=== PATIENT | male | born 1935 | race Caucasian/White ===

== ENCOUNTER 2016-07-15 13:29 | Emergency (ER) | payer MEDICARE ==
[~2016-07-15] VITALS: Ht 172.7 cm; Wt 81.8 kg
[~2016-07-15 13:29] MED LIST: CIPR500T4 PO; DILTCD120 PO; ECOT81TA2 PO; METO25 PO; NORC10TA2 PO
[2016-07-15 13:34] VITALS: BP 132/73; PULSE 88; RESP 16; TEMP 97.8; O2SAT 96
[2016-07-15] MEDS ORDERED: DILT120T PO (13:50)
[2016-07-15] MEDS ORDERED: METO25TA3 PO (13:50)
--- NOTE | 2016-07-15 14:05 | PD ---
HPI Chief Complaint: Complaint Time Seen by Provider: 13:58 Travel History International Travel<30 days: No Contact w/Intl Traveler<30days: No Traveled to known affect area: No History of Present Illness HPI This patient feels well. He has a chronic Root catheter that he is supposed to change every 3 months. He came here to get a Root catheter change. No fever or flank pain. Symptoms severity is mild PFSH Past Medical History Alzheimer's Disease: Yes ("beginning stages" ) Arthritis: Yes (right knee- limps) Autoimmune Disease: No Heart Rhythm Problems: No Cancer: No Cardiovascular Problems: Yes High Cholesterol: No Chest Pain: No Congestive Heart Failure: No Diminished Hearing: Yes (right side hearing aids) Endocrine: No Gastrointestinal Disorders: No Genitourinary: No Hypertension: Yes Immune Disorder: No Inguinal Hernia: Yes Implanted Vascular Access Dvce: No Musculoskeletal: Yes Neurologic: No Psychiatric: No Reproductive: No Respiratory: No PNEUMOCCOCAL Vaccine (Year): 1 Past Surgical History Abdominal Surgery: Yes (gall bladder, appendectomy) Appendectomy: Yes Cardiac Surgery: No Ear Surgery: No Endocrine Surgery: No Eye Surgery: Yes (cataract removal) Genitourinary Surgery: No Gynecologic Surgery: No Joint Replacement: Yes (L shoulder and R knee) Neurologic Surgery: Yes Oral Surgery: No Thoracic Surgery: No Other Surgery: Yes Social History Alcohol Use: Yes (Occassional) Tobacco Use: No Substance Use: No Allergies-Medications (Allergen,Severity, Reaction): Coded Allergies: Sulfa (Verified Allergy, Severe, Hives, 07/15/16) Reported Meds & Prescriptions Reported Meds & Active Scripts Active Reported Metoprolol Tartrate 25 Mg Tab 12.5 Mg PO BID Diltiazem (Diltiazem HCl) 120 Mg Tab 120 Mg PO DAILY Review of Systems General / Constitutional: No: Fever HENT: No: Headaches Cardiovascular: No: Chest Pain or Discomfort Physical Exam Narrative GASTROINTESTINAL: Abdomen soft, non-tender, nondistended. Positive bowel sounds. No hepato-splenomegaly, or palpable masses. No guarding. SKIN: Inspection shows no rash or ulcers. Palpation shows no induration or nodules. Data Data Last Documented VS Vital Signs Date Time Temp Pulse Resp B/P Pulse Ox O2 Delivery O2 Flow Rate FiO2 07/15/16 13:34 97.8 88 16 132/73 96 Orders Urinary Catheter - Remove (07/15/16 13:58) Urinary Catheter Insert/Apply (07/15/16 13:58) MDM Medical Decision Making Medical Screen Exam Complete: Yes Emergency Medical Condition: Yes Medical Record Reviewed: Yes Differential Diagnosis Root catheter change, catheter malfunction, UTI Narrative Course I have reviewed the patient's electronic medical record. We are going to change up Root catheter manager mental health has spoken with the patient about follow-up and better ways to get the catheter change than emergency room visit Diagnosis Primary Impression: Urinary catheter (Root) change required Additional Instructions: The patient was advised to follow up with their physician and return if they worsen. Arrange outpatient Root catheter change for next time Med/Other Pt SpecificInfo: Other Disposition: 01 DISCHARGE HOME Condition: Stable Anshu Bradshaw MD Jul 15, 2016 14:05
== END 2016-07-15 14:29 | disposition home or self-care (01) ==
LOC: PHED 13:29
DX: Z46.6 Encounter for fitting and adjustment of urinary device (principal); F02.80 Dementia in other diseases classified elsewhere, unspecified severity, without behavioral disturbance, psychotic disturbance, mood disturbance, and anxiety; G30.9 Alzheimer's disease, unspecified; I10 Essential (primary) hypertension
CPT/HCPCS: 51702

== ENCOUNTER 2016-08-11 11:56 | Inpatient (IN) | payer MEDICARE ==
[2016-08-11] VITALS (13 sets, daily range): BP systolic 93–152; BP diastolic 52–85; PULSE 73–165; RESP 16–32; TEMP 98.3–100.2; O2SAT 96–100
[~2016-08-11] VITALS: Ht 152.4 cm; Wt 88.2 kg
[~2016-08-11 11:56] MED LIST changes: -CIPR500T4 PO; +DILT120T PO; -DILTCD120 PO; -ECOT81TA2 PO; -METO25 PO; +METO25TA3 PO; -NORC10TA2 PO
--- NOTE | 2016-08-11 12:37 | PD ---
HPI Chief Complaint: Altered Mental Status Time Seen by Provider: 12:35 Travel History International Travel<30 days: No Contact w/Intl Traveler<30days: No Traveled to known affect area: No History of Present Illness HPI 80-year-old male with a history of hypertension, dementia and indwelling Root catheter is brought to the emergency department from home by EMS for evaluation of altered mental status. Per EMS report the patient's called because he has been more confused than his baseline over the past few days and she thinks he has a urinary tract infection. Per EMS patient gets recurrent urinary tract infections which does cause him more confusion. The patient is noted to have audible wheezing but denies shortness of breath, per EMS his initial oxygen saturation was 89-90% on room air and he was placed on 2 L nasal cannula which brought his saturations to 98%. The patient denies any complaints. He denies any chest pain, shortness of breath, difficulty breathing, abdominal pain, nausea, vomiting, diarrhea, headache, dizziness. The patient is awake, alert and oriented to person, place but not time. When asked why he is in the hospital he states "because my is a pain." He denies smoking cigarettes but states he did used to smoke for many years. No other complaints. PFSH Past Medical History Alzheimer's Disease: Yes ("beginning stages" ) Arthritis: Yes (right knee- limps) Autoimmune Disease: No Heart Rhythm Problems: No Cancer: No Cardiovascular Problems: Yes High Cholesterol: No Chest Pain: No Congestive Heart Failure: No Diminished Hearing: Yes (right side hearing aids) Endocrine: No Gastrointestinal Disorders: No Genitourinary: No Hypertension: Yes Immune Disorder: No Inguinal Hernia: Yes Implanted Vascular Access Dvce: No Musculoskeletal: Yes Neurologic: No Psychiatric: No Reproductive: No Respiratory: No Tetanus Vaccination: Unknown PNEUMOCCOCAL Vaccine (Year): 1 Past Surgical History Abdominal Surgery: Yes (gall bladder, appendectomy) Appendectomy: Yes Cardiac Surgery: No Ear Surgery: No Endocrine Surgery: No Eye Surgery: Yes (cataract removal) Genitourinary Surgery: No Gynecologic Surgery: No Joint Replacement: Yes (L shoulder and R knee) Neurologic Surgery: Yes Oral Surgery: No Thoracic Surgery: No Other Surgery: Yes Social History Alcohol Use: Yes (Occassional) Tobacco Use: No Substance Use: No Allergies-Medications (Allergen,Severity, Reaction): Coded Allergies: Sulfa (Verified Allergy, Severe, Hives, 08/11/16) Reported Meds & Prescriptions Reported Meds & Active Scripts Active Reported Metoprolol Tartrate 25 Mg Tab 12.5 Mg PO BID Diltiazem (Diltiazem HCl) 120 Mg Tab 120 Mg PO DAILY Review of Systems ROS Limitations: Poor Historian (dementia) Except as stated in HPI: all other systems reviewed are Neg Physical Exam Exam Limitations: Poor Historian (dementia) Narrative GENERAL: Well-nourished and well-developed male patient in no acute distress with mild work of breathing. SKIN: Warm and dry. HEAD: Normocephalic and atraumatic. EYES: No injection, drainage, or hyphema noted. PERRLA. EOMI. ENT: No nasal drainage noted. Oropharynx is clear. NECK: Supple and the trachea is midline. CARDIOVASCULAR: Regular rate and rhythm. RESPIRATORY: Bilateral wheezing throughout with mild work of breathing. No accessory muscle use, rhonchi, or crackles. Patient able to speak in full sentences without difficulty. GASTROINTESTINAL: Abdomen is soft, non-tender, and nondistended. MUSCULOSKELETAL: No obvious deformities, swelling, cyanosis, or ecchymosis is present throughout the upper and lower extremities. Patient has full range of motion without any signs of neurovascular compromise. NEUROLOGICAL: Awake, alert, and oriented x 2. Normal speech and gait. Cranial nerves are grossly intact. Data Data Last Documented VS Vital Signs Date Time Temp Pulse Resp B/P Pulse Ox O2 Delivery O2 Flow Rate FiO2 08/11/16 13:00 99.0 96 18 127/68 99 Nasal Cannula 2 Orders Blood Glucose (08/11/16 12:09) Iv Access Insert/Monitor (08/11/16 12:09) Complete Blood Count With Diff (08/11/16 12:09) Ckmb (Isoenzyme) Profile (08/11/16 12:09) Troponin I (08/11/16 12:09) Urinalysis - C+S If Indicated (08/11/16 12:09) Influenzae A/B Antigen (08/11/16 12:32) Chest, Single Ap (08/11/16 12:32) Albuterol-Ipratropium Neb (Duoneb Neb) (08/11/16 12:45) Comprehensive Metabolic Panel (08/11/16 12:32) Lactic Acid Sepsis Protocol (08/11/16 12:59) Blood Culture (08/11/16 12:59) Methylprednisolone So Succ Inj (Solumedr (08/11/16 13:15) Labs Laboratory Tests Test 08/11/16 12:10 White Blood Count 14.4 TH/MM3 Red Blood Count 4.35 MIL/MM3 Hemoglobin 13.0 GM/DL Hematocrit 39.0 % Mean Corpuscular Volume 89.7 FL Mean Corpuscular Hemoglobin 29.9 PG Mean Corpuscular Hemoglobin 33.3 % Concent Red Cell Distribution Width 14.4 % Platelet Count 144 TH/MM3 Mean Platelet Volume 9.3 FL Neutrophils (%) (Auto) 90.0 % Lymphocytes (%) (Auto) 3.2 % Monocytes (%) (Auto) 6.7 % Eosinophils (%) (Auto) 0.0 % Basophils (%) (Auto) 0.1 % Neutrophils # (Auto) 12.9 TH/MM3 Lymphocytes # (Auto) 0.5 TH/MM3 Monocytes # (Auto) 1.0 TH/MM3 Eosinophils # (Auto) 0.0 TH/MM3 Basophils # (Auto) 0.0 TH/MM3 CBC Comment DIFF FINAL Differential Comment Sodium Level 132 MEQ/L Potassium Level 4.8 MEQ/L Chloride Level 99 MEQ/L Carbon Dioxide Level 22.0 MEQ/L Anion Gap 11 MEQ/L Blood Urea Nitrogen 57 MG/DL Creatinine 4.72 MG/DL Estimat Glomerular Filtration 12 ML/MIN Rate Random Glucose 102 MG/DL Calcium Level 8.6 MG/DL Aspartate Amino Transf 22 U/L (AST/SGOT) Alanine Aminotransferase 16 U/L (ALT/SGPT) Albumin 3.1 GM/DL MDM Medical Decision Making Medical Screen Exam Complete: Yes Emergency Medical Condition: Yes Differential Diagnosis Pneumonia versus bronchitis versus COPD exacerbation versus influenza versus UTI versus electrolyte abnormality Narrative Course 80-year-old male was brought to the emergency department by EMS for evaluation of altered mental status. Patient is afebrile, vital signs are stable. A little tachycardic with a heart rate of 99 bpm. Per EMS he was initially 89-90 % saturating on room air, he is currently 98% on 2 L nasal cannula. He does have wheezing and mild work of breathing. 3 duo nebs have been ordered. IV access is obtained, labs have been drawn and sent. The urine in his leg bag does appear to be cloudy, he likely has a urinary tract infection. CBC shows an elevated white blood cell count of 14.4. Blood cultures and lactic acid have been noted. Initial laboratory and imaging studies have been ordered and the patient will be evaluated by another provider when a medical bed becomes available. The triage nurse is aware of the plan. The proposed plan of evaluation and treatment was discussed with the patient who verbalizes an understanding and agrees to proceed. Trisha Sanchez Aug 11, 2016 12:37
[2016-08-11 12:48] LABS: AUTOMATED NEUTROPHIL # 12.9 TH/MM3 (1.8-7.7); BASOPHIL % 0.1 % (0.0-2.0); HEMO FLAGS DIFF FINAL; LYMPH % 3.2 % (9.0-44.0); LYMPHOCYTE # 0.5 TH/MM3 (1.0-4.8); MEAN CELL VOLUME 89.7 FL (80.0-100.0); MEAN CORPUSCULAR HEMOGLOBIN 29.9 PG (27.0-34.0); MEAN CORPUSCULAR HGB CONC 33.3 % (32.0-36.0); MONO % 6.7 % (0.0-8.0); PLATELET COUNT 144 TH/MM3 (150-450); RED BLOOD COUNT 4.35 MIL/MM3 (4.50-5.90); RED CELL DISTRIBUTION WIDTH 14.4 % (11.6-17.2); WHITE BLOOD COUNT 14.4 TH/MM3 (4.0-11.0)
[2016-08-11 12:59] LABS: BLOOD, URINE SMALL (NEG); GLUCOSE,URINE NEG (NEG); KETONE, URINE NEG (NEG); NITRITE,URINE NEG (NEG); PH, URINE 7.5 (5.0-8.5); URINE COLOR YELLOW (YELLW/STRAW)
[2016-08-11 13:03] LABS: BACTERIA, URINE MANY /hpf
[2016-08-11 13:04] LABS: COMMENT (UR) CATH-CULTURE IND; CULTURE IF INDICATED CATH CULTURE IND
[2016-08-11 13:06] LABS: ALT (GPT) 16 U/L (12-78); ANION GAP 11 MEQ/L (5-15); AST (GOT) 22 U/L (15-37); BLOOD UREA NITROGEN 57 MG/DL (7-18); CHLORIDE 99 MEQ/L (98-107); GLOMERULAR FILTRATION RATE 12 ML/MIN (>89); POTASSIUM 4.8 MEQ/L (3.5-5.1); SODIUM (NA) 132 MEQ/L (136-145)
[2016-08-11 13:08] LABS: TRIPLE PHOSPHATE CRYSTAL,URINE RARE /hpf
[2016-08-11 13:08] LABS: ALKALINE PHOSPHATASE 48 U/L (45-117); TOTAL BILIRUBIN ADULT 1.4 MG/DL (0.2-1.0)
[2016-08-11] MEDS ORDERED: SODIUM CHLOR 0.9% 1000 ML INJ 1,000 ML IV ONE ×3 (13:15→15:15)
[2016-08-11] MEDS ORDERED: methylPREDNISolone SOD SUCC 125 MG/2 ML VIAL IV PUSH ONE (13:15)
[2016-08-11] MEDS ORDERED: cefTRIAXone INJ 1,000 MG in SODIUM CHLORIDE 0.9% INJ 100 ML IV ONE (13:15)
--- NOTE | 2016-08-11 13:16 | PD ---
Physical Exam Date Seen by Provider: Aug 11, 2016 Time Seen by Provider: 13:13 Narrative The patient is a 80-year-old male who is initially evaluate by the mid -level provider. Please refer to initial history, physical, diagnostic evaluation, and treatment modality plan. Data Data Last Documented VS Vital Signs Date Time Temp Pulse Resp B/P Pulse Ox O2 Delivery O2 Flow Rate FiO2 08/11/16 15:12 139 32 97/55 98 Nasal Cannula 2 08/11/16 13:00 99.0 Orders Blood Glucose (08/11/16 12:09) Iv Access Insert/Monitor (08/11/16 12:09) Complete Blood Count With Diff (08/11/16 12:09) Ckmb (Isoenzyme) Profile (08/11/16 12:09) Troponin I (08/11/16 12:09) Urinalysis - C+S If Indicated (08/11/16 12:09) Influenzae A/B Antigen (08/11/16 12:32) Chest, Single Ap (08/11/16 12:32) Albuterol-Ipratropium Neb (Duoneb Neb) (08/11/16 12:45) Comprehensive Metabolic Panel (08/11/16 12:32) Lactic Acid Sepsis Protocol (08/11/16 12:59) Blood Culture (08/11/16 12:59) Methylprednisolone So Succ Inj (Solumedr (08/11/16 13:15) Urine Culture (08/11/16 12:30) CKMB (08/11/16 12:10) CKMB% (08/11/16 12:10) Ceftriaxone Inj (Rocephin Inj) (08/11/16 13:15) Sodium Chlor 0.9% 1000 Ml Inj (Ns 1000 M (08/11/16 13:15) Urinary Catheter Insert/Apply (08/11/16 13:12) Urinary Catheter - Remove (08/11/16 13:12) Sodium Chlor 0.9% 1000 Ml Inj (Ns 1000 M (08/11/16 13:30) Resp Blood Gas Venous (08/11/16 ) Electrocardiogram (08/11/16 ) Blood Gas Venous (Vbg) (08/11/16 14:48) Diltiazem Inj (Cardizem Inj) (08/11/16 15:00) Etomidate Inj (Amidate Inj) (08/11/16 15:15) Rocuronium Inj (Zemuron Inj) (08/11/16 15:15) Rocuronium Inj (Zemuron Inj) (08/11/16 15:02) Piperacil-Tazo 4.5 Gm Premix (Zosyn 4.5 (08/11/16 15:03) Etomidate Inj (Amidate Inj) (08/11/16 15:04) Rocuronium Inj (Zemuron Inj) (08/11/16 15:05) Sodium Chlor 0.9% 1000 Ml Inj (Ns 1000 M (08/11/16 15:15) Chest, Single Ap (08/11/16 ) Admit Order (Ed Use Only) (08/11/16 15:19) Labs Laboratory Tests Test 08/11/16 08/11/16 08/11/16 08/11/16 12:10 12:30 14:08 14:48 White Blood Count 14.4 TH/MM3 Red Blood Count 4.35 MIL/MM3 Hemoglobin 13.0 GM/DL Hematocrit 39.0 % Mean Corpuscular Volume 89.7 FL Mean Corpuscular Hemoglobin 29.9 PG Mean Corpuscular Hemoglobin 33.3 % Concent Red Cell Distribution Width 14.4 % Platelet Count 144 TH/MM3 Mean Platelet Volume 9.3 FL Neutrophils (%) (Auto) 90.0 % Lymphocytes (%) (Auto) 3.2 % Monocytes (%) (Auto) 6.7 % Eosinophils (%) (Auto) 0.0 % Basophils (%) (Auto) 0.1 % Neutrophils # (Auto) 12.9 TH/MM3 Lymphocytes # (Auto) 0.5 TH/MM3 Monocytes # (Auto) 1.0 TH/MM3 Eosinophils # (Auto) 0.0 TH/MM3 Basophils # (Auto) 0.0 TH/MM3 CBC Comment DIFF FINAL Differential Comment Sodium Level 132 MEQ/L Potassium Level 4.8 MEQ/L Chloride Level 99 MEQ/L Carbon Dioxide Level 22.0 MEQ/L Anion Gap 11 MEQ/L Blood Urea Nitrogen 57 MG/DL Creatinine 4.72 MG/DL Estimat Glomerular Filtration 12 ML/MIN Rate Random Glucose 102 MG/DL Calcium Level 8.6 MG/DL Total Bilirubin 1.4 MG/DL Aspartate Amino Transf 22 U/L (AST/SGOT) Alanine Aminotransferase 16 U/L (ALT/SGPT) Alkaline Phosphatase 48 U/L Total Creatine Kinase 346 U/L Creatine Kinase MB 6.0 NG/ML Creatine Kinase MB % 1.7 % Troponin I 0.03 NG/ML Total Protein 6.7 GM/DL Albumin 3.1 GM/DL Urine Color YELLOW Urine Turbidity CLOUDY Urine pH 7.5 Urine Specific Artemas 1.015 Urine Protein GREATER THAN 600 mg/dL Urine Glucose (UA) NEG mg/dL Urine Ketones NEG mg/dL Urine Occult Blood SMALL Urine Nitrite NEG Urine Bilirubin NEG Urine Urobilinogen LESS THAN 2.0 MG/DL Urine Leukocyte Esterase LARGE Urine RBC 376 /hpf Urine WBC /hpf Urine WBC Clumps MANY Urine Squamous Epithelial /hpf Cells Urine Triple Phosphate RARE /hpf Crystals Urine Bacteria MANY /hpf Urine Yeast (Budding) Microscopic Urinalysis Comment CATH-CULTURE IND Lactic Acid Level 2.2 mmol/L Blood Gas Puncture Site I.V. Blood Gas Patient Temperature 98.6 Venous Blood pH 7.31 Venous Blood Partial Pressure 42 mmHg CO2 Venous Blood Partial Pressure 29 mmHg O2 Venous Blood HCO3 20 mmol/L Venous Blood Oxygen Saturation 47 % Venous Blood Oxygen Content 8.4 Vol % Venous Blood Base Excess -5.2 mmol/L Oxygen Delivery Device NASAL CANNULA Blood Gas Liter Flow 2 L/M [facility] Medical Record Reviewed: Yes Supervised Visit with RHEA: Yes Interpretation(s) EKG reveals atrial fibrillation with RVR. RSR prime V1 with QRS 120 ms, incomplete right bundle branch block. Nonspecific ST changes. Last Impressions Chest X-Ray 08/11/16 1232 Signed Impressions: Service Date/Time: Thursday, August 11, 2016 12:33 - CONCLUSION: Compensated cardiomegaly otherwise negative. Tony Poe MD FACR Laboratory Tests Test 08/11/16 08/11/16 12:10 12:30 White Blood Count 14.4 TH/MM3 Red Blood Count 4.35 MIL/MM3 Hemoglobin 13.0 GM/DL Hematocrit 39.0 % Mean Corpuscular Volume 89.7 FL Mean Corpuscular Hemoglobin 29.9 PG Mean Corpuscular Hemoglobin 33.3 % Concent Red Cell Distribution Width 14.4 % Platelet Count 144 TH/MM3 Mean Platelet Volume 9.3 FL Neutrophils (%) (Auto) 90.0 % Lymphocytes (%) (Auto) 3.2 % Monocytes (%) (Auto) 6.7 % Eosinophils (%) (Auto) 0.0 % Basophils (%) (Auto) 0.1 % Neutrophils # (Auto) 12.9 TH/MM3 Lymphocytes # (Auto) 0.5 TH/MM3 Monocytes # (Auto) 1.0 TH/MM3 Eosinophils # (Auto) 0.0 TH/MM3 Basophils # (Auto) 0.0 TH/MM3 CBC Comment DIFF FINAL Differential Comment Sodium Level 132 MEQ/L Potassium Level 4.8 MEQ/L Chloride Level 99 MEQ/L Carbon Dioxide Level 22.0 MEQ/L Anion Gap 11 MEQ/L Blood Urea Nitrogen 57 MG/DL Creatinine 4.72 MG/DL Estimat Glomerular Filtration 12 ML/MIN Rate Random Glucose 102 MG/DL Calcium Level 8.6 MG/DL Total Bilirubin 1.4 MG/DL Aspartate Amino Transf 22 U/L (AST/SGOT) Alanine Aminotransferase 16 U/L (ALT/SGPT) Alkaline Phosphatase 48 U/L Total Creatine Kinase 346 U/L Creatine Kinase MB 6.0 NG/ML Creatine Kinase MB % 1.7 % Troponin I 0.03 NG/ML Total Protein 6.7 GM/DL Albumin 3.1 GM/DL Urine Color YELLOW Urine Turbidity CLOUDY Urine pH 7.5 Urine Specific Artemas 1.015 Urine Protein GREATER THAN 600 mg/dL Urine Glucose (UA) NEG mg/dL Urine Ketones NEG mg/dL Urine Occult Blood SMALL Urine Nitrite NEG Urine Bilirubin NEG Urine Urobilinogen LESS THAN 2.0 MG/DL Urine Leukocyte Esterase LARGE Urine RBC 376 /hpf Urine WBC /hpf Urine WBC Clumps MANY Urine Squamous Epithelial /hpf Cells Urine Triple Phosphate RARE /hpf Crystals Urine Bacteria MANY /hpf Urine Yeast (Budding) Microscopic Urinalysis Comment CATH-CULTURE IND Differential Diagnosis Differential diagnosis includes sepsis, pneumonia, acute renal failure, pyelonephritis, dehydration, COPD exacerbation, bronchitis, acute coronary syndrome. Narrative Course I, Dr. Villafana, have reviewed the advance practice practitioner's documentation and am in agreement, met with the patient face to face, made the diagnosis, and the medical decision making was done by me. *My assessment and Findings: 80-year-old male who is initially evaluated by the mid-level provider. Please refer to the initial history, physical, diagnostic evaluation, treatment modality plan. The patient was noted to have mild increased work of breathing, audible wheezing, and cloudy urine. The patient is afebrile, however, had an elevated white count of 14.4. The patient's creatinine was noted be elevated at 4.72, EMR reveals previous creatinines have been less than 2. The patient appears to have acute renal failure with significantly dirty urine. Therefore, Root catheter was removed and a new Root catheter was inserted. The patient was administer Rocephin 1 g intravenously after lactic acid and blood cultures were sent to lab. The patient was administered 1 L of IV fluids. The patient will be admitted. The patient went into atrial fibrillation with RVR with a rate between 130 and 150. The patient's respiratory rate increased to 30, therefore, VBG was obtained. VBG reveals pH is 7.3, no significant acidosis. However, patient's mental status appears to be declining and respiratory rate is increasing. I had a discussion with the and family murmurs at bedside, they state the patient is a full code and requested everything be done. As the patient's respiratory was increasing and he would need IV fluids for his sepsis and acute renal failure, the decision to intubate the patient was made. The patient is not a great candidate for BiPAP with his declining mental status and history of dementia. I had a discussion with the patient's regarding his decreasing mental status with increasing respiratory rate, she would like the patient intubated if indicated. Therefore, the patient was intubated. The patient was administered Cardizem 15 mg intravenously for atrial fibrillation, heart rate came down to 99, systolic blood pressure came down to 90s, then a heart rate increased back to the 150s and blood pressure went back to the systolic of 150s. Another dose of Cardizem will be administered. The patient will be placed on propofol. The patient will be admitted to the intensive care unit. Zosyn was added as [place] [facility] [place] is [place]. Critical Care Narrative Aggregate critical care time was 45 minutes. Time to perform other separately billable procedures was not included in the critical care time. My time did not include minutes spent treating any other patients simultaneously or on activities that did not directly contribute to the patient's treatment. The services I provided to this patient were to treat and/or prevent clinically significant deterioration that could result in: Aspiration, anoxia, hypoxia, respiratory distress, respiratory arrest, severe sepsis, acute renal failure, . I provided critical care services requiring my management, as noted below: Chart data review, documentation time, medication orders and management, vital sign assessments/reviewing monitor data, ordering and reviewing lab tests, ordering and interpreting/reviewing x-rays and diagnostic studies, care of the patient and discussion of the patient with the admitting physicians. Procedures Procedure Narrative After the risks and benefits were discussed the following procedure was performed: INTUBATION: The patient was put in optimal position for the procedure. Rapid sequence intubation was initiated by me using 20 milligrams of etomidate IV and 75 milligrams of rocuronium IV. The patient was intubated with a 8-0 cuffed endotracheal tube. Tube placement was confirmed by visualization of the tube and balloon passing through the cords, capnometry and subsequent chest x-ray. Breath sounds were equal and well aerated bilaterally postintubation. No breath sounds over stomach. Patient tolerated procedure well. After the risks and benefits were discussed the following procedure was performed: CENTRAL VENOUS LINE: The site was prepped with Betadine and sterilely draped. It was infiltrated with 1% lidocaine plain. The deep vein was cannulated using normal Seldinger technique. A central line was placed in the right internal jugular site and secured with simple interrupted suture. The site was sterilely dressed. The patient tolerated the procedure well. Sepsis Criteria SIRS Criteria (2 or more): Heart rate over 90, WBC > 13208, < 4000 or > 10% bands Severe Sepsis (+one): Organ Dysfunction, Acute Oliguria/Renal Failure Criteria Outcome: Meets severe sepsis criteria Physician Communication Physician Communication I discussed the patient with Dr. Lagunas who agrees with admission. Diagnosis Primary Impression: Septic shock due to urinary tract infection Additional Impressions: UTI (urinary tract infection) Qualified Code: T83.511A - Urinary tract infection associated with indwelling urethral catheter, initial encounter Acute kidney injury Admitting Information Admitting Physician Requests: Admit Condition: Critical Carlos Villafana MD Aug 11, 2016 13:16
[2016-08-11] MEDS ORDERED: DONE5TAB7 PO (13:37)
[2016-08-11] MEDS ORDERED: METO25TA3 PO (13:37)
[2016-08-11] MEDS ORDERED: LISI2.5T3 PO (13:37)
[2016-08-11] MEDS: RESP: ALBUTEROL 2.5 MG/IPRATROPIUM 0.5 MG NEB (SCH) INH ×3 (13:39→19:47)
--- NOTE | 2016-08-11 14:03 | RADRPT ---
EXAM DATE/TIME: 08/11/2016 12:33 [facility] COMPARISON: CHEST SINGLE AP, October 25, 2015, 19:36. INDICATIONS: Shortness of breath. MEDICAL HISTORY: Hypertension. Arthritis. SURGICAL HISTORY: None. ENCOUNTER: Initial ACUITY: 1 day PAIN SCORE: 0/10 LOCATION: Bilateral chest FINDINGS: Shunt tube sis seen coursing down the right chest. The lungs are clear. The heart is minimally enlarg ed. The pulmonary vascularity is normal. There is no evidence for infiltrate or failure. The portion of the bony skeleton visualized is unremarkable. CONCLUSION: Compensated cardiomegaly otherwise negative. Tony Poe MD FACR on August 11, 2016 at 13:04 Board Certified Radiologist. This report was verified electronically.
[2016-08-11 14:54] LABS: BLOOD GAS VENOUS BASE EXCESS -5.2 mmol/L (-2-2); BLOOD GAS VENOUS HCO3 20 mmol/L (22-26); BLOOD GAS VENOUS O2 CONTENT 8.4 Vol % (9.0-17.0); BLOOD GAS VENOUS O2 HGB SAT 47 % (70-76); BLOOD GAS VENOUS PCO2 42 mmHg (44-48); BLOOD GAS VENOUS PO2 29 mmHg (35-40); BLOOD GAS VENOUS pH 7.31 (7.360-7.400); CRITICAL VALUE YES; DRAW SITE I.V.; LITER FLOW 2 L/M; OXYGEN DEVICE NASAL CANNULA; STAT YES; TEMP CORR TO 98.6
[2016-08-11] MEDS ORDERED: DILTIAZEM HCL 25 MG/5 ML VIAL IV ONE ×2 (15:00→16:00)
[2016-08-11] MEDS ORDERED: ROCURONIUM INJ 50 MG/5 ML VIAL ONE ×2 (15:02→15:05)
[2016-08-11] MEDS ORDERED: PIPERACIL-TAZO 4.5 GM PREMIX 100 ML IV STA (15:03)
[2016-08-11] MEDS ORDERED: ETOMIDATE 40 MG/20 ML VIAL ONE (15:04)
[2016-08-11] MEDS ORDERED: ETOMIDATE 20 MG/10 ML VIAL IV PUSH ONE (15:15)
[2016-08-11] MEDS ORDERED: ROCURONIUM INJ 50 MG/5 ML VIAL IV ONE (15:15)
[2016-08-11] MEDS ORDERED: PROPOFOL 500 MG/50 ML INJ 50 ML ONE (15:22)
[2016-08-11] MEDS: PROPOFOL 1000 MG/100 ML INJ 100 ML IV SCH ×2 (16:01→21:13)
[2016-08-11 16:16] LABS: LACTIC ACID GHOST NOT REPORTABLE
--- NOTE | 2016-08-11 16:20 | HHI.HP ---
[facility] Service Critical Care Medicine Primary Care Physician Non-Staff Admission Diagnosis severe sepsis secondary to UTI, acute renal failure, respiratory dis Diagnosis: Travel History International Travel<30 Days: No Contact w/Intl Traveler <30 Da: No Traveled to Known Affected Are: No Sepsis Criteria SIRS Criteria (2 or more): Heart rate over 90, RR > 20 or PaCO2 < 32 Severe Sepsis (+one): Hypotension, Lactate >2, Acute Oliguria/Renal Failure Criteria Outcome: Meets severe sepsis criteria History of Present Illness This gentleman presented to the ED for evaluation of altered mental status . The patient is a 80-year-old male with a PMH of hypertension, dementia and indwelling Root. Patient reported that the patient had progressive altered mental status for several days and she feels is secondary to urinary tract infection, as he has had a previous symptomatology. The patient is noted to have audible wheezing but denies shortness of breath, per EMS his initial oxygen saturation was 89-90% on room air and he was placed on 2 L nasal cannula which brought his saturations to 98%. In the ED the patient was noted to become hypotensive, and had rhythms A. fib with RVR. The patient was intubated , right IJ central line was placed and the patient received IV Cardizem, 15mg and 20 mg. Critical care medicine is consulted for treatment and management. PFSH Past Medical History Alzheimer's Disease: Yes ("beginning stages" ) Arthritis: Yes (right knee- limps) Autoimmune Disease: No Heart Rhythm Problems: No Cancer: No Cardiovascular Problems: Yes High Cholesterol: No Chest Pain: No Congestive Heart Failure: No Diminished Hearing: Yes (right side hearing aids) Endocrine: No Gastrointestinal Disorders: No Genitourinary: No Hypertension: Yes Immune Disorder: No Inguinal Hernia: Yes Implanted Vascular Access Dvce: No Musculoskeletal: Yes Neurologic: No Psychiatric: No Reproductive: No Respiratory: No Tetanus Vaccination: Unknown PNEUMOCCOCAL Vaccine (Year): 1 Past Surgical History Abdominal Surgery: Yes (gall bladder, appendectomy) Appendectomy: Yes Cardiac Surgery: No Ear Surgery: No Endocrine Surgery: No Eye Surgery: Yes (cataract removal) Genitourinary Surgery: No Gynecologic Surgery: No Joint Replacement: Yes (L shoulder and R knee) Neurologic Surgery: Yes Oral Surgery: No Thoracic Surgery: No Other Surgery: Yes Social History Alcohol Use: Yes (Occassional) Tobacco Use: No Substance Use: No Allergies-Medications (Allergen,Severity, Reaction): Coded Allergies: Sulfa (Verified Allergy, Severe, Hives, 08/11/16) Reported Meds & Prescriptions Reported Meds & Active Scripts Active Reported Metoprolol Tartrate 25 Mg Tab 12.5 Mg PO BID Diltiazem (Diltiazem HCl) 120 Mg Tab 120 Mg PO DAILY Review of Systems ROS Limitations: Poor Historian (dementia) Except as stated in HPI: all other systems reviewed are Neg Past Family Social History Allergies: Coded Allergies: Sulfa (Verified Allergy, Severe, Hives, 08/11/16) Physical Exam Vital Signs Vital Signs Date Time Temp Pulse Resp B/P Pulse Ox O2 Delivery O2 Flow Rate FiO2 08/11/16 16:15 105 16 114/58 96 Ventilator 60 08/11/16 16:02 96 18 98/52 96 Ventilator 60 08/11/16 15:12 139 32 97/55 98 Nasal Cannula 2 08/11/16 15:12 165 16 152/85 99 Ventilator 08/11/16 15:10 60 08/11/16 13:00 99.0 96 18 127/68 99 Nasal Cannula 2 08/11/16 12:01 98.3 96 22 110/65 98 Physical Exam GENERAL: Critically ill-appearing male intubated on propofol infusion currently at 40 mcgs, diaphoretic, BP 171/89, heart rate 140's SKIN: Diaphoretic HEAD: Atraumatic. Normocephalic. EYES: Pupils equal and round. No scleral icterus. No injection or drainage. ENT: No nasal bleeding or discharge. Mucous membranes pink and moist. NECK: Trachea midline. No JVD. Oral endotracheally intubated CARDIOVASCULAR: Irregularly irregular rate and rhythm. RESPIRATORY: Mechanical ventilation. Clear to auscultation. Breath sounds equal bilaterally. GASTROINTESTINAL: Abdomen soft, non-tender, nondistended. No guarding. MUSCULOSKELETAL: Extremities without clubbing, cyanosis, or edema. No obvious deformities. NEUROLOGICAL: RASS -3. Intubated and sedated unable to assess motor function. Laboratory Laboratory Tests Test 08/11/16 08/11/16 08/11/16 08/11/16 12:10 12:30 14:08 14:48 White Blood Count 14.4 Red Blood Count 4.35 Hemoglobin 13.0 Hematocrit 39.0 Mean Corpuscular Volume 89.7 Mean Corpuscular Hemoglobin 29.9 Mean Corpuscular Hemoglobin 33.3 Concent Red Cell Distribution Width 14.4 Platelet Count 144 Mean Platelet Volume 9.3 Neutrophils (%) (Auto) 90.0 Lymphocytes (%) (Auto) 3.2 Monocytes (%) (Auto) 6.7 Eosinophils (%) (Auto) 0.0 Basophils (%) (Auto) 0.1 Neutrophils # (Auto) 12.9 Lymphocytes # (Auto) 0.5 Monocytes # (Auto) 1.0 Eosinophils # (Auto) 0.0 Basophils # (Auto) 0.0 CBC Comment DIFF FINAL Differential Comment Sodium Level 132 Potassium Level 4.8 Chloride Level 99 Carbon Dioxide Level 22.0 Anion Gap 11 Blood Urea Nitrogen 57 Creatinine 4.72 Estimat Glomerular Filtration 12 Rate Random Glucose 102 Calcium Level 8.6 Total Bilirubin 1.4 Aspartate Amino Transf 22 (AST/SGOT) Alanine Aminotransferase 16 (ALT/SGPT) Alkaline Phosphatase 48 Total Creatine Kinase 346 Creatine Kinase MB 6.0 Creatine Kinase MB % 1.7 Troponin I 0.03 Total Protein 6.7 Albumin 3.1 Urine Color YELLOW Urine Turbidity CLOUDY Urine pH 7.5 Urine Specific [place] 1.015 Urine Protein GREATER THAN 600 Urine Glucose (UA) NEG Urine Ketones NEG Urine Occult Blood SMALL Urine Nitrite NEG Urine Bilirubin NEG Urine Urobilinogen LESS THAN 2.0 Urine Leukocyte Esterase LARGE Urine RBC 376 Urine WBC Urine WBC Clumps MANY Urine Squamous Epithelial Cells Urine Triple Phosphate RARE Crystals Urine Bacteria MANY Urine Yeast (Budding) Microscopic Urinalysis Comment CATH-CULTURE IND Lactic Acid Level 2.2 Blood Gas Puncture Site I.V. Blood Gas Patient Temperature 98.6 Venous Blood pH 7.31 Venous Blood Partial Pressure 42 CO2 Venous Blood Partial Pressure 29 O2 Venous Blood HCO3 20 Venous Blood Oxygen Saturation 47 Venous Blood Oxygen Content 8.4 Venous Blood Base Excess -5.2 Oxygen Delivery Device NASAL CANNULA Blood Gas Liter Flow 2 Date/Time Procedure Status Source Growth 08/11/16 14:05 Aerobic Blood Culture Received Blood Peripheral Pending 08/11/16 14:05 Anaerobic Blood Culture Received Blood Peripheral Pending 08/11/16 12:30 Urine Culture Received Urine Catheterized Urine Pending Result Diagram: 08/11/16 1210 08/11/16 1210 Imaging Last Impressions Chest X-Ray 08/11/16 1232 Signed Impressions: Service Date/Time: Thursday, August 11, 2016 12:33 - CONCLUSION: Compensated cardiomegaly otherwise negative. Tony Poe MD FACR Septic Shock Reassessment Heart: Irregular Lungs: Clear Skin: Warm, Moist Peripheral Pulses: Bounding Right Radial Bounding Left Radial Bounding Right Dorsalis Pedis Bounding Left Dorsalis Pedis Capillary Refill: Brisk, <2 seconds Assessment and Plan Assessment and Plan This is a critically ill elderly gentleman in septic shock secondary most likely due to recurrent UTI/urosepsis. Discussion with regarding guarded prognosis. Family requests aggressive measures be provided. Neurologic: Encephalopathy most likely secondary to sepsis History of Hydrocephalus WATER SYSTEM OPERATOR shunt in situ / Ventriculomegaly Alzheimer's Dementia Neurochecks per ICU protocol Currently propofol infusion for sedation Obtain CT brain Will resume donepezil Respiratory: Acute Hypoxic Respiratory Failure Maintain O2 sat greater than 92% Obtain ABGs Mechanical ventilator setting 500/14/0.50/5 Ventilator bundle Maintain head of bed 30 Duo nebs every 6 hours scheduled, every 2 hours when necessary SBT trials daily Cardiovascular: Atrial fibrillation with RVR H/O NSTEMI (06/2015) Will continue home medications- metoprolol-resume when clinically indicated, patient is also on lisinopril will hold secondary to JOSE M Obtain EKG Heart rate 140's-will begin Cardizem infusion, the heart rate does not improve with adequate hydration and previous dosing in ED of Cardizem Maintain MAP greater than 65mmHg Renal: JOSE M CKD stage III Urosepsis Dehydration Recurrent UTI Nephrology consult-recommendations appreciated BUN 57, creatinine 4.72, patient bolused with 3 L 0.9 NaCl, and continuous IV fluids normal saline 100 cc/hour Follow-up BMP - Strict I/Os FEN/GI: Chronic hyponatremia Review of previous 3 admissions 2016 sodium [id number], will continue to monitor Maintain nothing by mouth status Dietary consult Insert orogastric tube Heme/ID: Septic shock most likely secondary to urosepsis Obtain blood urine and sputum cultures Obtain serial lactate level In the ED-Zosyn, Rocephin x 1 dose Begin Zosyn every 6 hours, and Zyvox secondary to indwelling WATER SYSTEM OPERATOR shunt catheter Endocrine: Glucose monitoring per ICU protocol -- SSI Prophylaxis: GI Prophylaxis Pepcid DVT Prophylaxis -- SCDs Heparin 5000 BID Lines: Right IJ central line Dr. Villafana (08/11), peripheral IVs 2 Dispo: This patient remains critically ill with one or more organ systems which are or may become a threat to life. I have spent in excess of 57 minutes discontinuously in the care and management of this patient. This time is exclusive of procedures, and includes, but is not limited to, evaluation of the patient, review of the medical record, discussions with family, consultants, nursing staff, or respiratory therapy, and documentation in the medical record. Code Status Full Discussed Condition With ED RN at bedside, Bonnie Layne MD Aug 11, 2016 16:20
[2016-08-11] MEDS: SODIUM CHLOR 0.9% 1000 ML INJ 1,000 ML IV SCH (16:22)
[2016-08-11] MEDS ORDERED: DEXTROSE 50% IN WATER 50 ML VIAL(D50) IV PUSH PRN (16:30)
[2016-08-11] MEDS ORDERED: ACETAMINOPHEN 325 MG TAB PO PRN (16:30)
[2016-08-11] MEDS ORDERED: MISCELLANEOUS NURSING INFORMATION XX SCH (16:30)
[2016-08-11] MEDS ORDERED: CHLORHEXIDINE GLUCONATE 2 % 1 PACK (2 CLOTHS) TOP PRN (16:30)
[2016-08-11] MEDS ORDERED: SODIUM CHLORIDE 0.9% FLUSH 5 ML FLUSH IV FLUSH PRN (16:30)
[2016-08-11] MEDS ORDERED: ONDANSETRON HCL 4 MG/2 ML VIAL IV PRN (16:30)
[2016-08-11] MEDS ORDERED: SENNOSIDES SYRUP 8.8 MG/5 ML CUP G-TUBE PRN (16:30)
[2016-08-11] MEDS ORDERED: GLUCAGON 1 MG/ML VIAL OTHER PRN (16:30)
[2016-08-11] MEDS ORDERED: RESP: ALBUTEROL 2.5 MG/IPRATROPIUM 0.5 MG NEB (PRN) INH (16:30)
--- NOTE | 2016-08-11 16:36 | RADRPT ---
EXAM DATE/TIME: 08/11/2016 15:58 [facility] COMPARISON: CHEST SINGLE AP, August 11, 2016, 12:33. INDICATIONS : Post intubation and central line placement MEDICAL HISTORY : Alzheimer's SURGICAL HISTORY : None. ENCOUNTER: Initial ACUITY: 1 day PAIN SCORE: Non-responsive. LOCATION: Bilateral chest FINDINGS: ET tube, central venous catheter and nasogastric tube are in good position. CONCLUSION: 1. Support apparatus in good position. 2. Increasing consolidative changes left base. Tony Poe MD FACR on August 11, 2016 at 16:15 Board Certified Radiologist. This report was verified electronically.
[2016-08-11] MEDS ORDERED: fentaNYL DRIP 250 ML IV SCH (16:45)
[2016-08-11] MEDS: HEPARIN SODIUM - SQ 10,000 UNITS/ML VIAL SQ SCH (19:18)
[2016-08-11] MEDS: HYDROCORTISONE SOD SUCCINATE 100 MG VIAL IV SCH (19:18)
[2016-08-11] MEDS: LINEZOLID 600 MG PREMIX 300 ML IV SCH (19:18)
[2016-08-11 20:05] LABS: BICARBONATE 20.1 MEQ/L (21.0-32.0); POTASSIUM 4.3 MEQ/L (3.5-5.1)
[2016-08-11 20:23] LABS: CALCIUM-PROTEIN CORRECTED 8.1 MG/DL (8.5-10.1)
[2016-08-11] MEDS: PIPERACIL-TAZO 2.25 GM PREMIX 50 ML IV SCH (20:48)
[2016-08-11] MEDS: CHLORHEXIDINE 0.12% (ORAL KIT) 15 ML CUP MT SCH (20:48)
[2016-08-11] MEDS: DOCUSATE SODIUM 100 MG/10 ML UDC G-TUBE SCH (20:48)
[2016-08-11] MEDS: FAMOTIDINE 20 MG/2 ML VIAL IV PUSH SCH (20:48)
[2016-08-11] MEDS: INSULIN NovoLIN REGULAR SUPPLEMENTAL SCALE SQ SCH (20:49)
[2016-08-11] MEDS: SODIUM CHLORIDE 0.9% FLUSH 5 ML FLUSH IV FLUSH SCH (20:49)
[2016-08-11] MEDS ORDERED: TERBUTALINE INJ 1 MG/ML AMP SQ PRN (22:15)
[2016-08-11] MEDS: NOREPINEPHRINE-DEXTROSE DRIP 250 ML IV SCH (22:29)
--- NOTE | 2016-08-11 22:49 | RADRPT ---
EXAM DATE/TIME: 08/11/2016 21:42 [facility] COMPARISON: CT BRAIN W/O CONTRAST, September 20, 2015, 19:50. INDICATIONS : Altered mental status, severe sepsis. RADIATION DOSE: 69.17 CTDIvol (mGy) MEDICAL HISTORY : Alzheimer's Cardiovascular disease Hypertension. SURGICAL HISTORY : Shunt placement. ENCOUNTER: Subsequent ACUITY: 2 days PAIN SCALE: Non-responsive LOCATION: cranial TECHNIQUE: Multiple contiguous axial images were obtained of the head. Using automated exposure control and adj ustment of the mA and/or kV according to patient size, radiation dose was kept as low as reasonably a chievable to obtain optimal diagnostic quality images. FINDINGS: The appearance of the brain is unchanged compared to the prior study. Generalized atrophy with chronic white matter changes are again noted. There is no evidence of acute infarct, hemorrhage or mass. Right sided ventriculostomy tube is in stable position. Intravenous size appears stable. CONCLUSION: Stable appearance of the brain demonstrating generalized atrophy and chronic white matter changes. No evidence of acute infarct, hemorrhage, mass or enlarging ventricles. Buddy Lafleur MD on August 11, 2016 at 22:46 Board Certified Radiologist. This report was verified electronically.
[2016-08-12] VITALS (18 sets, daily range): BP systolic 82–122; BP diastolic 50–63; PULSE 63–109; RESP 16–22; TEMP 97.5–98.5; O2SAT 94–99
[2016-08-12] MEDS: HYDROCORTISONE SOD SUCCINATE 100 MG VIAL IV SCH ×5 (00:22→23:57)
[2016-08-12] MEDS: SODIUM CHLOR 0.9% 1000 ML INJ 1,000 ML IV SCH ×2 (00:24→05:18)
[2016-08-12] MEDS: CHLORHEXIDINE GLUCONATE 2 % 1 PACK (2 CLOTHS) TOP SCH (02:30)
[2016-08-12 02:41] LABS: BICARBONATE 20.3 MEQ/L (21.0-32.0); POTASSIUM 3.9 MEQ/L (3.5-5.1)
[2016-08-12] MEDS: PIPERACIL-TAZO 2.25 GM PREMIX 50 ML IV SCH ×4 (03:12→20:37)
[2016-08-12] MEDS: INSULIN NovoLIN REGULAR SUPPLEMENTAL SCALE SQ SCH ×5 (03:12→20:37)
[2016-08-12] MEDS: RESP: ALBUTEROL 2.5 MG/IPRATROPIUM 0.5 MG NEB (SCH) INH ×4 (04:01→19:33)
[2016-08-12 04:52] LABS: HEMATOCRIT 37.8 % (39.0-51.0); MEAN CELL VOLUME 90.2 FL (80.0-100.0); MEAN CORPUSCULAR HEMOGLOBIN 30.4 PG (27.0-34.0); MEAN CORPUSCULAR HGB CONC 33.7 % (32.0-36.0); PLATELET COUNT 168 TH/MM3 (150-450); RED BLOOD COUNT 4.19 MIL/MM3 (4.50-5.90); RED CELL DISTRIBUTION WIDTH 14.6 % (11.6-17.2); REVIEW FLAG FINAL; WHITE BLOOD COUNT 16.1 TH/MM3 (4.0-11.0)
[2016-08-12] MEDS: PROPOFOL 1000 MG/100 ML INJ 100 ML IV SCH (05:16)
[2016-08-12] MEDS: HEPARIN SODIUM - SQ 10,000 UNITS/ML VIAL SQ SCH ×2 (05:17→17:37)
[2016-08-12] MEDS: LINEZOLID 600 MG PREMIX 300 ML IV SCH ×2 (05:17→17:37)
--- NOTE | 2016-08-12 06:42 | RADRPT ---
EXAM DATE/TIME: 08/12/2016 04:53 [facility] COMPARISON: CHEST SINGLE AP, August 11, 2016, 15:58. INDICATIONS : Respiratory distress. MEDICAL HISTORY : Alzheimer's. SURGICAL HISTORY : None. ENCOUNTER: Subsequent ACUITY: 2 days PAIN SCORE: Non-responsive. LOCATION: Bilateral chest FINDINGS: Right central line tip is in superior vena cava. Endotracheal tube tip is just above the enio. NG i s seen entering the stomach. There is mild bilateral mostly basilar airspace disease, left greater th an right. CONCLUSION: 1. Support apparatus as above. Endotracheal tube tip just above enio. Mild basilar airspace disease stable to slightly increased from August 11. Efren Gaines MD on August 12, 2016 at 6:39 Board Certified Radiologist. This report was verified electronically.
[2016-08-12] MEDS: CHLORHEXIDINE 0.12% (ORAL KIT) 15 ML CUP MT SCH ×2 (07:31→20:00)
--- NOTE | 2016-08-12 07:50 | HHI.CCPN ---
Subjective Remarks/Hospital Course This gentleman presented to the ED for evaluation of altered mental status . The patient is a 80-year-old male with a PMH of hypertension, dementia and indwelling Root. Patient reported that the patient had progressive altered mental status for several days and she feels is secondary to urinary tract infection, as he has had a previous symptomatology. The patient is noted to have audible wheezing but denies shortness of breath, per EMS his initial oxygen saturation was 89-90% on room air and he was placed on 2 L nasal cannula which brought his saturations to 98%. In the ED the patient was noted to become hypotensive, and had rhythms A. fib with RVR. The patient was intubated , right IJ central line was placed and the patient received IV Cardizem, 15mg and 20 mg. Critical care medicine is consulted for treatment and management. Subjective 08/12: Tmax 100.2. Overnight the patient's became hypotensive systolic blood pressure in the 80s, IV fluids increased patient was placed on Levophed infusion. CT scan was performed for evaluation of ventriculostomy, unremarkable. Urine culture eliminate early resulted Proteus. Objective Vital Signs Date Time Temp Pulse Resp B/P Pulse Ox O2 Delivery O2 Flow Rate FiO2 08/12/16 07:15 97 40 08/12/16 06:00 63 08/12/16 04:00 98.3 16 122/58 08/11/16 17:21 Ventilator 08/11/16 15:12 2 Intake and Output 08/11/16 08/11/16 08/12/16 08:00 16:00 00:00 Intake Total 1001 ml Output Total 1050 ml Balance -49 ml Result Diagram: 08/12/16 0350 08/12/16 0200 Other Results Laboratory Tests Test 08/11/16 14:48 Blood Gas Puncture Site I.V. Blood Gas Patient Temperature 98.6 Venous Blood pH 7.31 (7.360-7.400) Venous Blood Partial Pressure 42 mmHg (44-48) CO2 Venous Blood Partial Pressure 29 mmHg (35-40) O2 Venous Blood HCO3 20 mmol/L (22-26) Venous Blood Oxygen Saturation 47 % (70-76) Venous Blood Oxygen Content 8.4 Vol % (9.0-17.0) Venous Blood Base Excess -5.2 mmol/L (-2-2) Oxygen Delivery Device NASAL CANNULA Blood Gas Liter Flow 2 L/M Imaging Last Impressions Chest X-Ray 08/11/16 1232 Signed Impressions: Service Date/Time: Thursday, August 11, 2016 12:33 - CONCLUSION: Compensated cardiomegaly otherwise negative. Tony Poe MD FACR Objective Remarks GENERAL: Critically ill-appearing male intubated on propofol infusion currently at 29 mcgs, levo fed at 6 mics SKIN: Warm and dry HEAD: Atraumatic. Normocephalic. EYES: Pupils equal and round. No scleral icterus. No injection or drainage. ENT: No nasal bleeding or discharge. Mucous membranes pink and moist. NECK: Trachea midline. No JVD. Orotracheally intubated CARDIOVASCULAR: Irregularly irregular rate and rhythm. RESPIRATORY: Mechanical ventilation. Clear to auscultation. Breath sounds equal bilaterally. GASTROINTESTINAL: Abdomen soft, non-tender, nondistended. No guarding. MUSCULOSKELETAL: Extremities without clubbing, cyanosis, or edema. No obvious deformities. NEUROLOGICAL: RASS -3. Intubated and sedated unable to assess motor function. Root insert reason: Measure Accurate Output Date of Insertion: Aug 11, 2016 Vascular Central Line Catheter: Yes Date of Insertion: Aug 11, 2016 Side: Right Location: Internal, Jugular Reason for Continuation Vasoactive medication administration, CVP monitoring A/P Assessment and Plan Neurologic: Encephalopathy most likely secondary to sepsis Possible metabolic encephalopathy secondary to hyponatremia History of Hydrocephalus FACILITY OPERATIONS MANAGER shunt in situ 07/17 Ventriculomegaly Alzheimer's Dementia Neurochecks per ICU protocol Discontinue propofol infusion for sedation and begin fentanyl infusion CT brain 08/11-right ventriculostomy tube in stable position. No infarct hemorrhage or mass or enlarging ventricles. Continue home medication Donepezil Respiratory: Acute Hypoxic Respiratory Failure Maintain O2 sat greater than 92% Mechanical ventilator setting 500/14/0.50/5 Withdrawal ET tube 1 cm Ventilator bundle Maintain head of bed 30 Duo nebs every 6 hours scheduled, every 2 hours when necessary SBT trials - RSBI 24, NIF -41, FVC 1 liter, TV 300, + cuff leak ABG-7.34/30/132/16/-8.5 Cardiovascular: Atrial fibrillation with RVR-resolved Chronic atrial fibrillation H/O NSTEMI (06/2015) EKG-atrial fib Continue home medications- metoprolol-will resume when clinically indicated, patient is also on lisinopril will hold secondary to JOSE M Heart rate 140's-will begin Cardizem infusion, the heart rate does not improve with adequate hydration and previous dosing in ED of Cardizem Maintain MAP greater than 65mmHg Monitor CVP Renal: JOSE M CKD stage III Urosepsis Dehydration Recurrent UTI Nephrology following BUN 56, creatinine 3.72 Normal saline 150 cc/hour, IVF to be changed to Na HCO3 formulation per Nephrology Follow-up BMP - Strict I/Os FEN/GI: H/O Chronic hyponatremia-resolved Dietary consulted Begin tube feeds today Monitor sodium levels. Na 142 Heme/ID: Septic shock most likely secondary to urosepsis Leukocytosis WBC 13->16.6 today Lactate level 1.4 08/11 ED-Zosyn, Rocephin x 1 dose Zosyn every 6 hours (day 2), and Zyvox(day 2)secondary to indwelling FACILITY OPERATIONS MANAGER shunt catheter 08/11 urine culture-Proteus 08/11 blood culture-pending 08/11 sputum culture-pending Endocrine: Glucose monitoring per ICU protocol Currently on low-dose regimen, will elevate to medium dose regimen Obtain hemoglobin A1c -- SSI Prophylaxis: GI Prophylaxis Pepcid DVT Prophylaxis -- SCDs Heparin 5000 BID Lines: Right IJ central line Dr. Villafana (08/11), peripheral IVs 2 Dispo: This patient remains critically ill with one or more organ systems which are or may become a threat to life. I have spent in excess of 49 minutes discontinuously in the care and management of this patient. This time is exclusive of procedures, and includes, but is not limited to, evaluation of the patient, review of the medical record, discussions with family, consultants, nursing staff, or respiratory therapy, and documentation in the medical record. Physician Bonnie Bautista MD Aug 12, 2016 07:50
[2016-08-12] MEDS ORDERED: fentaNYL DRIP 250 ML IV SCH (08:15)
[2016-08-12] MEDS ORDERED: GLUCAGON 1 MG/ML VIAL OTHER PRN (08:15)
[2016-08-12] MEDS ORDERED: DEXTROSE 50% IN WATER 50 ML VIAL(D50) IV PUSH PRN (08:15)
[2016-08-12] MEDS: DOCUSATE SODIUM 100 MG/10 ML UDC G-TUBE SCH ×2 (08:42→20:41)
[2016-08-12] MEDS: FAMOTIDINE 20 MG/2 ML VIAL IV PUSH SCH ×2 (08:42→20:38)
[2016-08-12] MEDS: SODIUM CHLORIDE 0.9% FLUSH 5 ML FLUSH IV FLUSH SCH ×2 (08:42→20:38)
[2016-08-12] MEDS: NOREPINEPHRINE-DEXTROSE DRIP 250 ML IV SCH (08:44)
[2016-08-12 09:12] LABS: BLOOD GAS BASE EXCESS -8.5 mmol/L (-2-2); BLOOD GAS CARBOXYHEMOGLOBIN 1.1 % (0-4); BLOOD GAS HCO3 16 mmol/L (22-26); BLOOD GAS METHEMOGLOBIN 1.2 % (0-2); BLOOD GAS O2 HGB SATURATION 97 % (90-100); BLOOD GAS OXYGEN CONTENT 18.9 Vol % (12.0-20.0); BLOOD GAS PCO2 30 mmHg (38-42); BLOOD GAS PO2 132 mmHg (61-120); BLOOD GAS TOTAL HGB 13.8 G/DL (12.0-16.0); TEMP CORR TO 98.6
[2016-08-12 09:13] LABS: CRITICAL VALUE YES; OXYGEN DEVICE VENTILATOR; VENT SETTINGS 18/40%/10/5Bipap
[2016-08-12 09:14] LABS: DRAW SITE LT RADIAL; FIO2 40 %; NUMBER OF ARTERIAL PUNCTURES 1; STAT NO; ULNAR PULSE PRESENT
--- NOTE | 2016-08-12 10:16 | PD.CONS ---
HPI Service Nephrology Consult Requested By Reason for Consult Acute Renal Failure Primary Care Physician Non-Staff History of Present Illness This is an 80 y/o male with PMH listed below. He came in for AMS, brought in by family, he has had multiple admissions for the same. Urinalysis on arrival consisted with UTI. He was intubated for airway protection, placed on IVF and antibiotics. He was also hypotensive and placed on Levophed, with lowest documented pressure 97/53. We were consulted for renal management as his Creatinine measured 4.7 on arrival, which has improved to 3.72 with treatment outlined above. 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 He has hx of obstructive uropathy with chronic hydronephrosis, has chronic merrill. He reportedly follows with urology. He was also hyponatremic on arrival that has corrected with fluids. Today he is on CPAP trial on the vent, sedation is on hold and he is awake. He is not demonstrating fluid overload. He is a full code. 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 A fib Past Surgical History GB Appy Left Shoulder R TKR cataract EX[employer] TENDER shunt Reported Medications Per ER documentation Metoprolol Tartrate 25 Mg Tab 12.5 Mg PO BID Diltiazem (Diltiazem HCl) 120 Mg Tab 120 Mg PO DAILY Active Ordered Medications Current Medications Medications (Trade) Dose Ordered Sig/Natalya Route Start Time Stop Time Status Last Admin (NS 1000 ml Inj) 1,000 ml @ 200 mls/hr Q5H IV 08/11/16 16:22 08/12/16 05:18 (NS Flush) 2 ml UNSCH PRN IV FLUSH 08/11/16 16:30 (NS Flush) 2 ml BID IV FLUSH 08/11/16 21:00 08/12/16 08:42 (Tylenol) 650 mg Q6H PRN PO 08/11/16 16:30 08/11/16 20:49 (Pepcid Inj) 10 mg Q12HR IV PUSH 08/11/16 21:00 08/12/16 08:42 (Zofran Inj) 4 mg Q6H PRN IV 08/11/16 16:30 (Colace Liq) 100 mg Q12H G-TUBE 08/11/16 21:00 08/12/16 08:42 (Senna Liq) 17.6 mg Q12H PRN G-TUBE 08/11/16 16:30 (Heparin Inj) 5,000 units Q12H SQ 08/11/16 18:00 08/12/16 05:17 Miscellaneous Information 1 Q361D XX 08/11/16 16:30 08/12/16 02:30 (Chlorhexidine 2% Cloth) 3 pack Taper DAILY@04 TOP 08/12/16 04:00 08/08/17 03:59 08/12/16 02:30 (Chlorhexidine 2% Cloth) 3 pack UNSCH PRN TOP 08/11/16 16:30 Hydrocortisone Sodium Succinate 50 mg 50 mg Q6H IV 08/11/16 18:00 08/12/16 05:17 (Zosyn 2.25 Gm Premix) 50 ml @ 200 mls/hr Q6H IV 08/11/16 21:00 08/12/16 08:42 Chlorhexidine Gluconate 15 ml 15 ml BID@08,20 MT 08/11/16 20:00 08/12/16 07:31 Linezolid 300 ml @ 300 mls/hr Q12H IV 08/11/16 18:00 08/12/16 05:17 Fentanyl Citrate 250 ml @ 0 mls/hr TITRATE IV 08/11/16 16:45 08/12/16 08:43 (Levophed-Dextrose Drip) 250 ml @ 0 mls/hr TITRATE IV 08/11/16 22:15 08/12/16 08:44 (Brethine Inj) 1 mg UNSCH PRN SQ 08/11/16 22:15 Donepezil HCl 5 mg 5 mg HS PO 08/12/16 21:00 (fentaNYL DRIP) 250 ml @ 0 mls/hr TITRATE IV 08/12/16 08:15 (D50w (Vial) Inj) 25 ml UNSCH PRN IV PUSH 08/12/16 08:15 (Glucagon Inj) 1 mg UNSCH PRN OTHER 08/12/16 08:15 Family History Unable to obtain Social History , lives with other information unobtainable he is full code status (Maisha Dwyer) Physical Exam Vital Signs Vital Signs Date Time Temp Pulse Resp B/P Pulse Ox O2 Delivery O2 Flow Rate FiO2 08/12/16 08:30 40 08/12/16 08:12 40 08/12/16 08:00 97.5 71 21 109/53 96 08/12/16 08:00 40 08/12/16 08:00 65 08/12/16 07:15 97 40 08/12/16 06:00 63 08/12/16 04:01 99 40 08/12/16 04:00 40 08/12/16 04:00 72 08/12/16 04:00 98.3 72 16 122/58 99 08/12/16 02:00 69 08/12/16 00:37 98 40 08/12/16 00:00 72 08/12/16 00:00 97.7 72 21 82/50 98 08/12/16 00:00 40 08/11/16 22:00 73 08/11/16 21:33 100 08/11/16 20:00 40 08/11/16 20:00 100.2 93 26 93/52 99 08/11/16 20:00 93 08/11/16 19:47 99 40 08/11/16 18:00 100 100 08/11/16 18:00 100 60 08/11/16 17:51 99 40 08/11/16 17:21 91 16 104/52 99 Ventilator 60 08/11/16 16:15 105 16 114/58 96 Ventilator 60 08/11/16 16:02 96 18 98/52 96 Ventilator 60 08/11/16 15:12 139 32 97/55 98 Nasal Cannula 2 08/11/16 15:12 165 16 152/85 99 Ventilator 08/11/16 15:10 60 08/11/16 13:00 99.0 96 18 127/68 99 Nasal Cannula 2 08/11/16 13:00 99 Nasal Cannula 2.00 08/11/16 12:01 98.3 96 22 110/65 98 Physical Exam Elderly male, on vent, awake and moving all extremities CV: S1/S2, regular rate, no murmurs Lungs; clear in upper barbosa, on CPAP trial Abd: round, soft merrill draining clear urine Ext: no edema, pedal pulses strong Laboratory Laboratory Tests Test 08/11/16 08/11/16 08/11/16 08/11/16 12:10 12:30 14:08 14:48 White Blood Count 14.4 Red Blood Count 4.35 Hemoglobin 13.0 Hematocrit 39.0 Mean Corpuscular Volume 89.7 Mean Corpuscular Hemoglobin 29.9 Mean Corpuscular Hemoglobin 33.3 Concent Red Cell Distribution Width 14.4 Platelet Count 144 Mean Platelet Volume 9.3 Neutrophils (%) (Auto) 90.0 Lymphocytes (%) (Auto) 3.2 Monocytes (%) (Auto) 6.7 Eosinophils (%) (Auto) 0.0 Basophils (%) (Auto) 0.1 Neutrophils # (Auto) 12.9 Lymphocytes # (Auto) 0.5 Monocytes # (Auto) 1.0 Eosinophils # (Auto) 0.0 Basophils # (Auto) 0.0 CBC Comment DIFF FINAL Differential Comment Sodium Level 132 Potassium Level 4.8 Chloride Level 99 Carbon Dioxide Level 22.0 Anion Gap 11 Blood Urea Nitrogen 57 Creatinine 4.72 Estimat Glomerular Filtration 12 Rate Random Glucose 102 Calcium Level 8.6 Total Bilirubin 1.4 Aspartate Amino Transf 22 (AST/SGOT) Alanine Aminotransferase 16 (ALT/SGPT) Alkaline Phosphatase 48 Total Creatine Kinase 346 Creatine Kinase MB 6.0 Creatine Kinase MB % 1.7 Troponin I 0.03 Total Protein 6.7 Albumin 3.1 Urine Color YELLOW Urine Turbidity CLOUDY Urine pH 7.5 Urine Specific [place] 1.015 Urine Protein GREATER THAN 600 Urine Glucose (UA) NEG Urine Ketones NEG Urine Occult Blood SMALL Urine Nitrite NEG Urine Bilirubin NEG Urine Urobilinogen LESS THAN 2.0 Urine Leukocyte Esterase LARGE Urine RBC 376 Urine WBC Urine WBC Clumps MANY Urine Squamous Epithelial Cells Urine Triple Phosphate RARE Crystals Urine Bacteria MANY Urine Yeast (Budding) Microscopic Urinalysis Comment CATH-CULTURE IND Lactic Acid Level 2.2 Blood Gas Puncture Site I.V. Blood Gas Patient Temperature 98.6 Venous Blood pH 7.31 Venous Blood Partial Pressure 42 CO2 Venous Blood Partial Pressure 29 O2 Venous Blood HCO3 20 Venous Blood Oxygen Saturation 47 Venous Blood Oxygen Content 8.4 Venous Blood Base Excess -5.2 Oxygen Delivery Device NASAL CANNULA Blood Gas Liter Flow 2 Test 08/11/16 08/11/16 08/12/16 08/12/16 18:00 18:49 02:00 03:50 Nasal Screen MRSA (PCR) NEGATIVE Sodium Level 135 142 Potassium Level 4.3 3.9 Chloride Level 105 108 Carbon Dioxide Level 20.1 20.3 Anion Gap 10 14 Blood Urea Nitrogen 53 56 Creatinine 4.39 3.72 Estimat Glomerular Filtration 13 16 Rate Random Glucose 175 205 Lactic Acid Level 1.9 1.4 Calcium Level 7.3 8.0 Protein Corrected Calcium 8.1 Ammonia 32 Total Protein 5.6 White Blood Count 16.1 Red Blood Count 4.19 Hemoglobin 12.7 Hematocrit 37.8 Mean Corpuscular Volume 90.2 Mean Corpuscular Hemoglobin 30.4 Mean Corpuscular Hemoglobin 33.7 Concent Red Cell Distribution Width 14.6 Platelet Count 168 Mean Platelet Volume 9.5 Test 08/12/16 09:04 Blood Gas Puncture Site LT RADIAL Blood Gas Patient Temperature 98.6 Blood Gas HCO3 16 Blood Gas Base Excess -8.5 Blood Gas Oxygen Saturation 97 Arterial Blood pH 7.35 Arterial Blood Partial 30 Pressure CO2 Arterial Blood Partial 132 Pressure O2 Arterial Blood Oxygen Content 18.9 Arterial Blood 1.1 Carboxyhemoglobin Arterial Blood Methemoglobin 1.2 Blood Gas Hemoglobin 13.8 Oxygen Delivery Device VENTILATOR Blood Gas Ventilator Setting 18/40%/10/5Bipap Blood Gas Inspired Oxygen 40 Date/Time Procedure Status Source Growth 08/12/16 07:45 Gram Stain Received Sputum Endotracheal Pending 08/12/16 07:45 Sputum Culture Received Sputum Endotracheal Pending 08/11/16 14:05 Aerobic Blood Culture Received Blood Peripheral Pending 08/11/16 14:05 Anaerobic Blood Culture Received Blood Peripheral Pending 08/11/16 12:30 Urine Culture Received Urine Catheterized Urine Pending (Maisha Dwyer) Result Diagram: 08/12/16 0350 08/12/16 0200 Imaging Last 72 hours Impressions Chest X-Ray 08/12/16 0600 Signed Impressions: Service Date/Time: Friday, August 12, 2016 04:53 - CONCLUSION: 1. Support apparatus as above. Endotracheal tube tip just above enio. Mild basilar airspace disease stable to slightly increased from August 11. Efren Gaines MD Chest X-Ray 08/11/16 1232 Signed Impressions: Service Date/Time: Thursday, August 11, 2016 12:33 - CONCLUSION: Compensated cardiomegaly otherwise negative. Tony Poe MD FACR Head CT 08/11/16 0000 Signed Impressions: Service Date/Time: Thursday, August 11, 2016 21:42 - CONCLUSION: Stable appearance of the brain demonstrating generalized atrophy and chronic white matter changes. No evidence of acute infarct, hemorrhage, mass or enlarging ventricles. Buddy Lafleur MD Chest X-Ray 08/11/16 0000 Signed Impressions: Service Date/Time: Thursday, August 11, 2016 15:58 - CONCLUSION: 1. Support apparatus in good position. 2. Increasing consolidative changes left base. Tony Poe MD FACR (Maisha Dwyer) Assessment and Plan Problem List: (1) Acute renal failure Plan: In a pt with Hx CKD 2-3, also obstructive uropathy with chronic merrill non oliguric renal failure JOSE M likely prerenal from decreased renal perfusion due to sepsis, hypotension; also may have been dehydrated his renal function has improved since admission potassium is acceptable he does have non anion gap acidosis he is on 0.9% NS @ 200 cc/hr, change IVF to 1/4NS with 2 amps bicarb and decrease rate to 75 cc/hr pressors to maintain MAP >65 mmHg, currently being titrated off quantify proteinuria avoid nephrotoxins renal panel in am (2) Hyponatremia Plan: hypovolemic correcting with 0.9% NS, change to 1/4 NS with bicarb (3) Septic shock due to urinary tract infection Plan: Lactic acid trended down he is on Zosyn and Zyvoxx, the catheter was changed since admission urine and blood cultures in process continue pressor support, vent support (4) Encephalopathy Plan: due to sepsis, continue supportive care (Maisha Dwyer) Assessment and Plan patient was seen and examined. JOSE M likely due to pre-renal azotemia, but may have progressed to ATN. Also, change of Merrill resulted in 1600 ml of urine. Therefore urinary retention was playing a role as well. Continue supportive care. No need for dialysis. Avoid nephrotoxic agents. (Ez Bolivar MD) Maisha Dwyer Aug 12, 2016 10:16 Ez Bolivar MD Aug 12, 2016 16:24
[2016-08-12 11:01] LABS: BICARBONATE 20.1 MEQ/L (21.0-32.0); POTASSIUM 3.2 MEQ/L (3.5-5.1)
[2016-08-12] MEDS: SODIUM CHLORIDE 23.4% INJ 38.5 MEQ, SODIUM BICARBONATE 8.4% INJ 100 MEQ in WATER STERIL... IV SCH (13:11)
[2016-08-12 14:58] LABS: BICARBONATE 24.1 MEQ/L (21.0-32.0); MAGNESIUM 2.3 MG/DL (1.5-2.5); POTASSIUM 3.3 MEQ/L (3.5-5.1)
--- NOTE | 2016-08-12 16:25 | EKG ---
Date Performed: 08/11/2016 Time Performed: 14:53:32 PTAGE: 80 years EKG: ATRIAL FIBRILLATION WITH RAPID VENTRICULAR RESPONSE MARKED LEFT AXIS DEVIATION RIGHT BUNDLE BRANCH BLOCK Atrial fibrillation is new since prior tracing. Clinical correlation is recommended ABN ORMAL ECG PREVIOUS TRACING : 10/25/2015 19.48 DOCTOR: Chet Ray Interpretating Date/Time 08/12/2016 16:24:39
[2016-08-12 17:53] LABS: HEMOGLOBIN A1a 0.8 %; HEMOGLOBIN A1b 1.9 %; HEMOGLOBIN Ao 84.9 %; HEMOGLOBIN LA1C 2.7 %; HEMOGLOBIN P3 4.1 %
[2016-08-12] MEDS: DONEPEZIL HCL 5 MG TAB PO SCH (20:36)
[2016-08-13] VITALS (14 sets, daily range): BP systolic 109–128; BP diastolic 55–70; PULSE 79–125; RESP 16–24; TEMP 97.7–98.8; O2SAT 95–98
[2016-08-13] MEDS: CHLORHEXIDINE GLUCONATE 2 % 1 PACK (2 CLOTHS) TOP SCH (02:00)
[2016-08-13] MEDS: PIPERACIL-TAZO 2.25 GM PREMIX 50 ML IV SCH ×2 (03:33→08:23)
[2016-08-13] MEDS: RESP: ALBUTEROL 2.5 MG/IPRATROPIUM 0.5 MG NEB (SCH) INH ×4 (03:44→20:05)
[2016-08-13] MEDS: HEPARIN SODIUM - SQ 10,000 UNITS/ML VIAL SQ SCH ×2 (05:19→17:49)
[2016-08-13] MEDS: HYDROCORTISONE SOD SUCCINATE 100 MG VIAL IV SCH ×4 (05:19→23:15)
[2016-08-13] MEDS: LINEZOLID 600 MG PREMIX 300 ML IV SCH (05:19)
[2016-08-13 05:34] LABS: BICARBONATE 24.6 MEQ/L (21.0-32.0); MAGNESIUM 2.4 MG/DL (1.5-2.5); POTASSIUM 3.2 MEQ/L (3.5-5.1)
[2016-08-13] MEDS: INSULIN NovoLIN REGULAR SUPPLEMENTAL SCALE SQ SCH ×4 (05:53→21:00)
--- NOTE | 2016-08-13 06:38 | RADRPT ---
EXAM DATE/TIME: 08/13/2016 04:49 [facility] COMPARISON: CHEST SINGLE AP, August 12, 2016, 4:53. INDICATIONS : Respiratory failure. MEDICAL HISTORY : None. SURGICAL HISTORY : None. ENCOUNTER: Subsequent ACUITY: 3 days PAIN SCORE: Non-responsive. LOCATION: Bilateral chest FINDINGS: Shunt tubing projects over the right chest. There is mild basilar airspace disease and small left ple ural effusion. No pneumothorax. Heart size enlarged. Patient has been extubated. CONCLUSION: 1. Mild basilar airspace disease slightly improved from August 12. Small left effusion. Efren Gaines MD on August 13, 2016 at 6:35 Board Certified Radiologist. This report was verified electronically.
[2016-08-13] MEDS: SODIUM CHLORIDE 23.4% INJ 38.5 MEQ, SODIUM BICARBONATE 8.4% INJ 100 MEQ in WATER STERIL... IV SCH (07:00)
[2016-08-13] MEDS: CHLORHEXIDINE 0.12% (ORAL KIT) 15 ML CUP MT SCH ×2 (08:00→20:00)
[2016-08-13] MEDS: DOCUSATE SODIUM 100 MG/10 ML UDC G-TUBE SCH ×2 (08:22→20:35)
[2016-08-13] MEDS: SODIUM CHLORIDE 0.9% FLUSH 5 ML FLUSH IV FLUSH SCH ×2 (08:23→20:35)
[2016-08-13] MEDS: FAMOTIDINE 20 MG/2 ML VIAL IV PUSH SCH ×2 (08:23→20:34)
[2016-08-13] MEDS ORDERED: SODIUM CHLOR 0.45% 1000 ML INJ 1,000 ML IV SCH (09:15)
[2016-08-13] MEDS ORDERED: POTASSIUM CL 40 MEQ/30 ML LIQ UDC PO ONE (09:15)
--- NOTE | 2016-08-13 10:13 | EKG ---
Date Performed: 08/12/2016 Time Performed: 22:48:56 PTAGE: 80 years EKG: Sinus tachycardia with sinus arrhythmia with aberrantly conducted supraventricular complexe s with PVC(s). Leftward axis Right bundle branch block Lateral ST-T changes suggest myocardial injury /ischemia Abnormal ECG NO PREVIOUS TRACING DOCTOR: Isaac Gilliam Interpretating Date/Time 08/13/2016 10:11:08
--- NOTE | 2016-08-13 12:58 | HHI.NPPN ---
Subjective Renal Failure: Chronic, Acute Interval History He was extubated, now awake and in no distress. Renal function is better. ( Maisha Dwyer) Review of Systems General Constitutional: Fatigue (Maisha Dwyer) Objective Data Data 08/12/16 08/13/16 19:00 07:00 Intake Total 1748 ml 1770 ml Output Total 1350 ml 1175 ml Balance 398 ml 595 ml Intake Oral 480 ml 360 ml IV Total 1268 ml 1410 ml Output Urine Total 1350 ml 1175 ml # Bowel Movements 0 Vital Signs Date Time Temp Pulse Resp B/P Pulse Ox O2 Delivery O2 Flow Rate FiO2 08/13/16 10:00 79 08/13/16 09:40 98 Nasal Cannula 1.00 08/13/16 08:00 97.7 80 23 113/65 98 08/13/16 08:00 80 08/13/16 07:00 98 Nasal Cannula 2.00 08/13/16 06:00 84 08/13/16 04:00 97.8 89 16 110/55 96 08/13/16 04:00 89 08/13/16 02:00 101 08/13/16 02:00 Nasal Cannula 2.00 08/13/16 00:00 98.8 98 22 119/56 97 08/13/16 00:00 98 08/12/16 22:00 107 08/12/16 20:00 99 Room Air 08/12/16 20:00 107 08/12/16 20:00 98.5 107 22 117/63 94 08/12/16 19:33 95 21 08/12/16 18:00 107 08/12/16 16:00 109 08/12/16 16:00 97.9 103 22 107/60 97 08/12/16 14:00 89 (Maisha Dwyer) -: 08/12/16 0350 08/13/16 0407 Imaging Last 72 hours Impressions Chest X-Ray 08/13/16 06 Signed Impressions: Service Date/Time: Saturday, August 13, 2016 04:49 - CONCLUSION: 1. Mild basilar airspace disease slightly improved from August 12. Small left effusion. Efren Gaines MD Chest X-Ray 08/12/16 0600 Signed Impressions: Service Date/Time: Friday, August 12, 2016 04:53 - CONCLUSION: 1. Support apparatus as above. Endotracheal tube tip just above enio. Mild basilar airspace disease stable to slightly increased from August 11. Efren Gaines MD Chest X-Ray 08/11/16 1232 Signed Impressions: Service Date/Time: Thursday, August 11, 2016 12:33 - CONCLUSION: Compensated cardiomegaly otherwise negative. Tony Poe MD FACR Head CT 08/11/16 0000 Signed Impressions: Service Date/Time: Thursday, August 11, 2016 21:42 - CONCLUSION: Stable appearance of the brain demonstrating generalized atrophy and chronic white matter changes. No evidence of acute infarct, hemorrhage, mass or enlarging ventricles. Buddy Lafleur MD Chest X-Ray 08/11/16 0000 Signed Impressions: Service Date/Time: Thursday, August 11, 2016 15:58 - CONCLUSION: 1. Support apparatus in good position. 2. Increasing consolidative changes left base. Tony Poe MD FACR Tubes & Lines: Merrill (Maisha Dwyer B. BLIND EYELETTER) Physical Exam General Appearance: Well Developed, Well Nourished, No Acute Distress (ReymundoMaisha B. BLIND EYELETTER) Throat Throat Exam: Oral Mucosa [place] & Moist (ReymundoMaisha B. BLIND EYELETTER) Pulmonary Resp Exam: Clear Bilaterally, Breath Sounds Equal, No Distress (Reymundo Maisha B. BLIND EYELETTER) Cardiology CV Exam: Regular, Normal Sinus Rhythm (ReymundoMaisha B. BLIND EYELETTER) Gastrointestinal/Abdomen GI Exam: Soft, Non-Tender (ReymundoMaisha B. BLIND EYELETTER) Genitourinary Exam: Clear Urine (ReymundoMaisha B. BLIND EYELETTER) Musculoskeletal MS Exam: Joints Intact, Normal Tone (ReymundoMaisha B. BLIND EYELETTER) Integumentary Skin Exam: Warm, Dry (ReymundoMaisha B. BLIND EYELETTER) Extremeties Extremities Exam: Pedal Pulses Palpable, Trace Edema (ReymundoMaisha B. BLIND EYELETTER) Neurologic Neuro Exam: Awake, Oriented, Speech Clear, Moving All Extremities (Reymundo Maisha B. BLIND EYELETTER) Psychiatric Psych Exam: Appropriate Responses (Maisha Dwyer B. BLIND EYELETTER) Assessment/Plan Discussed Condition With: Patient Assessment Summary: JOSE M/Acute Renal Failure, Proteinuria Problem List: (1) Acute renal failure Plan: In a pt with Hx CKD 2-3, who has a 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 non oliguric renal failure JOSE M multifactorial: prerenal (due to sepsis, hypotension), also had obstructive uropathy this admission merrill was changed his renal function has improved , good urine output potassium was replaced acidosis corrected edema forming, tolerating PO, stop IVF protein quantification ordered avoid nephrotoxins renal panel in am (2) Hyponatremia Plan: hypovolemic corrected with IVF, monitor (3) Septic shock due to urinary tract infection Plan: resolving, due to GNR in urine he is on Zosyn and Zyvoxx, blood cultures negative to date merrill was changed (4) Encephalopathy Plan: due to sepsis, continue supportive care (Maisha Dwyer) Plan patient was seen and examined. Agree with above assessment and plan. (Ez Bolivar MD) Maisha Dwyer Aug 13, 2016 12:58 Ez Bolivar MD Aug 14, 2016 10:48
--- NOTE | 2016-08-13 15:20 | HHI.PR ---
Subjective Remarks Follow up for UTI, sepsis, Afib. Mr. Mathew is doing well. Currently on room air. No acute concerns. Denies any fever, chills. and sister at bedside. Objective Vitals Vital Signs Date Time Temp Pulse Resp B/P Pulse Ox O2 Delivery O2 Flow Rate FiO2 08/13/16 12:00 98.4 81 21 115/56 95 08/13/16 12:00 81 08/13/16 10:00 79 08/13/16 09:40 98 Nasal Cannula 1.00 08/13/16 08:00 97.7 80 23 113/65 98 08/13/16 08:00 80 08/13/16 07:00 98 Nasal Cannula 2.00 08/13/16 06:00 84 08/13/16 04:00 97.8 89 16 110/55 96 08/13/16 04:00 89 08/13/16 02:00 101 08/13/16 02:00 Nasal Cannula 2.00 08/13/16 00:00 98.8 98 22 119/56 97 08/13/16 00:00 98 08/12/16 22:00 107 08/12/16 20:00 99 Room Air 08/12/16 20:00 107 08/12/16 20:00 98.5 107 22 117/63 94 08/12/16 19:33 95 21 08/12/16 18:00 107 08/12/16 16:00 109 08/12/16 16:00 97.9 103 22 107/60 97 I/O 08/12/16 08/12/16 08/12/16 08/13/16 08/13/16 08/13/16 07:00 15:00 23:00 07:00 15:00 23:00 Intake Total 1614 ml 1508 ml 1185 ml 825 ml Output Total 1925 ml 1350 ml 550 ml 625 ml Balance -311 ml 158 ml 635 ml 200 ml Intake Oral 240 ml 360 ml 240 ml IV Total 1554 ml 1268 ml 825 ml 585 ml Tube Feeding 0 ml Other 60 ml Output Urine Total 1925 ml 1350 ml 550 ml 625 ml # Bowel Movements 0 0 0 Result Diagram: 08/12/16 0350 08/13/16 0407 Imaging Last Impressions Chest X-Ray 08/13/16 0600 Signed Impressions: Service Date/Time: Saturday, August 13, 2016 04:49 - CONCLUSION: 1. Mild basilar airspace disease slightly improved from August 12. Small left effusion. Efren Gaines MD Head CT 08/11/16 0000 Signed Impressions: Service Date/Time: Thursday, August 11, 2016 21:42 - CONCLUSION: Stable appearance of the brain demonstrating generalized atrophy and chronic white matter changes. No evidence of acute infarct, hemorrhage, mass or enlarging ventricles. Buddy Lafleur MD Objective Remarks GENERAL: Alert, oriented x 3, NAD. SKIN: Warm and dry. HEAD: Normocephalic. EYES: No scleral icterus. No injection or drainage. NECK: Supple, trachea midline. No JVD or lymphadenopathy. CARDIOVASCULAR: Regular rate and rhythm without murmurs, gallops, or rubs. RESPIRATORY: Breath sounds equal bilaterally. No accessory muscle use. GASTROINTESTINAL: Abdomen soft, non-tender, nondistended. MUSCULOSKELETAL: No cyanosis, or edema. BACK: Nontender without obvious deformity. No CVA tenderness. Procedures None. Date of Insertion: Aug 11, 2016 Date of Insertion: Aug 11, 2016 Side: Right Location: Internal, Jugular A/P Problem List: (1) Septic shock due to urinary tract infection ICD Code: N39.0 Status: Acute (2) UTI (urinary tract infection) ICD Code: N39.0 Status: Acute (3) Afib ICD Code: I48.91 Status: Acute (4) Acute kidney injury ICD Code: N17.9 Status: Acute (5) CKD (chronic kidney disease) stage 3, GFR 30-59 ml/min ICD Code: N18.3 Status: Acute Assessment and Plan Mr. Mathew is a pleasant 80 year old male with a history of HTN, dementia, indwelling catheter who was admitted to the ICU on 08/11/2016 due to altered mental status, hypotension, Afib with RVR. Patient was intubated on the day of admission and extubated on 08/12/2016. He received broad spectrum abx. He required Levophed for hypotension. Urine cx is positive for proteus mirabilis, pansensitive. - Septic shock due to UTI - Urinary tract infection due to Proteus Mirabilis. - Switch Zosyn to Ceftriaxone 1g Qday. D/C Linezolid. - Acute hypoxic respiratory failure - s/p extubation. Currently not requiring any supplemental O2. - Supp O2 to keep sat > 90%. - May need 1-2 L for now. Continue DuoNeb. Incentive spirometry. - Atrial fibrillation - Currently rate controlled. If necessary, we will consider BB or CCB. - Acute kidney injury - Creatinine 4.72 ---> 2.71. - Probable CKD stage III - Nephrology following. - Generalized deconditioning - Continue PT. We will consider discharge to SNF in 1-2 days. Full code. Heparin SQ. Problem Qualifiers (1) UTI (urinary tract infection): Qualified Code: T83.511A - Urinary tract infection associated with indwelling urethral catheter, initial encounter Eliseo Guevara DO Aug 13, 2016 3:20 pm
[2016-08-13] MEDS: cefTRIAXone INJ 1,000 MG in SODIUM CHLORIDE 0.9% INJ 100 ML IV SCH (15:43)
[2016-08-13] MEDS: DONEPEZIL HCL 5 MG TAB PO SCH (20:35)
[2016-08-14] VITALS (9 sets, daily range): BP systolic 117–159; BP diastolic 68–88; PULSE 81–109; RESP 17–23; TEMP 98.1–98.8; O2SAT 94–98
[2016-08-14] MEDS: CHLORHEXIDINE GLUCONATE 2 % 1 PACK (2 CLOTHS) TOP SCH (04:00)
[2016-08-14] MEDS: RESP: ALBUTEROL 2.5 MG/IPRATROPIUM 0.5 MG NEB (SCH) INH ×4 (04:00→20:41)
[2016-08-14] MEDS: HEPARIN SODIUM - SQ 10,000 UNITS/ML VIAL SQ SCH ×2 (06:04→17:19)
[2016-08-14] MEDS: INSULIN NovoLIN REGULAR SUPPLEMENTAL SCALE SQ SCH ×4 (06:04→20:36)
[2016-08-14] MEDS: HYDROCORTISONE SOD SUCCINATE 100 MG VIAL IV SCH ×4 (06:04→23:36)
[2016-08-14] MEDS: CHLORHEXIDINE 0.12% (ORAL KIT) 15 ML CUP MT SCH ×2 (08:00→20:00)
[2016-08-14] MEDS: FAMOTIDINE 20 MG/2 ML VIAL IV PUSH SCH ×2 (08:53→20:34)
[2016-08-14] MEDS: DOCUSATE SODIUM 100 MG/10 ML UDC G-TUBE SCH ×2 (08:53→20:36)
[2016-08-14] MEDS: SODIUM CHLORIDE 0.9% FLUSH 5 ML FLUSH IV FLUSH SCH ×2 (08:54→20:34)
--- NOTE | 2016-08-14 09:25 | HHI.NPPN ---
Subjective Renal Failure: Chronic, Acute Interval History Sitting up in bed, awake/alert. He did have some vomiting yesterday evening that has subsided. Renal panel in process. (Maisha Dwyer) Review of Systems General Constitutional: Fatigue (Maisha Dwyer) Objective Data Data 08/13/16 08/14/16 19:00 07:00 Intake Total 1033 ml 490 ml Output Total 850 ml 1050 ml Balance 183 ml -560 ml Intake Oral 150 ml 290 ml IV Total 883 ml 200 ml Output Urine Total 850 ml 1050 ml # Bowel Movements 0 Vital Signs Date Time Temp Pulse Resp B/P Pulse Ox O2 Delivery O2 Flow Rate FiO2 08/14/16 04:00 98.3 100 19 123/75 96 08/14/16 04:00 100 08/14/16 00:00 100 08/14/16 00:00 98.1 100 23 126/82 98 08/13/16 22:00 103 08/13/16 20:05 97 Nasal Cannula 1.00 08/13/16 20:00 98.2 114 22 128/70 95 08/13/16 20:00 114 08/13/16 19:00 94 Room Air 08/13/16 18:00 125 08/13/16 16:00 98.6 81 24 109/56 96 08/13/16 16:00 103 08/13/16 14:00 106 08/13/16 12:00 98.4 81 21 115/56 95 08/13/16 12:00 81 08/13/16 10:00 79 08/13/16 09:40 98 Nasal Cannula 1.00 (Maisha Dwyer) -: 08/12/16 0350 08/13/16 0407 Tubes & Lines: Merrill (Maisha Dwyer) Physical Exam General Appearance: Well Developed, Well Nourished, No Acute Distress (Maisha Dwyer) Throat Throat Exam: Oral Mucosa [place] & Moist (Maisha Dwyer) Pulmonary Resp Exam: Clear Bilaterally, Breath Sounds Equal, No Distress (Maisha Dwyer) Cardiology CV Exam: Regular, Normal Sinus Rhythm (Maisha Dwyer) Gastrointestinal/Abdomen GI Exam: Soft, Non-Tender, Bowel Sounds Present (Maisha Dwyer) Genitourinary Exam: Clear Urine (Maisha Dwyer) Musculoskeletal MS Exam: Joints Intact, Normal Tone (Maisha Dwyer) Integumentary Skin Exam: Warm, Dry (Maisha Dwyer) Extremeties Extremities Exam: Pedal Pulses Palpable, Trace Edema (Maisha Dwyer) Neurologic Neuro Exam: Alert, Awake, Oriented, Speech Clear, Moving All Extremities ( Maisha Dwyer) Psychiatric Psych Exam: Appropriate Responses (Maisha Dwyer) Assessment/Plan Discussed Condition With: Patient Assessment Summary: JOSE M/Acute Renal Failure, Proteinuria Problem List: (1) Acute renal failure Plan: In a pt with Hx CKD 2-3, who has a 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 non oliguric renal failure JOSE M multifactorial: prerenal (due to sepsis, hypotension), also had obstructive uropathy this admission merrill was changed his renal function has improved since admission with good urine output, today's labs in process recheck potassium, it was replaced tolerating oral fluids, off IVF avoid nephrotoxins daily renal panel (2) Hyponatremia Plan: hypovolemic corrected with IVF, monitor (3) Septic shock due to urinary tract infection Plan: resolving, due to GNR (proteus) in urine Abx changed to Rocephin blood cultures negative to date merrill was changed (4) Encephalopathy Plan: due to sepsis, continue supportive care (Maisha Dwyer) Plan patient was seen and examined. His renal function has improved. Has developed mild hypernatremia. He was advised to drink water. (Ez Bolivar MD) Maisha Dwyer Aug 14, 2016 09:25 Ez Bolivar MD Aug 14, 2016 12:25
[2016-08-14 10:56] LABS: BICARBONATE 26.6 MEQ/L (21.0-32.0); POTASSIUM 3.7 MEQ/L (3.5-5.1)
[2016-08-14] MEDS ORDERED: POTASSIUM CHLORIDE 10 MEQ CAP PO SCH (11:00)
[2016-08-14] MEDS ORDERED: CIPR250T2 PO (13:21)
--- NOTE | 2016-08-14 13:29 | HHI.DS ---
Discharge Summary Admission Date Aug 11, 2016 at 3:21 pm Discharge Date: Aug 15, 2016 Admitting Diagnosis severe sepsis secondary to UTI, acute renal failure, respiratory dis (1) Septic shock due to urinary tract infection ICD Code: N39.0 Diagnosis: Principal (2) UTI (urinary tract infection) ICD Code: N39.0 Diagnosis: Principal (3) Afib ICD Code: I48.91 (4) Acute kidney injury ICD Code: N17.9 Diagnosis: Principal (5) CKD (chronic kidney disease) stage 3, GFR 30-59 ml/min ICD Code: N18.3 Procedures None. Brief History - From Admission This gentleman presented to the ED for evaluation of altered mental status . The patient is a 80-year-old male with a PMH of hypertension, dementia and indwelling Root. Patient reported that the patient had progressive altered mental status for several days and she feels is secondary to urinary tract infection, as he has had a previous symptomatology. The patient is noted to have audible wheezing but denies shortness of breath, per EMS his initial oxygen saturation was 89-90% on room air and he was placed on 2 L nasal cannula which brought his saturations to 98%. In the ED the patient was noted to become hypotensive, and had rhythms A. fib with RVR. The patient was intubated , right IJ central line was placed and the patient received IV Cardizem, 15mg and 20 mg. Critical care medicine is consulted for treatment and management. PFSH Past Medical History Alzheimer's Disease: Yes ("beginning stages" ) Arthritis: Yes (right knee- limps) Autoimmune Disease: No Heart Rhythm Problems: No Cancer: No Cardiovascular Problems: Yes High Cholesterol: No Chest Pain: No Congestive Heart Failure: No Diminished Hearing: Yes (right side hearing aids) Endocrine: No Gastrointestinal Disorders: No Genitourinary: No Hypertension: Yes Immune Disorder: No Inguinal Hernia: Yes Implanted Vascular Access Dvce: No Musculoskeletal: Yes Neurologic: No Psychiatric: No Reproductive: No Respiratory: No Tetanus Vaccination: Unknown PNEUMOCCOCAL Vaccine (Year): 1 Past Surgical History Abdominal Surgery: Yes (gall bladder, appendectomy) Appendectomy: Yes Cardiac Surgery: No Ear Surgery: No Endocrine Surgery: No Eye Surgery: Yes (cataract removal) Genitourinary Surgery: No Gynecologic Surgery: No Joint Replacement: Yes (L shoulder and R knee) Neurologic Surgery: Yes Oral Surgery: No Thoracic Surgery: No Other Surgery: Yes Social History Alcohol Use: Yes (Occassional) Tobacco Use: No Substance Use: No Allergies-Medications (Allergen,Severity, Reaction): Coded Allergies: Sulfa (Verified Allergy, Severe, Hives, 08/11/16) Reported Meds & Prescriptions Reported Meds & Active Scripts Active Reported Metoprolol Tartrate 25 Mg Tab 12.5 Mg PO BID Diltiazem (Diltiazem HCl) 120 Mg Tab 120 Mg PO DAILY Review of Systems ROS Limitations: Poor Historian (dementia) Except as stated in HPI: all other systems reviewed are Neg CBC/BMP: 08/12/16 0350 08/14/16 0950 Significant Findings Laboratory Tests Test 08/11/16 08/11/16 08/11/16 08/12/16 14:08 14:48 18:49 02:00 Lactic Acid Level 2.2 mmol/L (0.4-2.0) Venous Blood pH 7.31 (7.360-7.400) Venous Blood Partial Pressure 42 mmHg (44-48) CO2 Venous Blood Partial Pressure 29 mmHg (35-40) O2 Venous Blood HCO3 20 mmol/L (22-26) Venous Blood Oxygen Saturation 47 % (70-76) Venous Blood Oxygen Content 8.4 Vol % (9.0-17.0) Venous Blood Base Excess -5.2 mmol/L (-2-2) Sodium Level 135 MEQ/L (136-145) Carbon Dioxide Level 20.1 MEQ/L 20.3 MEQ/L (21.0-32.0) (21.0-32.0) Blood Urea Nitrogen 53 MG/DL (7-18) 56 MG/DL (7-18) Creatinine 4.39 MG/DL 3.72 MG/DL (0.60-1.30) (0.60-1.30) Estimat Glomerular Filtration 13 ML/MIN (>89) 16 ML/MIN (>89) Rate Random Glucose 175 MG/DL 205 MG/DL (74-106) (74-106) Calcium Level 7.3 MG/DL 8.0 MG/DL (8.5-10.1) (8.5-10.1) Protein Corrected Calcium 8.1 MG/DL (8.5-10.1) Total Protein 5.6 GM/DL (6.4-8.2) Chloride Level 108 MEQ/L (98-107) Test 08/12/16 08/12/16 08/12/16 08/12/16 03:50 09:00 09:04 13:20 White Blood Count 16.1 TH/MM3 (4.0-11.0) Red Blood Count 4.19 MIL/MM3 (4.50-5.90) Hemoglobin 12.7 GM/DL (13.0-17.0) Hematocrit 37.8 % (39.0-51.0) Potassium Level 3.2 MEQ/L 3.3 MEQ/L (3.5-5.1) (3.5-5.1) Chloride Level 110 MEQ/L 113 MEQ/L (98-107) (98-107) Carbon Dioxide Level 20.1 MEQ/L (21.0-32.0) Blood Urea Nitrogen 48 MG/DL (7-18) 45 MG/DL (7-18) Creatinine 3.44 MG/DL 3.20 MG/DL (0.60-1.30) (0.60-1.30) Estimat Glomerular Filtration 17 ML/MIN (>89) 19 ML/MIN (>89) Rate Random Glucose 218 MG/DL 111 MG/DL (74-106) (74-106) Calcium Level 8.4 MG/DL 8.0 MG/DL (8.5-10.1) (8.5-10.1) Blood Gas HCO3 16 mmol/L (22-26) Blood Gas Base Excess -8.5 mmol/L (-2-2) Arterial Blood pH 7.35 (7.380-7.420) Arterial Blood Partial 30 mmHg (38-42) Pressure CO2 Arterial Blood Partial 132 mmHg Pressure O2 (61-120) Phosphorus Level 2.1 MG/DL (2.5-4.9) Test 08/13/16 08/14/16 04:07 09:50 Potassium Level 3.2 MEQ/L (3.5-5.1) Chloride Level 109 MEQ/L 110 MEQ/L (98-107) (98-107) Blood Urea Nitrogen 43 MG/DL (7-18) 35 MG/DL (7-18) Creatinine 2.71 MG/DL 2.17 MG/DL (0.60-1.30) (0.60-1.30) Estimat Glomerular Filtration 23 ML/MIN (>89) 29 ML/MIN (>89) Rate Random Glucose 159 MG/DL 109 MG/DL (74-106) (74-106) Calcium Level 8.0 MG/DL 8.3 MG/DL (8.5-10.1) (8.5-10.1) Albumin 2.6 GM/DL (3.4-5.0) Imaging Last Impressions Chest X-Ray 08/13/16 0600 Signed Impressions: Service Date/Time: Saturday, August 13, 2016 04:49 - CONCLUSION: 1. Mild basilar airspace disease slightly improved from August 12. Small left effusion. Efren Gaines MD Head CT 08/11/16 0000 Signed Impressions: Service Date/Time: Thursday, August 11, 2016 21:42 - CONCLUSION: Stable appearance of the brain demonstrating generalized atrophy and chronic white matter changes. No evidence of acute infarct, hemorrhage, mass or enlarging ventricles. Buddy Lafelur MD PE at Discharge GENERAL: Alert, oriented x 3, NAD. SKIN: Warm and dry. HEAD: Normocephalic. EYES: No scleral icterus. No injection or drainage. NECK: Supple, trachea midline. No JVD or lymphadenopathy. CARDIOVASCULAR: Regular rate and rhythm without murmurs, gallops, or rubs. RESPIRATORY: Breath sounds equal bilaterally. No accessory muscle use. GASTROINTESTINAL: Abdomen soft, non-tender, nondistended. MUSCULOSKELETAL: No cyanosis, or edema. BACK: Nontender without obvious deformity. No CVA tenderness. Pt update on day of discharge Mr. Mathew is doing well. No acute concerns. Denies any fever, chills. Had a BM today. Stool is not dark or loose. Hospital Course Mr. Mathew is a pleasant 80 year old male with a history of HTN, dementia, indwelling catheter who was admitted to the ICU on 08/11/2016 due to altered mental status, hypotension, Afib with RVR. Patient was intubated on the day of admission and extubated on 08/12/2016. He received broad spectrum abx. He required Levophed for hypotension. Urine cx is positive for proteus mirabilis, pansensitive. - Septic shock due to UTI - Urinary tract infection due to Proteus Mirabilis. - Switched Zosyn to Ceftriaxone 1g Qday. Cipro on discharge. - Acute hypoxic respiratory failure - s/p extubation. Currently not requiring any supplemental O2. - Supplemental O2 to keep sat > 90%. - Continue DuoNeb. Incentive spirometry. - Atrial fibrillation - Currently rate controlled. If necessary, we will consider BB or CCB. - Hypertension - Hydrocortisone discontinued. Will start patient on Amlodipine 2.5mg Qday for BP. - Acute kidney injury - Creatinine 4.72 ---> 2.71 --> 1.99. - Hypokalemia - corrected. - Probable CKD stage III - Nephrology followed this patient. Discharge to SNF today. Pt Condition on Discharge: Good Discharge Disposition: Disch w/ Home Health Serv Discharge Time: > 30 minutes Discharge Instructions DIET: Follow Instructions for: Heart Healthy Diet Activities you can perform: Regular-No Restrictions Follow up Referrals: PCP Follow-up - 1 Week New Medications: Ciprofloxacin (Ciprofloxacin) 250 Mg Tab 250 MG PO Q18H Infection #4 Ref 0 TAB Amlodipine (Norvasc) 5 Mg Tab 2.5 MG PO DAILY Blood Pressure Management #30 TAB Continued Medications: Donepezil (Donepezil) 5 Mg Tab 5 MG PO HS Dementia #30 Ref 0 TAB Discontinued Medications: Lisinopril (Lisinopril) 2.5 Mg Tab 2.5 MG PO DAILY #30 Ref 0 TAB Metoprolol Tartrate (Metoprolol Tartrate) 25 Mg Tab 25 MG PO BID #60 Ref 0 TAB Eliseo Guevara DO Aug 14, 2016 1:29 pm
--- NOTE | 2016-08-14 13:35 | HHI.FF ---
Face to Face Verification Diagnosis: (1) Sepsis (2) Acute renal failure (3) Septic shock due to urinary tract infection Physical Therapy Order: Evaluate and Treat, Improve ambulation, Strength and gait training Home Health Nursing Order: Signs/symptoms of disease process Nursing assessment with vital signs Root catheter maintenance I have seen patient Mikal Mathew on 08/14/16. My clinical findings support the need for the requested home health care services because: Patient has SOB Need for psychosocial assistance Impaired cognition/judgement Infection w/ risk of complications I certify that my clinical findings support that this patient is homebound because: Unsafe to leave home unassisted Need for psychosocial assistance Unable to use public transportation Eliseo Guevara DO Aug 14, 2016 1:35 pm
[2016-08-14] MEDS: cefTRIAXone INJ 1,000 MG in SODIUM CHLORIDE 0.9% INJ 100 ML IV SCH (14:38)
--- NOTE | 2016-08-14 16:52 | HHI.PR ---
Subjective Remarks Follow up for UTI, sepsis, Afib. Mr. Ceron is doing well. Currently on room air. Denies any chest pain, SOB, fever, chills. Objective Vitals Vital Signs Date Time Temp Pulse Resp B/P Pulse Ox O2 Delivery O2 Flow Rate FiO2 08/14/16 12:00 96 08/14/16 12:00 93 08/14/16 09:42 94 Nasal Cannula 3.00 08/14/16 08:00 81 08/14/16 08:00 98.4 93 19 117/69 97 08/14/16 07:00 Room Air 08/14/16 07:00 98.1 96 20 132/68 98 08/14/16 07:00 96 08/14/16 04:00 98.3 100 19 123/75 96 08/14/16 04:00 100 08/14/16 00:00 100 08/14/16 00:00 98.1 100 23 126/82 98 08/13/16 22:00 103 08/13/16 20:05 97 Nasal Cannula 1.00 08/13/16 20:00 98.2 114 22 128/70 95 08/13/16 20:00 114 08/13/16 19:00 94 Room Air 08/13/16 18:00 125 I/O 08/13/16 08/13/16 08/13/16 08/14/16 08/14/16 08/14/16 07:00 15:00 23:00 07:00 15:00 23:00 Intake Total 825 ml 1033 ml 395 ml 95 ml 495 ml Output Total 625 ml 850 ml 500 ml 550 ml 950 ml Balance 200 ml 183 ml -105 ml -455 ml -455 ml Intake Oral 240 ml 150 ml 240 ml 50 ml 450 ml IV Total 585 ml 883 ml 155 ml 45 ml 45 ml Output Urine Total 625 ml 850 ml 500 ml 550 ml 950 ml # Bowel Movements 0 0 0 Result Diagram: 08/12/16 0350 08/14/16 0950 Imaging Last Impressions Chest X-Ray 08/13/16 0600 Signed Impressions: Service Date/Time: Saturday, August 13, 2016 04:49 - CONCLUSION: 1. Mild basilar airspace disease slightly improved from August 12. Small left effusion. Efren Gaines MD Head CT 08/11/16 0000 Signed Impressions: Service Date/Time: Thursday, August 11, 2016 21:42 - CONCLUSION: Stable appearance of the brain demonstrating generalized atrophy and chronic white matter changes. No evidence of acute infarct, hemorrhage, mass or enlarging ventricles. Buddy Lafleur MD Objective Remarks GENERAL: Alert, oriented x 3, NAD. SKIN: Warm and dry. HEAD: Normocephalic. EYES: No scleral icterus. No injection or drainage. NECK: Supple, trachea midline. No JVD or lymphadenopathy. CARDIOVASCULAR: Regular rate and rhythm without murmurs, gallops, or rubs. RESPIRATORY: Breath sounds equal bilaterally. No accessory muscle use. GASTROINTESTINAL: Abdomen soft, non-tender, nondistended. MUSCULOSKELETAL: No cyanosis, or edema. BACK: Nontender without obvious deformity. No CVA tenderness. Procedures None. Date of Insertion: Aug 11, 2016 Date of Insertion: Aug 11, 2016 Side: Right Location: Internal, Jugular A/P Problem List: (1) Septic shock due to urinary tract infection ICD Code: N39.0 Status: Acute (2) UTI (urinary tract infection) ICD Code: N39.0 Status: Acute (3) Afib ICD Code: I48.91 Status: Acute (4) Acute kidney injury ICD Code: N17.9 Status: Acute (5) CKD (chronic kidney disease) stage 3, GFR 30-59 ml/min ICD Code: N18.3 Status: Acute Assessment and Plan Mr. Mathew is a pleasant 80 year old male with a history of HTN, dementia, indwelling catheter who was admitted to the ICU on 08/11/2016 due to altered mental status, hypotension, Afib with RVR. Patient was intubated on the day of admission and extubated on 08/12/2016. He received broad spectrum abx. He required Levophed for hypotension. Urine cx is positive for proteus mirabilis, pansensitive. - Septic shock due to UTI - Urinary tract infection due to Proteus Mirabilis. - Switched Zosyn to Ceftriaxone 1g Qday. - Acute hypoxic respiratory failure - s/p extubation. Currently not requiring any supplemental O2. - Supplemental O2 to keep sat > 90%. - Continue DuoNeb. Incentive spirometry. - Atrial fibrillation - Currently rate controlled. If necessary, we will consider BB or CCB. - Acute kidney injury - Creatinine 4.72 ---> 2.71. - Hypokalemia - corrected. - Probable CKD stage III - Nephrology following. - Generalized deconditioning - Will refer patient to [facility] to see if he would qualify for [facility]. - Can be transferred to the floor. Full code. Heparin SQ. Problem Qualifiers (1) UTI (urinary tract infection): Qualified Code: T83.511A - Urinary tract infection associated with indwelling urethral catheter, initial encounter Eliseo Guevara DO Aug 14, 2016 4:52 pm
[2016-08-14] MEDS: DONEPEZIL HCL 5 MG TAB PO SCH (20:35)
[2016-08-15] VITALS (7 sets, daily range): BP systolic 131–179; BP diastolic 80–96; PULSE 81–99; RESP 16–20; TEMP 98.3–98.7; O2SAT 92–95
[2016-08-15] MEDS: RESP: ALBUTEROL 2.5 MG/IPRATROPIUM 0.5 MG NEB (SCH) INH ×3 (03:56→15:19)
[2016-08-15] MEDS: CHLORHEXIDINE GLUCONATE 2 % 1 PACK (2 CLOTHS) TOP SCH (04:00)
[2016-08-15] MEDS ORDERED: PANTOPRAZOLE SODIUM 40 MG VIAL IV PUSH SCH (05:00)
[2016-08-15] MEDS: HYDROCORTISONE SOD SUCCINATE 100 MG VIAL IV SCH (05:02)
[2016-08-15] MEDS: HEPARIN SODIUM - SQ 10,000 UNITS/ML VIAL SQ SCH (05:03)
[2016-08-15 06:32] LABS: HEMATOCRIT 37.7 % (39.0-51.0); REVIEW FLAG FINAL
[2016-08-15 06:33] LABS: BICARBONATE 25.6 MEQ/L (21.0-32.0); POTASSIUM 3.7 MEQ/L (3.5-5.1)
[2016-08-15] MEDS: INSULIN NovoLIN REGULAR SUPPLEMENTAL SCALE SQ SCH ×2 (06:34→11:00)
[2016-08-15] MEDS: CHLORHEXIDINE 0.12% (ORAL KIT) 15 ML CUP MT SCH (08:00)
[2016-08-15] MEDS ORDERED: PILL SPLITTER OTHER PRN (08:00)
[2016-08-15] MEDS: DOCUSATE SODIUM 100 MG/10 ML UDC G-TUBE SCH (08:26)
[2016-08-15] MEDS: FAMOTIDINE 20 MG/2 ML VIAL IV PUSH SCH (08:27)
[2016-08-15] MEDS: SODIUM CHLORIDE 0.9% FLUSH 5 ML FLUSH IV FLUSH SCH (08:27)
[2016-08-15] MEDS ORDERED: amLODIPine BESYLATE 5 MG TAB PO SCH (09:00)
--- NOTE | 2016-08-15 09:57 | HHI.NPPN ---
Subjective Renal Failure: Chronic, Acute Interval History Renal function is better. Sitting up eating/drinking. Slight hypernatremia. ( Maisha Dwyer) Review of Systems General Constitutional: Fatigue (Maisha Dwyer) Objective Data Data 08/14/16 08/15/16 19:00 07:00 Intake Total 495 ml 536 ml Output Total 950 ml 1160 ml Balance -455 ml -624 ml Intake Oral 450 ml 360 ml IV Total 45 ml 176 ml Output Urine Total 950 ml 1150 ml Emesis 10 ml # Bowel Movements 2 Vital Signs Date Time Temp Pulse Resp B/P Pulse Ox O2 Delivery O2 Flow Rate FiO2 08/15/16 08:00 98.7 95 16 179/84 95 08/15/16 07:00 Room Air 08/15/16 04:10 93 Nasal Cannula 2.00 08/15/16 04:00 98.7 99 18 160/80 93 08/15/16 04:00 99 08/15/16 00:00 98.3 98 20 163/96 93 08/15/16 00:00 98 08/14/16 20:41 95 21 08/14/16 20:00 109 08/14/16 20:00 98.8 109 20 159/88 95 08/14/16 19:00 95 Room Air 08/14/16 16:00 98.2 96 17 144/70 94 08/14/16 16:00 87 08/14/16 12:00 96 08/14/16 12:00 93 (Maisha Dwyer) -: 08/15/16 0603 08/15/16 0533 Tubes & Lines: Merrill (Maisha Dwyer) Physical Exam General Appearance: Well Developed, Well Nourished, No Acute Distress, Comfortable ( Maisha Dwyer) Throat Throat Exam: Oral Mucosa Olivia Lopez De Gutierrez & Moist (Maisha Dwyer) Pulmonary Resp Exam: Clear Bilaterally, Breath Sounds Equal, No Distress (Maisha Dwyer) Cardiology CV Exam: Regular, Normal Sinus Rhythm (Maisha Dwyer) Gastrointestinal/Abdomen GI Exam: Soft, Non-Tender, Bowel Sounds Present (Maisha Dwyer) Genitourinary Exam: Clear Urine (Maisha Dwyer) Musculoskeletal MS Exam: Joints Intact, Normal Tone (Maisha Dwyer) Integumentary Skin Exam: Warm, Dry (Maisha Dwyer) Extremeties Extremities Exam: Pedal Pulses Palpable, Trace Edema (Maisha Dwyer) Neurologic Neuro Exam: Alert, Awake, Oriented, Speech Clear, Moving All Extremities ( Maisha Dwyer) Psychiatric Psych Exam: Appropriate Responses (Maisha Dwyer) Assessment/Plan Discussed Condition With: Patient Assessment Summary: JOSE M/Acute Renal Failure, Proteinuria Problem List: (1) Acute renal failure Plan: In a pt with Hx CKD 2-3, who has a 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 non oliguric renal failure JOSE M resolving, renal function is better merrill was changed K was replaced tolerating oral fluids, now hypernatremic, encouraged more water intake; start 1/4 NS if it does not improve avoid nephrotoxins daily renal panel (2) Hyponatremia Plan: initially corrected with IVF now hypernatremic see above (3) Septic shock due to urinary tract infection Plan: resolving, due to GNR (proteus) in urine Abx: Rocephin blood cultures negative to date merrill was changed (4) Encephalopathy Plan: due to sepsis, continue supportive care (Maisha Dwyer) Problem List: (1) Acute renal failure Plan: In a pt with Hx CKD 2-3, who has a 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 Renal function has improved. Start D5W for management of hypernatremia. (Ez Bolivar MD) Maisha Dwyer Aug 15, 2016 09:57 Ez Bolivar MD Aug 15, 2016 15:21
[2016-08-15 10:36] LABS: HEMATOCRIT 37.8 % (39.0-51.0); REVIEW FLAG FINAL
[2016-08-15 12:41] LABS: HEMATOCRIT 38.4 % (39.0-51.0); REVIEW FLAG FINAL
--- NOTE | 2016-08-15 13:05 | PD.CONS ---
HPI History of Present Illness This is a 80 year old male with PMH of hypertension, A-fib, CKD, dementia and chronic indwelling Merrill who is here for evaluation of AMS, and was found to have urosepsis. Gi have been consulted for GI bleed. Patient is sitting up in chair, eating lunch, denies nausea, vomiting, abdomen pain, change in bowels, hematochezia or melena. He is suppose to go to rehab today. He has slight drop in hgb from 13---> 12.9. He never had EGD/colonoscopy, no family history of colon cancer. 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 A fib Past Surgical History GB Appy Left Shoulder R TKR cataract TELEGRAPH OPERATOR shunt (Tera Michel) Coded Allergies: Sulfa (Verified Allergy, Severe, Hives, 08/11/16) Medications Current Medications Medications (Trade) Dose Ordered Sig/Natalya Route Start Time Stop Time Status Last Admin (NS Flush) 2 ml UNSCH PRN IV FLUSH 08/11/16 16:30 (NS Flush) 2 ml BID IV FLUSH 08/11/16 21:00 08/15/16 08:27 (Tylenol) 650 mg Q6H PRN PO 08/11/16 16:30 08/11/16 20:49 (Pepcid Inj) 10 mg Q12HR IV PUSH 08/11/16 21:00 08/15/16 08:27 (Zofran Inj) 4 mg Q6H PRN IV 08/11/16 16:30 08/13/16 23:15 (Colace Liq) 100 mg Q12H G-TUBE 08/11/16 21:00 08/15/16 08:26 (Senna Liq) 17.6 mg Q12H PRN G-TUBE 08/11/16 16:30 (Heparin Inj) 5,000 units Q12H SQ 08/11/16 18:00 08/14/16 17:19 Miscellaneous Information 1 Q361D XX 08/11/16 16:30 08/12/16 02:30 (Chlorhexidine 2% Cloth) 3 pack Taper DAILY@04 TOP 08/12/16 04:00 08/08/17 03:59 08/15/16 04:00 (Chlorhexidine 2% Cloth) 3 pack UNSCH PRN TOP 08/11/16 16:30 Chlorhexidine Gluconate 15 ml 15 ml BID@08,20 MT 08/11/16 20:00 08/14/16 20:00 (Levophed-Dextrose Drip) 250 ml @ 0 mls/hr TITRATE IV 08/11/16 22:15 08/12/16 08:44 (Brethine Inj) 1 mg UNSCH PRN SQ 08/11/16 22:15 Donepezil HCl 5 mg 5 mg HS PO 08/12/16 21:00 08/14/16 20:35 (fentaNYL DRIP) 250 ml @ 0 mls/hr TITRATE IV 08/12/16 08:15 (D50w (Vial) Inj) 25 ml UNSCH PRN IV PUSH 08/12/16 08:15 Glucagon 1 mg 1 mg UNSCH PRN OTHER 08/12/16 08:15 (Rocephin Inj/NS Inj) 100 ml @ 200 mls/hr Q24H IV 08/13/16 15:00 08/14/16 14:38 (Protonix Inj) 40 mg Q12H IV PUSH 08/15/16 05:00 08/15/16 04:55 (Norvasc) 2.5 mg DAILY PO 08/15/16 09:00 08/15/16 08:26 (Pill Splitter) 1 ea UNSCH PRN OTHER 08/15/16 08:00 (Apresoline) 25 mg Q8HR PO 08/15/16 14:00 Family History No family hx of colon cancer Social History No alcohol No smoking (Tera Michel) Review of Systems Constitutional: DENIES: Fever, Chills Endocrine: DENIES: Polyuria Eyes: DENIES: Double Vision Ears, nose, mouth, throat: DENIES: Hoarseness Respiratory: DENIES: Shortness of breath Cardiovascular: DENIES: Syncope Gastrointestinal: DENIES: Abdominal pain, Black stools, Constipation, Diarrhea , Nausea, Vomiting, Anorexia, Odynophagia, Swelling of Abdomen, Heartburn, Hematemesis Genitourinary: DENIES: Hematuria Musculoskeletal: DENIES: Neck pain Integumentary: DENIES: Jaundice Hematologic/lymphatic: DENIES: Bruising Immunologic/allergic: DENIES: Eczema Neurologic: DENIES: Abnormal gait Psychiatric: DENIES: Anxiety (Tera Michel) GI Exam Vitals I&O Vital Signs Date Time Temp Pulse Resp B/P Pulse Ox O2 Delivery O2 Flow Rate FiO2 08/15/16 12:00 98.6 86 18 131/81 92 08/15/16 12:00 81 08/15/16 11:31 94 Nasal Cannula 2.00 08/15/16 08:00 98 08/15/16 08:00 98.7 95 16 179/84 95 08/15/16 07:00 Room Air 08/15/16 04:10 93 Nasal Cannula 2.00 08/15/16 04:00 98.7 99 18 160/80 93 08/15/16 04:00 99 08/15/16 00:00 98.3 98 20 163/96 93 08/15/16 00:00 98 08/14/16 20:41 95 21 08/14/16 20:00 109 08/14/16 20:00 98.8 109 20 159/88 95 08/14/16 19:00 95 Room Air 08/14/16 16:00 98.2 96 17 144/70 94 08/14/16 16:00 87 I/O 08/14/16 08/14/16 08/14/16 08/15/16 08/15/16 08/15/16 07:00 15:00 23:00 07:00 15:00 23:00 Intake Total 95 ml 495 ml 376 ml 160 ml Output Total 550 ml 950 ml 550 ml 610 ml Balance -455 ml -455 ml -174 ml -450 ml Intake Oral 50 ml 450 ml 240 ml 120 ml IV Total 45 ml 45 ml 136 ml 40 ml Output Urine Total 550 ml 950 ml 550 ml 600 ml Emesis 10 ml # Bowel Movements 0 0 2 Imaging Last Impressions Chest X-Ray 08/13/16 0600 Signed Impressions: Service Date/Time: Saturday, August 13, 2016 04:49 - CONCLUSION: 1. Mild basilar airspace disease slightly improved from August 12. Small left effusion. Efren Gaines MD Head CT 08/11/16 0000 Signed Impressions: Service Date/Time: Thursday, August 11, 2016 21:42 - CONCLUSION: Stable appearance of the brain demonstrating generalized atrophy and chronic white matter changes. No evidence of acute infarct, hemorrhage, mass or enlarging ventricles. Buddy Lafleur MD Laboratory Test 08/15/16 08/15/16 08/15/16 08/15/16 05:33 06:03 09:55 12:22 Sodium Level 147 MEQ/L Potassium Level 3.7 MEQ/L Chloride Level 111 MEQ/L Carbon Dioxide Level 25.6 MEQ/L Anion Gap 10 MEQ/L Blood Urea Nitrogen 40 MG/DL Creatinine 1.99 MG/DL Estimat Glomerular Filtration 32 ML/MIN Rate Random Glucose 106 MG/DL Calcium Level 8.5 MG/DL Phosphorus Level 2.8 MG/DL Albumin 2.7 GM/DL Hemoglobin 12.7 GM/DL 12.7 GM/DL 12.9 GM/DL Hematocrit 37.7 % 37.8 % 38.4 % Date/Time Procedure Status Source Growth 08/12/16 07:45 Gram Stain - Final Complete Sputum Endotracheal 08/12/16 07:45 Sputum Culture - Final Complete Sputum Endotracheal MODERATE GROWTH NORMAL RESPIRATORY MITZI 08/11/16 14:05 Aerobic Blood Culture - Preliminary Resulted Blood Peripheral NO GROWTH IN 4 DAYS 08/11/16 14:05 Anaerobic Blood Culture - Preliminary Resulted Blood Peripheral NO GROWTH IN 4 DAYS 08/11/16 12:30 Urine Culture - Final Complete Urine Catheterized Urine Proteus Mirabilis Escherichia Coli Physical Examination HEENT:normocephalic; atraumatic; no jaundice. Throat is clear. NECK: Neck is supple, no JVD, no lymphadenopathy. CHEST: Chest is clear to auscultation and percussion. CARDIAC: Regular rate and rhythm with no murmur gallop or rubs. ABDOMEN: Soft, nondistended, nontender; umbilical hernia, bowel sounds are present in all four quadrants. EXTREMITIES: No clubbing, cyanosis, or edema. SKIN: Normal; no rash; no jaundice. HOTEL SECURITY OFFICER: No focal deficits; alert and oriented times three. (Tera Michel) Assessment and Plan Plan - Gi bleed/anemia- Gi have been consulted for GI bleed. Patient is sitting up in chair, eating lunch, denies nausea, vomiting, abdomen pain, change in bowels , hematochezia or melena. He is suppose to go to rehab today. He has slight drop in hgb from 13---> 12.9. He never had EGD/colonoscopy, no family history of colon cancer. - AMS/urosepsis- resolved, going to rehab soon - CKD, nephrology on the case - hypertension, A-fib, CKD, dementia and chronic indwelling Merrill per attending Plan: - ROSELYN - No signs of bleeding, will avoid any endoscopy unless actively bleeding - Okay to dc to rehab - Monitor hh - Supportive care - Patient seen and examined by dr. Urbina and myself and this note is written on his behalf. (Tera Michel) Physician Comments patient seen and examined, agree with above, continue present supportive care ( Alberto Urbina MD) Tera Michel Aug 15, 2016 13:05 Alberto Urbina MD Aug 15, 2016 21:52
[2016-08-15] MEDS ORDERED: AMLO5 PO (13:09)
[2016-08-15] MEDS ORDERED: hydrALAZINE HCL 25 MG TAB PO SCH (14:00)
[2016-08-15] MEDS: cefTRIAXone INJ 1,000 MG in SODIUM CHLORIDE 0.9% INJ 100 ML IV SCH (14:56)
[2016-08-15] MEDS ORDERED: DEXTROSE 5% IN WATE 1000ML INJ 1,000 ML IV SCH (15:30)
[2016-08-15 16:53] LABS: REVIEW FLAG FINAL
--- NOTE | 2016-08-25 10:28 | PQ ---
Physician Query Response Document PATIENT: XAVI MENEZES : 1935 ADMIT DATE: 08/11/2016 3:21 PM DISCH DATE: 08/15/2016 4:55 PM RESPONDING PROVIDER #: tom QUERY TEXT: Cause and Effect Relationship Please clarify in documentation the relationship, if any, between UTI and INDWELLING URINARY C ATHETER Such as: -- Conditions are due to or associated -- Unrelated to each other -- Other, please specify The patient's Clinical Indicators include: PATIENT PRESENTED WITH AND INDWELLING URINARY CATHETER PER H Recurrent UTI Urine culture eliminate early resulted Proteus Query created by: Carissa Mckinney on 08/12/2016 12:05 PM RESPONSE TEXT: The indwelling catheter is cause for recurrent UTI and Sepsis. Electronically signed by: Bonnie Lagunas MD 08/25/2016 10:24 AM
== END 2016-08-15 16:55 | DRG 698 ==
LOC: NEPE 11:56 → NEDH 15:21 → HIMW 17:45
PROVIDERS: ADMIT Hospitalist; ATTEND Hospitalist
PROC: 0BH17EZ Insertion of Endotracheal Airway into Trachea, Via Natural or Artificial Opening (ICD-10-PCS; principal; 2016-08-11)
PROC: 5A1935Z Respiratory Ventilation, Less than 24 Consecutive Hours (ICD-10-PCS; 2016-08-11)
PROC: 02HV33Z Insertion of Infusion Device into Superior Vena Cava, Percutaneous Approach (ICD-10-PCS; 2016-08-11)
DX: T83.518A Infection and inflammatory reaction due to other urinary catheter, initial encounter (principal); A41.9 Sepsis, unspecified organism; J96.01 Acute respiratory failure with hypoxia; R65.21 Severe sepsis with septic shock; G93.41 Metabolic encephalopathy; N17.9 Acute kidney failure, unspecified; E87.0 Hyperosmolality and hypernatremia; N18.3 Chronic kidney disease, stage 3 (moderate); E87.1 Hypo-osmolality and hyponatremia; N13.30 Unspecified hydronephrosis; E86.0 Dehydration; I48.2 Chronic atrial fibrillation; I12.9 Hypertensive chronic kidney disease with stage 1 through stage 4 chronic kidney disease, or unspecified chronic kidney disease; G30.0 Alzheimer's disease with early onset; F02.80 Dementia in other diseases classified elsewhere, unspecified severity, without behavioral disturbance, psychotic disturbance, mood disturbance, and anxiety; G93.89 Other specified disorders of brain; B96.4 Proteus (mirabilis) (morganii) as the cause of diseases classified elsewhere; E87.6 Hypokalemia; N13.9 Obstructive and reflux uropathy, unspecified; I25.10 Atherosclerotic heart disease of native coronary artery without angina pectoris; Z98.2 Presence of cerebrospinal fluid drainage device; I25.2 Old myocardial infarction
CPT/HCPCS: 31500; 36556; 36600; 51702; 70450; 71010; 80048; 80053; 80069; 81001; 82140; 82550; 82552; 82805; 82948; 83036; 83605; 83615; 83735; 84100; 84155; 84450; 84484; 85014; 85018; 85025; 85027; 87040; 87070; 87077; 87086; 87186; 87205; 87641; 93005; 94002; 94003; 94150; 94640; 94664; 96374; 96375; C9113; J0696; J1644; J1720; J2020; J2405; J2543; J2930; J3010; J7030

== ENCOUNTER 2016-10-12 19:20 | Inpatient (IN) | payer MEDICARE ==
[2016-10-12] VITALS (7 sets, daily range): BP systolic 85–110; BP diastolic 43–57; PULSE 87–99; RESP 24–31; TEMP 99.6–102.3; O2SAT 94–98
[~2016-10-12] VITALS: Ht 172.7 cm; Wt 78.6 kg
[~2016-10-12 19:20] MED LIST changes: +AMLO5 PO; +CIPR250T2 PO; -DILT120T PO; +DONE5TAB7 PO; -METO25TA3 PO
[2016-10-12] MEDS ORDERED: SODIUM CHLORIDE 0.9% FLUSH 10 ML FLUSH IVF PRN (20:00)
--- NOTE | 2016-10-12 20:00 | PD ---
HPI Chief Complaint: General Weakness Time Seen by Provider: 19:39 Travel History International Travel<30 days: No Contact w/Intl Traveler<30days: No History of Present Illness HPI 80yo M with PMH of HTN, dementia, indwelling merrill catheter presents to the ED with c/o more confusion in the last few days as well as generalized weakness and thick, yellow urine today. As per , pt usually knows the president and where he is but does not today. Pt usually walks with walker but could not get off couch today. Pt is AAOx1 now and saturating at 96%. Denies any fever, chest pain, sob, n/v, abdominal pain. Pt was here for septic shock secondary to UTI from 08/11-08/15/16. PFSH Past Medical History Alzheimer's Disease: Yes ("beginning stages" ) Arthritis: Yes (right knee- limps) Autoimmune Disease: No Heart Rhythm Problems: No Cancer: No Cardiovascular Problems: Yes High Cholesterol: No Chest Pain: No Congestive Heart Failure: No Diminished Hearing: Yes (right side hearing aids) Endocrine: No Gastrointestinal Disorders: No Genitourinary: No Hypertension: Yes Immune Disorder: No Inguinal Hernia: Yes Implanted Vascular Access Dvce: No Musculoskeletal: Yes Neurologic: No Psychiatric: No Reproductive: No Respiratory: No PNEUMOCCOCAL Vaccine (Year): 1 Past Surgical History Abdominal Surgery: Yes (gall bladder, appendectomy) Appendectomy: Yes Cardiac Surgery: No Ear Surgery: No Endocrine Surgery: No Eye Surgery: Yes (cataract removal) Genitourinary Surgery: No Gynecologic Surgery: No Joint Replacement: Yes (L shoulder and R knee) Neurologic Surgery: Yes Oral Surgery: No Thoracic Surgery: No Other Surgery: Yes Social History Alcohol Use: Yes (Occassional) Tobacco Use: No Substance Use: No Allergies-Medications (Allergen,Severity, Reaction): Coded Allergies: Sulfa (Verified Allergy, Severe, Hives, 10/12/16) Reported Meds & Prescriptions Reported Meds & Active Scripts Active Reported Lisinopril 2.5 Mg Tab Unknown Dose PO DAILY Diltiazem (Diltiazem HCl) 30 Mg Tab Unknown Dose PO DAILY Metoprolol Tartrate 25 Mg Tab Unknown Dose PO DAILY Famotidine 10 Mg Tab Unknown Dose PO BID Donepezil 5 Mg Tab 5 Mg PO HS Review of Systems Except as stated in HPI: all other systems reviewed are Neg Physical Exam Narrative GENERAL: 80yo M not in distress. SKIN: Focused skin assessment warm/dry. HEAD: Atraumatic. Normocephalic. EYES: Pupils equal and round at 3mm bilaterally. No scleral icterus. No injection or drainage. ENT: No nasal bleeding or discharge. Mucous membranes pink and moist. NECK: Trachea midline. No JVD. CARDIOVASCULAR: Regular rate and rhythm. No murmur appreciated. RESPIRATORY: + accessory muscle use. Clear to auscultation. Breath sounds equal bilaterally. GASTROINTESTINAL: Abdomen soft, mildly distended. Umbilical hernia reducible. No tenderness on exam. No rebound tenderness or guarding. MUSCULOSKELETAL: No obvious deformities. No clubbing. No cyanosis. +Bilateral lower ext edema. NEUROLOGICAL: Awake and alert. AAOx1. Muscle strength is 3/5 in lower ext. Sensation intact. Data Data Last Documented VS Vital Signs Date Time Temp Pulse Resp B/P Pulse Ox O2 Delivery O2 Flow Rate FiO2 10/12/16 21:45 102.3 99 31 101/47 96 Nasal Cannula 2 Orders Electrocardiogram (10/12/16 19:51) Basic Metabolic Panel (Bmp) (10/12/16 19:51) Complete Blood Count With Diff (10/12/16 19:51) Creatine Kinase (Cpk) (10/12/16 19:51) Prothrombin Time / Inr (Pt) (10/12/16 19:51) Act Partial Throm Time (Ptt) (10/12/16 19:51) Troponin I (10/12/16 19:51) Thyroid Stimulating Hormone (10/12/16 19:51) Lactic Acid Sepsis Protocol (10/12/16 19:51) Urinalysis - C+S If Indicated (10/12/16 19:51) Blood Culture (10/12/16 19:51) Chest, Single Ap (10/12/16 19:51) Ct Brain W/O Iv Contrast(Rout) (10/12/16 19:51) Blood Glucose (10/12/16 19:51) Ecg Monitoring (10/12/16 19:51) Iv Access Insert/Monitor (10/12/16 19:51) Oximetry (10/12/16 19:51) Sodium Chloride 0.9% Flush (Ns Flush) (10/12/16 20:00) Ceftriaxone Inj (Rocephin Inj) (10/12/16 21:30) Sodium Chlor 0.9% 1000 Ml Inj (Ns 1000 M (10/12/16 21:30) Consult Nephrology (10/12/16 ) Admit Order (Ed Use Only) (10/12/16 21:52) Sodium Chlor 0.9% 1000 Ml Inj (Ns 1000 M (10/12/16 22:00) Labs Laboratory Tests Test 10/12/16 10/12/16 20:25 21:15 White Blood Count 12.1 TH/MM3 Red Blood Count 4.29 MIL/MM3 Hemoglobin 12.5 GM/DL Hematocrit 37.9 % Mean Corpuscular Volume 88.4 FL Mean Corpuscular Hemoglobin 29.1 PG Mean Corpuscular Hemoglobin 32.9 % Concent Red Cell Distribution Width 14.2 % Platelet Count 223 TH/MM3 Mean Platelet Volume 7.9 FL Neutrophils (%) (Auto) 95.5 % Lymphocytes (%) (Auto) 1.7 % Monocytes (%) (Auto) 2.1 % Eosinophils (%) (Auto) 0.1 % Basophils (%) (Auto) 0.6 % Neutrophils # (Auto) 11.5 TH/MM3 Lymphocytes # (Auto) 0.2 TH/MM3 Monocytes # (Auto) 0.3 TH/MM3 Eosinophils # (Auto) 0.0 TH/MM3 Basophils # (Auto) 0.1 TH/MM3 CBC Comment DIFF FINAL Differential Comment Prothrombin Time 11.1 SEC Prothromb Time International 1.0 RATIO Ratio Activated Partial 29.3 SEC Thromboplast Time Sodium Level 138 MEQ/L Potassium Level 3.5 MEQ/L Chloride Level 101 MEQ/L Carbon Dioxide Level 21.7 MEQ/L Anion Gap 15 MEQ/L Blood Urea Nitrogen 76 MG/DL Creatinine 7.60 MG/DL Estimat Glomerular Filtration 7 ML/MIN Rate Random Glucose 107 MG/DL Lactic Acid Level 1.1 mmol/L Calcium Level 8.3 MG/DL Total Creatine Kinase 34 U/L Troponin I 0.02 NG/ML Thyroid Stimulating Hormone 1.550 uIU/ML 3rd Gen Urine Collection Type CATH Urine Color YELLOW Urine Turbidity MOD Urine pH 7.5 Urine Specific [place] 1.013 Urine Protein 100 mg/dL Urine Glucose (UA) NEG mg/dL Urine Ketones NEG mg/dL Urine Occult Blood MOD Urine Nitrite NEG Urine Bilirubin NEG Urine Leukocyte Esterase MOD Urine WBC INNUM /hpf Urine WBC Clumps MANY Urine Squamous Epithelial 0-5 /hpf Cells Urine Bacteria MANY /hpf Microscopic Urinalysis Comment CATH-CULTURE IND MDM Medical Decision Making Medical Screen Exam Complete: Yes Emergency Medical Condition: Yes Interpretation(s) EKG: NSR 89bpm. LAD. Incomplete RBBB. Differential Diagnosis AMS secondary to urosepsis vs. CVA vs. electrolyte abnormality vs. dehydration Narrative Course 80yo M with confusion and very cloudy, thick urine in merrill bag. Pt has dementia and is AAOx1 but states he has been more confused in last 2 days. Labs reviewed, mild leukocytosis at 12.1. Lactic acid 1.1. TSH normal. Troponin negative. K: 3.5. BUN/creatinine is markedly elevated at 76/7.60 compare to 40/1.99 on 08/15/16. UA showed moderate blood. Moderate leukocyte and innumerable WBC. Pt had urine culture that grew proteus and Ecoli in July that was bedoya sensitive. Pt given ceftriaxone 1gm IV. As per nurse, when we changed the merrill catheter, 1000 cc of urine came out. Pt may have had urinary retention although states it was flowing. CXR showed tiny left pleural effusion. CT brain showed slight atrophic and small vessel ischemic changes without any evidence for acute hemorrhage or mass effect. Pt admitted for acute on chronic kidney injury secondary to UTI and likely obstruction. Pt given IVF NS x2. Repeat temp showed fever of 102.3 and acetaminophen 650mg supp was given. Discussed with Dr. Sanchez and accepted to his service. Critical Care Narrative Aggregate critical care time was 40 minutes. Time to perform other separately billable procedures was not included in the critical care time. My time did not include minutes spent treating any other patients simultaneously or on activities that did not directly contribute to the patient's treatment. The services I provided to this patient were to treat and/or prevent clinically significant deterioration that could result in: cardiovascular collapse or . I provided critical care services requiring my management, as noted below: Chart data review, documentation time, medication orders and management, vital sign assessments/reviewing monitor data, ordering and reviewing lab tests, ordering and interpreting/reviewing x-rays and diagnostic studies, care of the patient and discussion of the patient with the admitting physicians. Diagnosis Primary Impression: Acute kidney injury Admitting Information Admitting Physician Requests: Admit Erin Meyer DO Oct 12, 2016 20:00
[2016-10-12 20:45] LABS: AUTOMATED NEUTROPHIL # 11.5 TH/MM3 (1.8-7.7); BASOPHIL # 0.1 TH/MM3 (0-0.2); BASOPHIL % 0.6 % (0.0-2.0); EOSINOPHIL % 0.1 % (0.0-4.0); HEMATOCRIT 37.9 % (39.0-51.0); LYMPH % 1.7 % (9.0-44.0); LYMPHOCYTE # 0.2 TH/MM3 (1.0-4.8); MEAN CELL VOLUME 88.4 FL (80.0-100.0); MEAN CORPUSCULAR HEMOGLOBIN 29.1 PG (27.0-34.0); MEAN CORPUSCULAR HGB CONC 32.9 % (32.0-36.0); MONO % 2.1 % (0.0-8.0); NEUT % 95.5 % (16.0-70.0); PLATELET COUNT 223 TH/MM3 (150-450); RED BLOOD COUNT 4.29 MIL/MM3 (4.50-5.90); RED CELL DISTRIBUTION WIDTH 14.2 % (11.6-17.2); WHITE BLOOD COUNT 12.1 TH/MM3 (4.0-11.0)
[2016-10-12] MEDS ORDERED: DILT30TA PO (21:03)
[2016-10-12] MEDS ORDERED: FAMO1TAB30 PO (21:03)
[2016-10-12] MEDS ORDERED: METO25TA3 PO (21:03)
[2016-10-12] MEDS ORDERED: LISI2.5T3 PO (21:04)
--- NOTE | 2016-10-12 21:04 | RADHPO ---
EXAM DATE/TIME: 10/12/2016 20:37 [facility] COMPARISON: CT BRAIN W/O CONTRAST, August 11, 2016, 21:42. INDICATIONS : Altered mental status. RADIATION DOSE: 63.56 CTDIvol (mGy) MEDICAL HISTORY : Hypertension. Alzheimer's. Syncope. SURGICAL HISTORY : Intracranial shunt. ENCOUNTER: Initial ACUITY: 2 days PAIN SCALE: 0/10 LOCATION: cranial TECHNIQUE: Multiple contiguous axial images were obtained of the head. Using automated exposure control and adj ustment of the mA and/or kV according to patient size, radiation dose was kept as low as reasonably a chievable to obtain optimal diagnostic quality images. FINDINGS: There is no evidence for intracranial hemorrhage, mass effect, mass lesions, or edema. The visualize d bony structures appear intact. Slight degree of brain atrophy is seen. Slight periventricular whit e matter changes are seen nonspecific mostly consistent with chronic small vessel ischemic changes. There are no signs of acute infarction for technique. Right ventricular tube has not changed and vent riculomegaly is stable not changed. CONCLUSION: Slight atrophic and small vessel ischemic changes without any evidence for acute hemorrhage or mass effect. Ramin Orourke MD on October 12, 2016 at 21:01 Board Certified Radiologist. This report was verified electronically.
[2016-10-12 21:06] LABS: POTASSIUM 3.5 MEQ/L (3.5-5.1)
[2016-10-12 21:09] LABS: BICARBONATE 21.7 MEQ/L (21.0-32.0)
--- NOTE | 2016-10-12 21:10 | RADHPO ---
EXAM DATE/TIME: 10/12/2016 20:32 [facility] COMPARISON: CHEST SINGLE AP, August 13, 2016, 4:49. INDICATIONS : Weakness. MEDICAL HISTORY : Venous insufficiency. Alzheimer's. cardiovascular disease. hypertension. SURGICAL HISTORY : Shunt. ENCOUNTER: Initial ACUITY: 2 days PAIN SCORE: 0/10 LOCATION: chest FINDINGS: The lungs are clear without infiltrate, nodule, or mass. There is a tiny left pleural effusion. Hea rt and mediastinum are unremarkable. CONCLUSION: Tiny left pleural effusion. Ramin Orourke MD on October 12, 2016 at 21:08 Board Certified Radiologist. This report was verified electronically.
[2016-10-12 21:12] LABS: APTT (PATIENT) 29.3 SEC (24.3-30.1); HEMO FLAGS DIFF FINAL; PROTHROMBIN TIME - PATIENT 11.1 SEC (9.8-11.6)
[2016-10-12] MEDS ORDERED: cefTRIAXone INJ 1,000 MG in SODIUM CHLORIDE 0.9% INJ 100 ML IV ONE (21:30)
[2016-10-12] MEDS ORDERED: SODIUM CHLOR 0.9% 1000 ML INJ 1,000 ML IV ONE ×2 (21:30→22:00)
[2016-10-12 21:56] LABS: GLUCOSE,URINE NEG (NEG); KETONE, URINE NEG (NEG); NITRITE,URINE NEG (NEG); PH, URINE 7.5 (5.0-8.5)
[2016-10-12] MEDS ORDERED: ACETAMINOPHEN 650 MG SUPP RECTAL ONE (22:00)
[2016-10-12] MEDS ORDERED: ACETAMINOPHEN 325 MG TAB PO PRN (22:15)
[2016-10-12] MEDS ORDERED: ONDANSETRON HCL 4 MG/2 ML VIAL IVP PRN (22:15)
[2016-10-12] MEDS ORDERED: NALOXONE HCL 0.4 MG/ML AMP IV PRN (22:15)
[2016-10-12] MEDS ORDERED: SODIUM CHLORIDE 0.9% FLUSH 10 ML FLUSH IV FLUSH PRN (22:15)
[2016-10-12 22:19] LABS: BLOOD, URINE MOD (NEG); METHOD OF COLLECTION CATH; URINE COLOR YELLOW (YELLW/STRAW)
[2016-10-12 22:20] LABS: BACTERIA, URINE MANY /hpf; WBC, URINE INNUM /hpf (0-5)
[2016-10-12 22:21] LABS: COMMENT (UR) CATH-CULTURE IND; CULTURE IF INDICATED CATH CULTURE IND; SQUAMOUS EPITHELIAL CELL URINE 0-5 /hpf (0-5)
[2016-10-13] VITALS (40 sets, daily range): BP systolic 79–102; BP diastolic 40–61; PULSE 62–89; RESP 14–30; TEMP 98.2–100; O2SAT 94–99
[2016-10-13] MEDS ORDERED: CHLORHEXIDINE GLUCONATE 2 % 1 PACK (2 CLOTHS)(extra cloths) TOPICAL PRN (01:45)
[2016-10-13] MEDS: CHLORHEXIDINE GLUCONATE 2 % 1 PACK (2 CLOTHS)(taper/protocol) TOPICAL SCH (02:00)
[2016-10-13] MEDS: CIPROFLOXACIN 400 MG PREMIX 200 ML IV SCH ×2 (03:57→15:16)
[2016-10-13] MEDS: HYDROCORTISONE SOD SUCCINATE 100 MG VIAL IV PUSH SCH ×4 (03:57→22:00)
[2016-10-13] MEDS: SODIUM CHLOR 0.9% 1000 ML INJ 1,000 ML IV SCH ×3 (03:58→23:24)
[2016-10-13 05:26] LABS: BASOPHIL # 0.2 TH/MM3 (0-0.2); BASOPHIL % 1.5 % (0.0-2.0); HEMATOCRIT 32.2 % (39.0-51.0); LYMPHOCYTE # 0.3 TH/MM3 (1.0-4.8); MEAN CELL VOLUME 87.6 FL (80.0-100.0); MEAN CORPUSCULAR HGB CONC 33.1 % (32.0-36.0); MONO % 3.6 % (0.0-8.0); NEUT % 91.9 % (16.0-70.0); PLATELET COUNT 177 TH/MM3 (150-450); RED BLOOD COUNT 3.68 MIL/MM3 (4.50-5.90); RED CELL DISTRIBUTION WIDTH 13.7 % (11.6-17.2); WHITE BLOOD COUNT 10.9 TH/MM3 (4.0-11.0)
[2016-10-13 05:38] LABS: HEMO FLAGS DIFF FINAL
[2016-10-13 06:32] LABS: ALKALINE PHOSPHATASE 66 U/L (45-117); ALT (GPT) 53 U/L (12-78); ANION GAP 14 MEQ/L (5-15); AST (GOT) 47 U/L (15-37); BICARBONATE 20.8 MEQ/L (21.0-32.0); BLOOD UREA NITROGEN 73 MG/DL (7-18); CHLORIDE 110 MEQ/L (98-107); GLOMERULAR FILTRATION RATE 9 ML/MIN (>89); POTASSIUM 3.5 MEQ/L (3.5-5.1); SODIUM (NA) 145 MEQ/L (136-145); TOTAL BILIRUBIN ADULT 0.6 MG/DL (0.2-1.0)
[2016-10-13] MEDS: SODIUM CHLORIDE 0.9% FLUSH 10 ML FLUSH IV FLUSH SCH ×2 (09:16→20:43)
[2016-10-13] MEDS: PANTOPRAZOLE SOD 40 MG DELAYED RELEASE TAB PO SCH (09:16)
--- NOTE | 2016-10-13 12:03 | HHI.HP ---
[facility] Unknown Admission Diagnosis JOSE M, Urosepsis Diagnoses: (1) Severe sepsis Diagnosis: Principal (2) Acute kidney injury superimposed on chronic kidney disease Diagnosis: Principal (3) Urinary outflow obstruction Diagnosis: Principal (4) Urinary tract infection Diagnosis: Principal (5) Leucocytosis Diagnosis: Principal (6) Hypotension Diagnosis: Principal (7) Febrile illness Diagnosis: Principal Chief Complaint: Patient presented because of profound weakness Travel History International Travel<30 Days: No Contact w/Intl Traveler <30 Da: No Traveled to Known Affected Are: No Sepsis Criteria SIRS Criteria (2 or more): Temp > 100.9 or < 96.8, Heart rate over 90, RR > 20 or PaCO2 < 32, WBC > 86437, < 4000 or > 10% bands Sepsis Criteria (SIRS+source): Infect source susp/known Severe Sepsis (+one): Organ Dysfunction, Hypotension, Acute Oliguria/Renal Failure Criteria Outcome: Meets severe sepsis criteria History of Present Illness 80-year-old male with known history of dementia, hypertension, coronary disease, recurrent UTI, chronic kidney disease stage IIIII who presented to hospital with family because of weakness. Patient himself does have history of dementia and he was unable to give any accurate information white he is here. Information was taken from medical records and nursing staff. As indicated the patient was brought to the hospital by his because he had a very weak and was unable to get off the couch. The patient was brought to emergency department for evaluation, patient found to have severe sepsis with leukocytosis, febrile illness, tachycardia, tachypnea, low blood pressure. Patient has indwelling Root and it was indicated that the states that it had been working. However the Root was changed and 1000 cc of urine was removed. Patient had acute renal failure. Recent admission which is likely due to outlet obstruction from malfunctioning Root. At the time evaluating the patient he is resting comfortable in bed. He does have low blood pressure this time with map between 6065. He denies any complaints or any pain. Renal functions are improving. Patient remains in ICU at this time for further management. Review of Systems ROS Limitations: Poor Historian Past Family Social History Past Medical History Dementia Hypertension Coronary artery disease Recurrent urinary tract infection Chronic kidney disease stage 23 History of urinary retention Past Surgical History Cholecystectomy Appendectomy Left shoulder replacement Right knee replacement Cataract surgery Reported Medications Reported Meds & Active Scripts Active Reported Lisinopril 2.5 Mg Tab Unknown Dose PO DAILY Diltiazem (Diltiazem HCl) 30 Mg Tab Unknown Dose PO DAILY Metoprolol Tartrate 25 Mg Tab Unknown Dose PO DAILY Famotidine 10 Mg Tab Unknown Dose PO BID Donepezil 5 Mg Tab 5 Mg PO HS Allergies: Coded Allergies: Sulfa (Verified Allergy, Severe, Hives, 10/12/16) Family History Records were reviewed and there is no history of diabetes, coronary artery disease Social History Records reviewed the patient does live at home with his . Does walk with a walker. Records do not indicate any tobacco, or illicit drug use. There is occasional alcohol use Physical Exam Vital Signs Vital Signs Date Time Temp Pulse Resp B/P Pulse Ox O2 Delivery O2 Flow Rate FiO2 10/13/16 08:00 97 Nasal Cannula 4.00 10/13/16 06:16 68 19 80/50 99 10/13/16 06:01 70 20 80/48 98 10/13/16 06:00 74 10/13/16 05:51 70 21 84/54 97 10/13/16 05:46 72 19 80/47 99 10/13/16 05:31 70 22 91/53 97 10/13/16 05:16 68 21 83/51 99 10/13/16 05:01 76 24 95/53 98 10/13/16 04:46 74 22 81/48 98 10/13/16 04:45 74 21 98 10/13/16 04:33 76 26 92/53 98 10/13/16 04:31 78 21 79/47 98 10/13/16 04:16 78 26 95/57 97 10/13/16 04:02 98.9 80 23 83/47 98 10/13/16 04:00 77 10/13/16 03:25 82 21 84/46 97 10/13/16 03:24 78 21 100/40 97 10/13/16 03:00 97 Simple Mask 50 10/13/16 03:00 74 21 83/46 98 10/13/16 02:00 99 Venturi Mask 6.00 50 10/13/16 02:00 83 10/13/16 02:00 98.2 83 22 90/55 10/13/16 01:15 85 24 97/60 98 Nasal Cannula 2 10/13/16 00:30 100.0 89 24 95/61 97 Nasal Cannula 2 10/13/16 00:00 88 24 102/57 98 Nasal Cannula 2 10/12/16 23:15 99.6 90 25 108/57 98 Nasal Cannula 2 10/12/16 22:45 100.2 10/12/16 22:20 102.3 90 30 97/56 97 Nasal Cannula 2 10/12/16 21:45 102.3 99 31 101/47 96 Nasal Cannula 2 10/12/16 21:35 94 24 98/47 94 Nasal Cannula 2 10/12/16 20:23 94 25 85/43 94 Room Air 10/12/16 19:35 100.3 87 25 110/56 96 Room Air 10/12/16 19:35 25 96 Room Air 10/12/16 19:35 25 Physical Exam GENERAL: Well-developed, well-nourished, in no acute distress. alert and orientated to person. He states that he is in [place]. He knows that the president is Mr. Rubio. Is not orientated to time or place HEENT: Head is normocephalic without any lesions or masses noted. Facial features are symmetric. Eyes: Pupils equal round reactive to light. Extraocular muscles are intact. Conjunctivae were clear. Oropharyngeal: Pharynx without any erythema edema. Tongue is midline without deviation. Buccal mucosa is moist without any masses or lesions NECK: Supple without any masses. Trachea midline no deviation. No JVD, no bruits are appreciated CARDIAC: Regular rhythm, regular rate. S1/S2 are heard. No murmurs gallops or rubs. LUNGS: Clear to auscultation bilaterally. No wheeze, rhonchi or rales. No use of accessory muscles on inspiration or expiration. ABDOMEN: Soft, nontender. Nondistended. Bowel sounds heard in all 4 quadrants. No organomegaly or masses. Negative rebound, negative guarding EXTREMITIES: 2+ pitting edema noted bilateral lower extremities, pulses are equal bilaterally. No cyanosis or clubbing NEUROLOGY: Mood and affect appear appropriate. Cranial nerves II through XII grossly intact. Muscle strength 5/5 in upper and lower extremities bilaterally. Deep tendon reflexes are 2+ in upper and lower extremities bilaterally. Laboratory Laboratory Tests Test 10/12/16 10/12/16 10/13/16 20:25 21:15 05:15 White Blood Count 12.1 10.9 Red Blood Count 4.29 3.68 Hemoglobin 12.5 10.7 Hematocrit 37.9 32.2 Mean Corpuscular Volume 88.4 87.6 Mean Corpuscular Hemoglobin 29.1 29.0 Mean Corpuscular Hemoglobin 32.9 33.1 Concent Red Cell Distribution Width 14.2 13.7 Platelet Count 223 177 Mean Platelet Volume 7.9 7.7 Neutrophils (%) (Auto) 95.5 91.9 Lymphocytes (%) (Auto) 1.7 3.0 Monocytes (%) (Auto) 2.1 3.6 Eosinophils (%) (Auto) 0.1 0.0 Basophils (%) (Auto) 0.6 1.5 Neutrophils # (Auto) 11.5 10.0 Lymphocytes # (Auto) 0.2 0.3 Monocytes # (Auto) 0.3 0.4 Eosinophils # (Auto) 0.0 0.0 Basophils # (Auto) 0.1 0.2 CBC Comment DIFF FINAL DIFF FINAL Differential Comment Prothrombin Time 11.1 Prothromb Time International 1.0 Ratio Activated Partial 29.3 Thromboplast Time Sodium Level 138 145 Potassium Level 3.5 3.5 Chloride Level 101 110 Carbon Dioxide Level 21.7 20.8 Anion Gap 15 14 Blood Urea Nitrogen 76 73 Creatinine 7.60 6.30 Estimat Glomerular Filtration 7 9 Rate Random Glucose 107 114 Lactic Acid Level 1.1 Calcium Level 8.3 7.6 Total Creatine Kinase 34 Troponin I 0.02 Thyroid Stimulating Hormone 1.550 3rd Gen Urine Collection Type CATH Urine Color YELLOW Urine Turbidity MOD Urine pH 7.5 Urine Specific [place] 1.013 Urine Protein 100 Urine Glucose (UA) NEG Urine Ketones NEG Urine Occult Blood MOD Urine Nitrite NEG Urine Bilirubin NEG Urine Leukocyte Esterase MOD Urine WBC INNUM Urine WBC Clumps MANY Urine Squamous Epithelial 0-5 Cells Urine Bacteria MANY Microscopic Urinalysis Comment CATH-CULTURE IND Total Bilirubin 0.6 Aspartate Amino Transf 47 (AST/SGOT) Alanine Aminotransferase 53 (ALT/SGPT) Alkaline Phosphatase 66 Total Protein 5.5 Albumin 2.1 Date/Time Procedure Status Source Growth 10/12/16 21:15 Urine Culture Received Urine Catheterized Urine Pending 10/12/16 20:27 Aerobic Blood Culture - Preliminary Resulted Blood Peripheral NO GROWTH IN 1 DAY 10/12/16 20:27 Anaerobic Blood Culture - Preliminary Resulted Blood Peripheral NO GROWTH IN 1 DAY Result Diagram: 10/13/16 0515 10/13/1615 Imaging Last Impressions Head CT 10/12/161950 Signed Impressions: Service Date/Time: Wednesday, October 12, 2016 20:37 - CONCLUSION: Slight atrophic and small vessel ischemic changes without any evidence for acute hemorrhage or mass effect. Ramin Orourke MD Chest X-Ray 10/12/161950 Signed Impressions: Service Date/Time: Wednesday, October 12, 2016 20:32 - CONCLUSION: Tiny left pleural effusion. Ramin Orourke MD Septic Shock Reassessment Heart: Regular rate and rhythm Lungs: Clear Skin: Warm, Moist Peripheral Pulses: Bounding Right Radial Bounding Left Radial Capillary Refill: <2 seconds Assessment and Plan Problem List: (1) Severe sepsis ICD Code: A41.9 Status: Acute (2) Urinary outflow obstruction ICD Code: N13.9 Status: Acute (3) Acute kidney injury superimposed on chronic kidney disease ICD Code: N17.9 Status: Acute (4) Leucocytosis ICD Code: D72.829 Status: Acute (5) Hypotension ICD Code: I95.9 Status: Acute (6) Febrile illness ICD Code: R50.9 Status: Acute Assessment and Plan Severe sepsis Patient meets criteria on admission with febrile illness, leukocytosis, tachypnea, tachycardia, hypotension, acute renal failure, urinary tract infection Patient started on empirical antibiotics to include Rocephin, Cipro Blood cultures are pending, urine culture is pending Chest x-ray does not indicate any acute infectious abnormality Patient started on stress dose hydrocortisone Give Normal saline bolus 1 Liter Acute renal failure superimposed on chronic kidney disease Secondary to outflow obstruction from malfunctioning Root Continue IV fluids Continue monitor renal function Avoid nephrotoxins Travel Manager was consulted for recommendations Urinary tract infection, complicated with sepsis, Root Await urine culture for appropriate antibiotics Patient empirically started on Rocephin and Cipro Hypertension, now hypotensive Hold blood pressure medication Dementia Continue home medications DVT prevention sequential compression devices Written by Anshu Armstrong, acting as scribe for Dr. Francisco on 10/13/16 at 12: 01. This note was transcribed by juni Armstrong. I, Dr. Tristen Francisco personally performed the history, physical exam, and medical decision making; and confirmed the accuracy of the information in the transcribed note. Authenticated by Dr. Tristen Francisco on 10/13/16 at 12:01. Code Status Full code Physician Certification 2 Midnight Certification Type: Admission for Inpatient Services Order for Inpatient Services The services are ordered in accordance with Medicare regulations or non- Medicare payer requirements, as applicable. In the case of services not specified as inpatient-only, they are appropriately provided as inpatient services in accordance with the 2-midnight benchmark. Estimated LOS (days): 3 days is the estimated time the patient will need to remain in the hospital, assuming treatment plan goals are met and no additional complications. Post-Hospital Plan: Not yet determined Problem Qualifiers (1) Urinary tract infection: Anshu Armstrong October 13, 2016 12:03 Tristen Francisco MD October 13, 2016 12:13
[2016-10-13] MEDS ORDERED: SODIUM CHLOR 0.9% 1000 ML INJ 1,000 ML IV ONE (12:15)
--- NOTE | 2016-10-13 16:29 | PD.CONS ---
HPI Service Nephrology Consult Requested By Dr. Francisco Reason for Consult Acute renal failure Primary Care Physician Unknown History of Present Illness 80-year-old with history of dementia who has been feeling weak and tired lethargic unable to get off the couch and was brought to the hospital by the family with these complaint found to have acute renal failure with a creatinine of 7.6 this declined with hydration and exchange of his Root catheter which was blocked as well as this was done 1 L of urine came out and creatinine declining to 6.3 patient also has been treated for urinary tract infection he is not a good historian unable to provide any further history Review of Systems ROS Limitations: Clinical Condition Past Family Social History Allergies: Coded Allergies: Sulfa (Verified Allergy, Severe, Hives, 10/12/16) Past Medical History Dementia Hypertension Coronary artery disease Recurrent urinary tract infection Chronic kidney disease stage 23 History of urinary retention Past Surgical History Cholecystectomy Appendectomy Left shoulder replacement Right knee replacement Cataract surgery Reported Medications Reported Meds & Active Scripts Active Reported Lisinopril 2.5 Mg Tab Unknown Dose PO DAILY Diltiazem (Diltiazem HCl) 30 Mg Tab Unknown Dose PO DAILY Metoprolol Tartrate 25 Mg Tab Unknown Dose PO DAILY Famotidine 10 Mg Tab Unknown Dose PO BID Donepezil 5 Mg Tab 5 Mg PO HS Active Ordered Medications Current Medications Medications (Trade) Dose Ordered Sig/Natalya Route Start Time Stop Time Status Last Admin (NS Flush) 2 ml UNSCH PRN IV FLUSH 10/12/16 22:15 (NS Flush) 2 ml BID IV FLUSH 10/13/16 09:00 10/13/16 09:16 (Tylenol) 650 mg Q4H PRN PO 10/12/16 22:15 (Zofran Inj) 4 mg Q6H PRN IVP 10/12/16 22:15 Naloxone HCl 0.4 mg 0.4 mg UNSCH PRN IV 10/12/16 22:15 (Rocephin Inj/NS Inj) 100 ml @ 200 mls/hr Q24H IV 10/13/16 21:00 Miscellaneous Information Patient in critical care unit? Ass... [id number] .XX 10/13/16 01:45 (Chlorhexidine 2% Cloth) 3 pack DAILY@04 TOPICAL 10/13/16 04:00 10/17/16 04:01 10/13/16 02:00 Chlorhexidine Gluconate 3 pack 3 pack UNSCH PRN TOPICAL 10/13/16 01:45 10/18/16 01:38 Ciprofloxacin/ Dextrose 200 ml @ 200 mls/hr Q12H IV 10/13/16 04:00 10/13/16 15:16 (NS 1000 ml Inj) 1,000 ml @ 100 mls/hr Q10H IV 10/13/16 03:45 10/13/16 14:25 (SoluCORTEF INJ) 100 mg Q8HR IV PUSH 10/13/16 04:00 10/13/16 14:21 (Protonix) 40 mg DAILY PO 10/13/16 09:00 10/13/16 09:16 (Aricept) 5 mg HS PO 10/13/16 21:00 Family History Noncontributory Social History Denies smoking or alcohol Physical Exam Vital Signs Vital Signs Date Time Temp Pulse Resp B/P Pulse Ox O2 Delivery O2 Flow Rate FiO2 10/13/16 14:00 76 10/13/16 14:00 68 24 80/45 96 10/13/16 13:00 68 23 87/40 96 10/13/16 12:00 64 10/13/16 12:00 64 17 84/49 99 10/13/16 11:00 78 30 87/59 97 10/13/16 10:00 62 14 87/54 99 10/13/16 10:00 62 10/13/16 09:00 68 20 87/49 94 10/13/16 08:00 97 Nasal Cannula 4.00 10/13/16 08:00 68 19 88/56 98 10/13/16 08:00 66 10/13/16 07:00 98.3 74 20 94/52 98 10/13/16 07:00 98 Simple Mask 50 10/13/16 06:16 68 19 80/50 99 10/13/16 06:01 70 20 80/48 98 10/13/16 06:00 74 10/13/16 05:51 70 21 84/54 97 10/13/16 05:46 72 19 80/47 99 10/13/16 05:31 70 22 91/53 97 10/13/16 05:16 68 21 83/51 99 10/13/16 05:01 76 24 95/53 98 10/13/16 04:46 74 22 81/48 98 10/13/16 04:45 74 21 98 10/13/16 04:33 76 26 92/53 98 10/13/16 04:31 78 21 79/47 98 10/13/16 04:16 78 26 95/57 97 10/13/16 04:02 98.9 80 23 83/47 98 10/13/16 04:00 77 10/13/16 03:25 82 21 84/46 97 10/13/16 03:24 78 21 100/40 97 10/13/16 03:00 97 Simple Mask 50 10/13/16 03:00 74 21 83/46 98 10/13/16 02:00 99 Venturi Mask 6.00 50 10/13/16 02:00 83 10/13/16 02:00 98.2 83 22 90/55 10/13/16 01:15 85 24 97/60 98 Nasal Cannula 2 10/13/16 00:30 100.0 89 24 95/61 97 Nasal Cannula 2 10/13/16 00:00 88 24 102/57 98 Nasal Cannula 2 10/12/16 23:15 99.6 90 25 108/57 98 Nasal Cannula 2 10/12/16 22:45 100.2 10/12/16 22:20 102.3 90 30 97/56 97 Nasal Cannula 2 10/12/16 21:45 102.3 99 31 101/47 96 Nasal Cannula 2 10/12/16 21:35 94 24 98/47 94 Nasal Cannula 2 10/12/16 20:23 94 25 85/43 94 Room Air 10/12/16 19:35 100.3 87 25 110/56 96 Room Air 10/12/16 19:35 25 96 Room Air 10/12/16 19:35 25 Physical Exam GENERAL: Well-nourished, well-developed patient. SKIN: Warm and dry. HEAD: Normocephalic. EYES: No scleral icterus. No injection or drainage. NECK: Supple, trachea midline. No JVD or lymphadenopathy. CARDIOVASCULAR: Regular rate and rhythm without murmurs, gallops, or rubs. RESPIRATORY: Breath sounds equal bilaterally. No accessory muscle use. GASTROINTESTINAL: Abdomen soft, non-tender, nondistended. EXTREMITIES: No cyanosis, or edema. NEUROLOGICAL: Awake, alert, and oriented x 3. Non-focal. Laboratory Laboratory Tests Test 10/12/16 10/12/16 10/13/16 10/13/16 20:25 21:15 01:45 05:15 White Blood Count 12.1 10.9 Red Blood Count 4.29 3.68 Hemoglobin 12.5 10.7 Hematocrit 37.9 32.2 Mean Corpuscular Volume 88.4 87.6 Mean Corpuscular Hemoglobin 29.1 29.0 Mean Corpuscular Hemoglobin 32.9 33.1 Concent Red Cell Distribution Width 14.2 13.7 Platelet Count 223 177 Mean Platelet Volume 7.9 7.7 Neutrophils (%) (Auto) 95.5 91.9 Lymphocytes (%) (Auto) 1.7 3.0 Monocytes (%) (Auto) 2.1 3.6 Eosinophils (%) (Auto) 0.1 0.0 Basophils (%) (Auto) 0.6 1.5 Neutrophils # (Auto) 11.5 10.0 Lymphocytes # (Auto) 0.2 0.3 Monocytes # (Auto) 0.3 0.4 Eosinophils # (Auto) 0.0 0.0 Basophils # (Auto) 0.1 0.2 CBC Comment DIFF FINAL DIFF FINAL Differential Comment Prothrombin Time 11.1 Prothromb Time International 1.0 Ratio Activated Partial 29.3 Thromboplast Time Sodium Level 138 145 Potassium Level 3.5 3.5 Chloride Level 101 110 Carbon Dioxide Level 21.7 20.8 Anion Gap 15 14 Blood Urea Nitrogen 76 73 Creatinine 7.60 6.30 Estimat Glomerular Filtration 7 9 Rate Random Glucose 107 114 Lactic Acid Level 1.1 Calcium Level 8.3 7.6 Total Creatine Kinase 34 Troponin I 0.02 Thyroid Stimulating Hormone 1.550 3rd Gen Urine Collection Type CATH Urine Color YELLOW Urine Turbidity MOD Urine pH 7.5 Urine Specific [place] 1.013 Urine Protein 100 Urine Glucose (UA) NEG Urine Ketones NEG Urine Occult Blood MOD Urine Nitrite NEG Urine Bilirubin NEG Urine Leukocyte Esterase MOD Urine WBC INNUM Urine WBC Clumps MANY Urine Squamous Epithelial 0-5 Cells Urine Bacteria MANY Microscopic Urinalysis Comment CATH-CULTURE IND Nasal Screen MRSA (PCR) MRSA NOT DETECTED Total Bilirubin 0.6 Aspartate Amino Transf 47 (AST/SGOT) Alanine Aminotransferase 53 (ALT/SGPT) Alkaline Phosphatase 66 Total Protein 5.5 Albumin 2.1 Date/Time Procedure Status Source Growth 10/12/16 21:15 Urine Culture Received Urine Catheterized Urine Pending 10/12/16 20:27 Aerobic Blood Culture - Preliminary Resulted Blood Peripheral NO GROWTH IN 1 DAY 10/12/16 20:27 Anaerobic Blood Culture - Preliminary Resulted Blood Peripheral NO GROWTH IN 1 DAY Result Diagram: 10/13/16 0515 10/13/16 0515 Imaging Last Impressions Head CT 10/12/161950 Signed Impressions: Service Date/Time: Wednesday, October 12, 2016 20:37 - CONCLUSION: Slight atrophic and small vessel ischemic changes without any evidence for acute hemorrhage or mass effect. Ramin Orourke MD Chest X-Ray 10/12/161950 Signed Impressions: Service Date/Time: Wednesday, October 12, 2016 20:32 - CONCLUSION: Tiny left pleural effusion. Ramin Orourke MD Assessment and Plan Problem List: (1) Acute urinary retention Plan: Resolving with Root catheter exchange. He is passing urine although he is hypotensive fluid boluses were given and renal functions are improving, he has several episodes of acute renal insufficiency and that he has a kidney ultrasound showing left moderate hydronephrosis in 2015 Dr. 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
[2016-10-13] MEDS: DONEPEZIL HCL 5 MG TAB PO SCH (20:42)
[2016-10-13] MEDS: cefTRIAXone INJ 1,000 MG in SODIUM CHLORIDE 0.9% INJ 100 ML IV SCH (20:43)
--- NOTE | 2016-10-13 22:56 | EKG ---
Date Performed: 10/12/2016 Time Performed: 19:58:50 PTAGE: 80 years EKG: Sinus rhythm Septal T wave changes are nonspecific Borderline ECG PREVIOUS TRACING : 08/12/2016 22.48 Compared to prior tracing no significant change DOCTOR: Brandon Pichardo Interpretating Date/Time 10/13/2016 22:54:40
[2016-10-14] VITALS (17 sets, daily range): BP systolic 91–128; BP diastolic 32–70; PULSE 56–84; RESP 8–38; TEMP 97.6–98.2; O2SAT 92–100
[2016-10-14] MEDS: CHLORHEXIDINE GLUCONATE 2 % 1 PACK (2 CLOTHS)(taper/protocol) TOPICAL SCH (03:15)
[2016-10-14] MEDS: CIPROFLOXACIN 400 MG PREMIX 200 ML IV SCH (03:36)
[2016-10-14 05:29] LABS: AUTOMATED NEUTROPHIL # 9.6 TH/MM3 (1.8-7.7); BASOPHIL % 0.1 % (0.0-2.0); EOSINOPHIL # 0.1 TH/MM3 (0-0.4); EOSINOPHIL % 0.6 % (0.0-4.0); HEMATOCRIT 31.9 % (39.0-51.0); LYMPH % 2.8 % (9.0-44.0); LYMPHOCYTE # 0.3 TH/MM3 (1.0-4.8); MEAN CELL VOLUME 89.7 FL (80.0-100.0); MEAN CORPUSCULAR HGB CONC 32.3 % (32.0-36.0); MONO % 1.8 % (0.0-8.0); NEUT % 94.7 % (16.0-70.0); PLATELET COUNT 165 TH/MM3 (150-450); RED BLOOD COUNT 3.55 MIL/MM3 (4.50-5.90); RED CELL DISTRIBUTION WIDTH 14.4 % (11.6-17.2); WHITE BLOOD COUNT 10.2 TH/MM3 (4.0-11.0)
[2016-10-14 05:30] LABS: HEMO FLAGS DIFF FINAL
[2016-10-14 05:34] LABS: POTASSIUM 3.2 MEQ/L (3.5-5.1)
[2016-10-14] MEDS: HYDROCORTISONE SOD SUCCINATE 100 MG VIAL IV PUSH SCH (05:39)
[2016-10-14 05:40] LABS: BICARBONATE 20.7 MEQ/L (21.0-32.0); MAGNESIUM 2.1 MG/DL (1.5-2.5)
[2016-10-14] MEDS ORDERED: CIPROFLOXACIN 400 MG PREMIX 200 ML IV SCH (07:30)
[2016-10-14] MEDS: PANTOPRAZOLE SOD 40 MG DELAYED RELEASE TAB PO SCH (08:04)
[2016-10-14] MEDS: SODIUM CHLORIDE 0.9% FLUSH 10 ML FLUSH IV FLUSH SCH ×2 (08:04→20:19)
[2016-10-14] MEDS: SODIUM CHLOR 0.9% 1000 ML INJ 1,000 ML IV SCH ×2 (08:04→19:45)
[2016-10-14] MEDS ORDERED: POTASSIUM CHLORIDE 20 MEQ CONTROLLED RELEASE TAB PO ONE (09:30)
--- NOTE | 2016-10-14 13:45 | HHI.PR ---
Subjective Remarks Follow-up sepsis/UTI and now bacteremia 10/14/16-patient seen and examined, currently afebrile however now with 3 positive blood culture. BP 104/55 @13:00 Objective Vitals Vital Signs Date Time Temp Pulse Resp B/P Pulse Ox O2 Delivery O2 Flow Rate FiO2 10/14/16 08:05 97 21 10/14/16 06:00 58 10/14/16 06:00 58 17 96/51 98 10/14/16 05:00 56 8 91/49 96 10/14/16 05:00 56 10/14/16 04:00 72 10/14/16 04:00 98.0 72 20 106/54 98 10/14/16 03:00 64 33 107/54 95 10/14/16 03:00 64 10/14/16 02:00 72 38 123/70 97 10/14/16 02:00 72 10/14/16 01:00 74 23 118/63 97 10/14/16 01:00 74 10/14/16 00:00 82 10/14/16 00:00 97.8 82 25 107/58 92 10/13/16 23:00 68 20 91/54 10/13/16 22:00 68 10/13/16 22:00 68 21 85/54 95 10/13/16 21:00 68 21 84/46 94 10/13/16 20:00 68 19 85/52 96 10/13/16 20:00 68 10/13/16 19:30 96 21 10/13/16 19:00 68 24 81/46 95 10/13/16 19:00 Room Air 10/13/16 18:00 67 10/13/16 18:00 82 28 97/57 96 10/13/16 17:00 66 19 95/53 95 10/13/16 16:00 67 10/13/16 16:00 68 17 94/56 96 10/13/16 15:00 98.3 95/53 10/13/16 14:00 76 10/13/16 14:00 68 24 80/45 96 I/O 10/13/16 10/13/16 10/13/16 10/14/16 10/14/16 10/14/16 07:00 15:00 23:00 07:00 15:00 23:00 Intake Total 2468 ml 1193 ml 2100 ml 808 ml Output Total 1750 ml 1600 ml 850 ml 752 ml Balance 718 ml -407 ml 1250 ml 56 ml Intake Oral 120 ml 360 ml 240 ml 48 ml IV Total 2348 ml 833 ml 1860 ml 760 ml Output Urine Total 1750 ml 1600 ml 850 ml 750 ml Stool Total 2 ml # Bowel Movements 2 Result Diagram: 10/14/16 0437 10/14/167 Imaging Last Impressions Head CT 10/12/161950 Signed Impressions: Service Date/Time: Wednesday, October 12, 2016 20:37 - CONCLUSION: Slight atrophic and small vessel ischemic changes without any evidence for acute hemorrhage or mass effect. Ramin Orourke MD Chest X-Ray 10/12/161950 Signed Impressions: Service Date/Time: Wednesday, October 12, 2016 20:32 - CONCLUSION: Tiny left pleural effusion. Ramin Orourke MD Objective Remarks GENERAL: NAD and sitting in a chair SKIN: Warm and dry. HEAD: Normocephalic. EYES: No scleral icterus. No injection or drainage. NECK: Supple, trachea midline. No JVD or lymphadenopathy. CARDIOVASCULAR: Regular rate and rhythm without murmurs, gallops, or rubs. RESPIRATORY: Breath sounds equal bilaterally. No accessory muscle use. GASTROINTESTINAL: Abdomen soft, non-tender, nondistended. MUSCULOSKELETAL: No cyanosis, or edema. BACK: Nontender without obvious deformity. No CVA tenderness. A/P Problem List: (1) Bacteremia due to Gram-positive bacteria ICD Code: A49.9 Status: Acute (2) Severe sepsis ICD Code: A41.9 Status: Acute (3) Urinary outflow obstruction ICD Code: N13.9 Status: Acute (4) Acute kidney injury superimposed on chronic kidney disease ICD Code: N17.9 Status: Acute (5) Leucocytosis ICD Code: D72.829 Status: Acute (6) Hypotension ICD Code: I95.9 Status: Acute (7) Febrile illness ICD Code: R50.9 Status: Acute Assessment and Plan 80-year-old man with Severe sepsis Patient meets criteria on admission with febrile illness, leukocytosis, tachypnea, tachycardia, hypotension, acute renal failure, urinary tract infection Currently on Rocephin, Cipro however will discontinue Cipro and start vancomycin 3#4 positive blood culture 10/14/16 Bacteremia 3#4 blood culture Repeat blood culture Consult infectious disease specialist Start vancomycin and continue Rocephin. Discontinue Cipro Acute renal failure superimposed on chronic kidney disease Secondary to outflow obstruction from malfunctioning Root Continue IV fluids Continue monitor renal function Avoid nephrotoxins Therapy Teacher ff Urinary tract infection, complicated with sepsis, Root Await urine culture for appropriate antibiotics Continue on Rocephin Hypertension Labile BP Continue Hold blood pressure medication Hypotension d/c Solu-Cortef start Midodrine 5mg PO TID Dementia Continue home medications Hypokalemia Replace electrolyte and monitor DVT prevention sequential compression devices Tristen Francisco MD October 14, 2016 13:45
[2016-10-14] MEDS ORDERED: Vancomycin Consult Pharmacy 1 EA OTHER SCH (14:00)
[2016-10-14] MEDS ORDERED: VANCOMYCIN INJ 1,250 MG in SODIUM CHLOR 0.9% 250 ML INJ 250 ML IV SCH (16:00)
[2016-10-14] MEDS: MIDODRINE 5 MG TAB PO SCH (16:49)
--- NOTE | 2016-10-14 19:34 | PD.CONS ---
History of Present Illness Service Infectious Disease Consult Requested By Dr Tristen Francisco Reason for Consult Bacteremia Primary Care Physician Unknown Diagnoses: (1) UTI (urinary tract infection) (2) Sepsis History of Present Illness Patient with h/o dementia- lives at home with his on a chronic foleys - regularly changed per patient- came in with worsening mental status and high fevers. Found to have a UTI and Blood cultures have turned positive and so the consult. Patient is now afebrile- awake and answering simple questions. Review of Systems Constitutional: COMPLAINS OF: Fever, Chills Endocrine: DENIES: Polyuria Eyes: DENIES: Diplopia, Eye pain Ears, nose, mouth, throat: DENIES: Nasal discharge, Oral lesions Respiratory: DENIES: Cough, Wheezing Cardiovascular: DENIES: Chest pain Gastrointestinal: DENIES: Abdominal pain, Constipation Musculoskeletal: DENIES: Muscle aches Integumentary: DENIES: Abnormal pigmentation Neurologic: DENIES: Headache Psychiatric: COMPLAINS OF: Confusion Past Family Social History Allergies: Coded Allergies: Sulfa (Verified Allergy, Severe, Hives, 10/12/16) Past Medical History Dementia Hypertension Coronary artery disease Recurrent urinary tract infection Chronic kidney disease stage 23 History of urinary retention Past Surgical History Cholecystectomy Appendectomy Left shoulder replacement Right knee replacement Cataract surgery Reported Medications Ceftriaxone, Vancomycin Social History Lives at home with Physical Exam Vital Signs Vital Signs Date Time Temp Pulse Resp B/P Pulse Ox O2 Delivery O2 Flow Rate FiO2 10/14/16 15:00 68 22 109/59 98 10/14/16 11:00 98.2 62 28 102/54 97 10/14/16 08:05 97 21 10/14/16 08:00 97.6 70 20 128/63 97 10/14/16 07:00 97 Room Air 21 10/14/16 07:00 97.6 70 20 128/63 97 10/14/16 06:00 58 10/14/16 06:00 58 17 96/51 98 10/14/16 05:00 56 8 91/49 96 10/14/16 05:00 56 10/14/16 04:00 72 10/14/16 04:00 98.0 72 20 106/54 98 10/14/16 03:00 64 33 107/54 95 10/14/16 03:00 64 10/14/16 02:00 72 38 123/70 97 10/14/16 02:00 72 10/14/16 01:00 74 23 118/63 97 10/14/16 01:00 74 10/14/16 00:00 82 10/14/16 00:00 97.8 82 25 107/58 92 10/13/16 23:00 68 20 91/54 10/13/16 22:00 68 10/13/16 22:00 68 21 85/54 95 10/13/16 21:00 68 21 84/46 94 10/13/16 20:00 68 19 85/52 96 10/13/16 20:00 68 Physical Exam GENERAL: This is a elderly patient, in no apparent distress. SKIN: No rashes, or lesions. Cool and dry. Ecchymoses HEAD: Atraumatic. Normocephalic. No temporal or scalp tenderness. EYES: Pupils equal round and reactive. Extraocular motions intact. No scleral icterus. No injection or drainage. ENT: Nose without bleeding, purulent drainage or septal hematoma. Throat without erythema, tonsillar hypertrophy or exudate. Uvula midline. Airway patent. NECK: Trachea midline. No JVD or lymphadenopathy. Supple, nontender, no meningeal signs. CARDIOVASCULAR: Regular rate and rhythm without murmurs, gallops, or rubs. RESPIRATORY: Clear to auscultation. Breath sounds equal bilaterally. No wheezes , rales, or rhonchi. GASTROINTESTINAL: Abdomen soft, non-tender, nondistended. No hepato-splenomegaly , or palpable masses. No guarding. Chronic Root MUSCULOSKELETAL: Extremities without clubbing, cyanosis, or edema. No joint tenderness, effusion, or edema noted. No calf tenderness. Negative Homans sign bilaterally. NEUROLOGICAL: Awake and alert. Cranial nerves II through XII intact. Motor and sensory grossly within normal limits. Five out of 5 muscle strength in all muscle groups. Normal speech. Laboratory Laboratory Tests Test 10/14/16 04:37 White Blood Count 10.2 Red Blood Count 3.55 Hemoglobin 10.3 Hematocrit 31.9 Mean Corpuscular Volume 89.7 Mean Corpuscular Hemoglobin 29.0 Mean Corpuscular Hemoglobin 32.3 Concent Red Cell Distribution Width 14.4 Platelet Count 165 Mean Platelet Volume 8.8 Neutrophils (%) (Auto) 94.7 Lymphocytes (%) (Auto) 2.8 Monocytes (%) (Auto) 1.8 Eosinophils (%) (Auto) 0.6 Basophils (%) (Auto) 0.1 Neutrophils # (Auto) 9.6 Lymphocytes # (Auto) 0.3 Monocytes # (Auto) 0.2 Eosinophils # (Auto) 0.1 Basophils # (Auto) 0.0 CBC Comment DIFF FINAL Differential Comment Sodium Level 147 Potassium Level 3.2 Chloride Level 114 Carbon Dioxide Level 20.7 Anion Gap 12 Blood Urea Nitrogen 65 Creatinine 4.10 Estimat Glomerular Filtration 14 Rate Random Glucose 175 Calcium Level 7.7 Magnesium Level 2.1 Date/Time Procedure Status Source Growth 10/14/16 11:20 Aerobic Blood Culture Received Blood Peripheral Pending 10/14/16 11:20 Anaerobic Blood Culture Received Blood Peripheral Pending 10/12/16 21:15 Urine Culture - Preliminary Resulted Urine Catheterized Urine 10/12/16 20:27 Aerobic Blood Culture - Preliminary Resulted Blood Peripheral Gram Negative Robert 10/12/16 20:27 Anaerobic Blood Culture - Preliminary Resulted Gram Variable Robert Gram Positive Cocci Result Diagram: 10/14/16 0437 10/14/16 0437 Assessment and Plan Problem List: (1) Sepsis Status: Acute Plan: Follow blood cultures ! bottle identified as Proteus - Others reported as Gram variable robert which is likely a GNR 1 Bottle with GPC- likely contaminant Stop Vancomycin Continue Ceftriaxone Re check Blood cultures (2) UTI (urinary tract infection) Status: Acute Plan: Re check UA and culture Check US abdomen Problem Qualifiers (1) UTI (urinary tract infection): Qualified Code: T83.511A - Urinary tract infection associated with indwelling urethral catheter, initial encounter Dina Ann MD October 14, 2016 19:34
[2016-10-14] MEDS: DONEPEZIL HCL 5 MG TAB PO SCH (20:18)
[2016-10-14] MEDS: cefTRIAXone INJ 1,000 MG in SODIUM CHLORIDE 0.9% INJ 100 ML IV SCH (20:19)
[2016-10-14 22:24] LABS: BLOOD, URINE LARGE (NEG); GLUCOSE,URINE NEG (NEG); KETONE, URINE NEG (NEG); NITRITE,URINE NEG (NEG)
[2016-10-14 22:42] LABS: METHOD OF COLLECTION CATH; URINE COLOR YELLOW (YELLW/STRAW)
[2016-10-14 22:43] LABS: MUCUS URINE FEW /lpf (OCC)
[2016-10-14 22:44] LABS: SQUAMOUS EPITHELIAL CELL URINE 0-5 /hpf (0-5)
[2016-10-14 22:45] LABS: BACTERIA, URINE FEW /hpf
[2016-10-14 22:46] LABS: COMMENT (UR) CULTURE INDICATED; CULTURE IF INDICATED CULTURE INDICATED
[2016-10-15] VITALS (17 sets, daily range): BP systolic 103–146; BP diastolic 52–84; PULSE 68–108; RESP 18–35; TEMP 97.4–98.5; O2SAT 94–99
[2016-10-15] MEDS: CHLORHEXIDINE GLUCONATE 2 % 1 PACK (2 CLOTHS)(taper/protocol) TOPICAL SCH (04:00)
[2016-10-15] MEDS: SODIUM CHLOR 0.9% 1000 ML INJ 1,000 ML IV SCH (05:45)
[2016-10-15] MEDS: MIDODRINE 5 MG TAB PO SCH ×3 (06:00→17:24)
[2016-10-15 06:06] LABS: AUTOMATED NEUTROPHIL # 11.8 TH/MM3 (1.8-7.7); BASOPHIL # 0.1 TH/MM3 (0-0.2); BASOPHIL % 0.5 % (0.0-2.0); EOSINOPHIL % 0.2 % (0.0-4.0); HEMATOCRIT 35.7 % (39.0-51.0); LYMPH % 4.8 % (9.0-44.0); LYMPHOCYTE # 0.6 TH/MM3 (1.0-4.8); MEAN CELL VOLUME 90.5 FL (80.0-100.0); MEAN CORPUSCULAR HEMOGLOBIN 29.8 PG (27.0-34.0); MEAN CORPUSCULAR HGB CONC 32.9 % (32.0-36.0); MONO % 4.5 % (0.0-8.0); PLATELET COUNT 217 TH/MM3 (150-450); RED BLOOD COUNT 3.94 MIL/MM3 (4.50-5.90); RED CELL DISTRIBUTION WIDTH 14.6 % (11.6-17.2); WHITE BLOOD COUNT 13.1 TH/MM3 (4.0-11.0)
[2016-10-15 06:14] LABS: CHLORIDE 118 MEQ/L (98-107); POTASSIUM 3.2 MEQ/L (3.5-5.1); SODIUM (NA) 150 MEQ/L (136-145)
[2016-10-15 06:20] LABS: ANION GAP 11 MEQ/L (5-15); BICARBONATE 21.3 MEQ/L (21.0-32.0)
[2016-10-15 06:21] LABS: BLOOD UREA NITROGEN 57 MG/DL (7-18)
[2016-10-15 06:23] LABS: ALT (GPT) 64 U/L (12-78); AST (GOT) 61 U/L (15-37)
[2016-10-15 06:49] LABS: ALKALINE PHOSPHATASE 62 U/L (45-117); GLOMERULAR FILTRATION RATE 20 ML/MIN (>89); TOTAL BILIRUBIN ADULT 0.2 MG/DL (0.2-1.0)
[2016-10-15 07:03] LABS: HEMO FLAGS DIFF FINAL
[2016-10-15] MEDS ORDERED: CIPROFLOXACIN 400 MG PREMIX 200 ML IV SCH (08:00)
[2016-10-15] MEDS ORDERED: POTASSIUM CHLORIDE 10 MEQ CONTROLLED RELEASE TAB PO ONE (09:15)
[2016-10-15] MEDS: PANTOPRAZOLE SOD 40 MG DELAYED RELEASE TAB PO SCH (09:17)
[2016-10-15] MEDS: SODIUM CHLOR 0.45% 1000 ML INJ 1,000 ML IV SCH ×2 (09:17→19:31)
[2016-10-15] MEDS: SODIUM CHLORIDE 0.9% FLUSH 10 ML FLUSH IV FLUSH SCH ×2 (09:17→19:32)
--- NOTE | 2016-10-15 09:46 | HHI.PR ---
Subjective Remarks Follow-up sepsis/UTI and now bacteremia 10/14/16-patient seen and examined, currently afebrile however now with 3 positive blood culture. BP 104/55 @13:00 10/15/16-patient seen and examined, no acute event overnight. Currently normotensive. +BM Objective Vitals Vital Signs Date Time Temp Pulse Resp B/P Pulse Ox O2 Delivery O2 Flow Rate FiO2 10/15/16 06:00 78 10/15/16 06:00 78 35 117/72 95 10/15/16 05:00 78 10/15/16 05:00 78 33 121/63 94 10/15/16 04:00 98.1 82 21 131/80 96 10/15/16 04:00 82 10/15/16 03:00 74 19 116/66 95 10/15/16 03:00 74 10/15/16 02:00 68 22 109/59 98 10/15/16 01:00 76 18 115/71 99 10/15/16 01:00 76 10/15/16 00:00 74 10/15/16 00:00 98.5 74 19 119/68 97 10/14/16 23:00 64 22 113/66 10/14/16 23:00 64 10/14/16 22:00 62 10/14/16 22:00 62 25 110/32 10/14/16 21:00 62 25 112/70 10/14/16 21:00 62 10/14/16 20:00 98.1 84 19 114/60 98 10/14/16 20:00 84 10/14/16 20:00 100 21 10/14/16 19:00 64 23 110/56 97 10/14/16 19:00 Room Air 10/14/16 19:00 64 10/14/16 15:00 68 22 109/59 98 10/14/16 11:00 98.2 62 28 102/54 97 I/O 10/14/16 10/14/16 10/14/16 10/15/16 10/15/16 10/15/16 07:00 15:00 23:00 07:00 15:00 23:00 Intake Total 808 ml 960 ml 2130 ml 800 ml Output Total 752 ml 1000 ml 552 ml 103 ml Balance 56 ml -40 ml 1578 ml 697 ml Intake Oral 48 ml 960 ml 480 ml IV Total 760 ml 1650 ml 800 ml Output Urine Total 750 ml 1000 ml 550 ml 100 ml Stool Total 2 ml 2 ml 3 ml Result Diagram: 10/15/1651410/15/16514 Objective Remarks GENERAL: NAD and sitting in a chair SKIN: Warm and dry. HEAD: Normocephalic. EYES: No scleral icterus. No injection or drainage. NECK: Supple, trachea midline. No JVD or lymphadenopathy. CARDIOVASCULAR: Regular rate and rhythm without murmurs, gallops, or rubs. RESPIRATORY: Breath sounds equal bilaterally. No accessory muscle use. GASTROINTESTINAL: Abdomen soft, non-tender, nondistended. MUSCULOSKELETAL: No cyanosis, or edema. BACK: Nontender without obvious deformity. No CVA tenderness. A/P Problem List: (1) Bacteremia due to Gram-positive bacteria ICD Code: A49.9 Status: Acute (2) Severe sepsis ICD Code: A41.9 Status: Acute (3) Urinary outflow obstruction ICD Code: N13.9 Status: Acute (4) Acute kidney injury superimposed on chronic kidney disease ICD Code: N17.9 Status: Acute (5) Leucocytosis ICD Code: D72.829 Status: Acute (6) Hypotension ICD Code: I95.9 Status: Acute (7) Febrile illness ICD Code: R50.9 Status: Acute Assessment and Plan 80-year-old man with Severe sepsis Patient meets criteria on admission with febrile illness, leukocytosis, tachypnea, tachycardia, hypotension, acute renal failure, urinary tract infection Currently on Rocephin, Bacteremia 3#4 blood culture Repeat blood culture Pending Appreciate input from infectious disease specialist Continue with Rocephin Acute renal failure superimposed on chronic kidney disease Secondary to outflow obstruction from malfunctioning Root Continue IV fluids however change to 1/2 NS Continue monitor renal function Avoid nephrotoxins Biometrics Head ff Urinary tract infection, complicated with sepsis, Root Await urine culture for appropriate antibiotics Continue on Rocephin Hypertension Continue Hold blood pressure medication Hypotension s/p Solu-Cortef Currently on Midodrine 5mg PO TID Dementia Continue home medications Hypokalemia Replace electrolyte with K 60Meq x1 now and monitor DVT prevention sequential compression devices Tristen Francisco MD October 15, 2016 09:46 Tristen Francisco MD October 15, 2016 09:46
--- NOTE | 2016-10-15 10:23 | RADHPO ---
EXAM DATE/TIME: 10/15/2016 07:56 [facility] COMPARISON: No previous studies available for comparison. INDICATIONS : Abdominal pain. Recurrent urinary tract infection, bacteremia. MEDICAL HISTORY : Alzheimer's Hernia, inguinal. Arthritis. HTN. Retension merrill. Cardiac disorders. Hiatal hernia. Ashley l failure. UTI. SURGICAL HISTORY : Appendectomy. ENCOUNTER: Initial ACUITY: 1 day PAIN SCORE: 0/10 LOCATION: Abdomen. MEASUREMENTS: LIVER: 16.0 cm length COMMON DUCT: 5 mm RIGHT KIDNEY: 12.4 x 7.4 x 7.5 cm LEFT KIDNEY: 11.5 x 4.7 x 6.7 cm SPLEEN: 15.5 cm length AORTA: 2.2cm maximal FINDINGS: Urinary bladder is minimally distended, however there does appear to be some findings worrisome for w all thickening. LIVER: Normal echotexture without focal lesion or ductal dilatation. COMMON DUCT: No intraluminal mass or stone visualized. GALLBLADDER: Contains no stones, demonstrates no wall thickening or pericholecystic fluid. PANCREAS: The visualized portions are within normal limits. RIGHT KIDNEY: No hydronephrosis, stone or mass. LEFT KIDNEY: Mild-moderate hydronephrosis. No evidence of stone or mass. SPLEEN: Mildly enlarged. Minimal perisplenic fluid. AORTA: Non aneurysmal. IVC: Within normal limits. CONCLUSION: Moderate left hydronephrosis. Splenomegaly. Abnormal appearance of the urinary bladder, however poorly evaluated secondary to nondistention. Harshad Mallory MD on October 15, 2016 at 9:33 Board Certified Radiologist. This report was verified electronically.
[2016-10-15] MEDS: cefTRIAXone INJ 1,000 MG in SODIUM CHLORIDE 0.9% INJ 100 ML IV SCH (19:31)
[2016-10-15] MEDS: DONEPEZIL HCL 5 MG TAB PO SCH (19:31)
[2016-10-15] MEDS ORDERED: PILL SPLITTER OTHER PRN (21:15)
[2016-10-16] VITALS (8 sets, daily range): BP systolic 116–164; BP diastolic 69–97; PULSE 76–94; RESP 18–22; TEMP 95.8–97.8; O2SAT 94–97
[2016-10-16] MEDS: CHLORHEXIDINE GLUCONATE 2 % 1 PACK (2 CLOTHS)(taper/protocol) TOPICAL SCH (04:00)
[2016-10-16] MEDS: SODIUM CHLOR 0.45% 1000 ML INJ 1,000 ML IV SCH ×2 (05:15→09:54)
[2016-10-16] MEDS ORDERED: MIDODRINE 5 MG TAB PO SCH (07:00)
[2016-10-16 08:52] LABS: POTASSIUM 3.4 MEQ/L (3.5-5.1)
[2016-10-16 08:55] LABS: BICARBONATE 24.3 MEQ/L (21.0-32.0); MAGNESIUM 1.6 MG/DL (1.5-2.5)
[2016-10-16] MEDS: SODIUM CHLORIDE 0.9% FLUSH 10 ML FLUSH IV FLUSH SCH ×2 (09:00→20:51)
[2016-10-16 09:01] LABS: AUTOMATED NEUTROPHIL # 7.7 TH/MM3 (1.8-7.7); BASOPHIL % 0.3 % (0.0-2.0); EOSINOPHIL # 0.1 TH/MM3 (0-0.4); EOSINOPHIL % 0.9 % (0.0-4.0); HEMATOCRIT 38.1 % (39.0-51.0); LYMPHOCYTE # 0.6 TH/MM3 (1.0-4.8); MEAN CELL VOLUME 89.5 FL (80.0-100.0); MEAN CORPUSCULAR HGB CONC 32.4 % (32.0-36.0); MONO % 5.1 % (0.0-8.0); NEUT % 86.7 % (16.0-70.0); PLATELET COUNT 257 TH/MM3 (150-450); RED BLOOD COUNT 4.25 MIL/MM3 (4.50-5.90); RED CELL DISTRIBUTION WIDTH 14.5 % (11.6-17.2); WHITE BLOOD COUNT 8.8 TH/MM3 (4.0-11.0)
[2016-10-16 09:03] LABS: HEMO FLAGS DIFF FINAL
[2016-10-16] MEDS: PANTOPRAZOLE SOD 40 MG DELAYED RELEASE TAB PO SCH (09:54)
--- NOTE | 2016-10-16 09:59 | HHI.PR ---
Subjective Remarks Follow-up severe sepsis and UTI. States he is feeling much better. Root catheter exchange in the emergency department. Discussed with RN, still having loose stools. Objective Vitals Vital Signs Date Time Temp Pulse Resp B/P Pulse Ox O2 Delivery O2 Flow Rate FiO2 10/16/16 08:21 97 21 10/16/16 03:45 96.4 90 20 130/84 97 10/16/16 00:00 97.8 82 22 121/69 94 10/16/16 00:00 82 10/15/16 20:30 96 21 10/15/16 20:00 97.4 74 22 146/81 95 10/15/16 20:00 74 10/15/16 20:00 Room Air 10/15/16 16:00 70 21 113/69 10/15/16 15:00 82 25 129/67 10/15/16 13:00 72 21 125/70 10/15/16 12:00 82 26 119/83 10/15/16 10:00 98 30 120/84 I/O 10/15/16 10/15/16 10/15/16 10/16/16 10/16/16 10/16/16 07:00 15:00 23:00 07:00 15:00 23:00 Intake Total 800 ml 1264 ml 580 ml 60 ml Output Total 103 ml 1200 ml 450 ml 350 ml Balance 697 ml 64 ml 130 ml -290 ml Intake Oral 480 ml 60 ml IV Total 800 ml 784 ml 580 ml Output Urine Total 100 ml 1200 ml 450 ml 350 ml Stool Total 3 ml # Bowel Movements 7 1 0 Result Diagram: 10/16/16 0820 10/16/16 0820 Imaging Last Impressions Abdomen Ultrasound 10/15/16 0000 Signed Impressions: Service Date/Time: Saturday, October 15, 2016 07:56 - CONCLUSION: Moderate left hydronephrosis. Splenomegaly. Abnormal appearance of the urinary bladder, however poorly evaluated secondary to nondistention. Harshad Mallory MD Head CT 10/12/161950 Signed Impressions: Service Date/Time: Wednesday, October 12, 2016 20:37 - CONCLUSION: Slight atrophic and small vessel ischemic changes without any evidence for acute hemorrhage or mass effect. Ramin Orourke MD Chest X-Ray 10/12/161950 Signed Impressions: Service Date/Time: Wednesday, October 12, 2016 20:32 - CONCLUSION: Tiny left pleural effusion. Ramin Orourke MD Objective Remarks GENERAL: NAD , well-developed and well-nourished SKIN: Warm and dry. HEAD: Normocephalic. EYES: No scleral icterus. No injection or drainage. NECK: Supple, trachea midline. No JVD or lymphadenopathy. CARDIOVASCULAR: Regular rate and rhythm without murmurs, gallops, or rubs. RESPIRATORY: Breath sounds equal bilaterally. No accessory muscle use. GASTROINTESTINAL: Abdomen soft, non-tender, nondistended. Root catheter in place MUSCULOSKELETAL: No cyanosis, or edema. BACK: Nontender without obvious deformity. No CVA tenderness. Procedures None A/P Problem List: (1) Bacteremia due to Gram-positive bacteria ICD Code: A49.9 Status: Acute (2) Severe sepsis ICD Code: A41.9 Status: Acute (3) Urinary outflow obstruction ICD Code: N13.9 Status: Acute (4) Acute kidney injury superimposed on chronic kidney disease ICD Code: N17.9 Status: Acute (5) Leucocytosis ICD Code: D72.829 Status: Resolved (6) Hypotension ICD Code: I95.9 Status: Resolved (7) Febrile illness ICD Code: R50.9 Status: Resolved Assessment and Plan 80-year-old man with Severe sepsis Patient meets criteria on admission with febrile illness, leukocytosis, tachypnea, tachycardia, hypotension, acute renal failure, urinary tract infection Currently on Rocephin Bacteremia Blood culture growing Proteus Repeat blood culture Pending, negative to date Continue with Rocephin 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 Root exchange in the emergency department Continue on Rocephin Hypertension Continue Hold blood pressure medication Hypotension s/p Solu-Cortef Improved discontinue Midrin Diarrhea -Check C. difficile and start Lactinex. Continue IV fluids Dementia Continue home medications Hypokalemia Replace electrolyte with K 20Meq x1 now and monitor DVT prevention sequential compression devices. Start subcutaneous heparin Discharge Planning Rehabilitation when ready Ilya Colbert MD October 16, 2016 09:59
[2016-10-16] MEDS ORDERED: POTASSIUM CHLORIDE 20 MEQ CONTROLLED RELEASE TAB PO ONE (10:00)
[2016-10-16] MEDS ORDERED: LACT PO (13:16)
--- NOTE | 2016-10-16 13:16 | HHI.DCPOC ---
Discharge Care Plan Diagnosis: (1) Bacteremia due to Gram-positive bacteria (2) Acute urinary retention (3) Hypotension Your Health Problems Are: Difficulty with ADL Exercise Tolerance Goals to Promote Your Health * To prevent worsening of your condition and complications * To maintain your health at the optimal level Directions to Meet Your Goals Take your medications as prescribed Follow your dietary instruction Follow activity as directed Keep your appointments as scheduled Take your immunizations and boosters as scheduled If your symptoms worsen call your PCP, if no PCP go to Urgent Care Center or Emergency Room Smoking is Dangerous to Your Health. Avoid second hand smoke Call the 24-hour hour crisis hotline for domestic abuse at Ilya Colbert MD October 16, 2016 13:16
--- NOTE | 2016-10-16 13:17 | HHI.FF ---
Face to Face Verification Diagnosis: (1) Acute urinary retention (2) Bacteremia due to Gram-positive bacteria (3) UTI (urinary tract infection) (4) Sepsis Physical Therapy Order: Evaluate and Treat, Improve ambulation, Strength and gait training Home Health Nursing Order: Medical education Signs/symptoms of disease process Nursing assessment with vital signs I have seen patient Mikal Mathew on 10/16/16. My clinical findings support the need for the requested home health care services because: Deconditioned w/ increased weakness I certify that my clinical findings support that this patient is homebound because: Unsafe to leave home unassisted Ilya Colbert MD October 16, 2016 13:17
[2016-10-16] MEDS: LACTOBACILLUS ACIDOPHILUS TAB PO SCH ×2 (13:36→17:04)
[2016-10-16] MEDS: HEPARIN SODIUM - SQ 10,000 UNITS/ML VIAL SQ SCH ×2 (13:37→20:49)
[2016-10-16 16:01] LABS: C. DIFF EPI 027 PRESUMPTIVE POSITIVE (NEGATIVE); C. DIFF TOXIN PCR POSITIVE (NEGATIVE)
[2016-10-16] MEDS: metroNIDAZOLE 500 MG TAB PO SCH ×2 (16:27→20:50)
[2016-10-16] MEDS: cefTRIAXone INJ 1,000 MG in SODIUM CHLORIDE 0.9% INJ 100 ML IV SCH (20:48)
[2016-10-16] MEDS: DONEPEZIL HCL 5 MG TAB PO SCH (20:50)
[2016-10-17] VITALS: BP 128/80; PULSE 74; RESP 18; TEMP 96.1; O2SAT 96
[2016-10-17] MEDS: SODIUM CHLOR 0.45% 1000 ML INJ 1,000 ML IV SCH ×3 (00:03→23:31)
[2016-10-17] MEDS: CHLORHEXIDINE GLUCONATE 2 % 1 PACK (2 CLOTHS)(taper/protocol) TOPICAL SCH (03:30)
[2016-10-17] MEDS: HEPARIN SODIUM - SQ 10,000 UNITS/ML VIAL SQ SCH ×3 (05:27→21:41)
[2016-10-17] MEDS: metroNIDAZOLE 500 MG TAB PO SCH ×3 (05:27→23:32)
[2016-10-17 06:37] LABS: POTASSIUM 3.4 MEQ/L (3.5-5.1)
[2016-10-17 07:21] LABS: BICARBONATE 22.4 MEQ/L (21.0-32.0); MAGNESIUM 1.5 MG/DL (1.5-2.5)
[2016-10-17 07:43] LABS: CALCIUM-PROTEIN CORRECTED 8.2 MG/DL (8.5-10.1)
[2016-10-17 08:00] VITALS: BP 155/89; PULSE 79; RESP 19; TEMP 97.6; O2SAT 96
[2016-10-17] MEDS: LACTOBACILLUS ACIDOPHILUS TAB PO SCH ×3 (08:45→17:28)
[2016-10-17] MEDS: PANTOPRAZOLE SOD 40 MG DELAYED RELEASE TAB PO SCH (08:46)
[2016-10-17] MEDS: SODIUM CHLORIDE 0.9% FLUSH 10 ML FLUSH IV FLUSH SCH ×2 (08:49→21:42)
[2016-10-17] MEDS ORDERED: POTASSIUM CHLORIDE 10 MEQ CONTROLLED RELEASE TAB PO ONE (09:00)
--- NOTE | 2016-10-17 09:52 | HHI.PR ---
Subjective Remarks Follow-up UTI and diarrhea. Positive for C. difficile. 3 loose stools overnight. Denies nausea and abdominal pain. Tolerating Flagyl. Discussed with RN Objective Vitals Vital Signs Date Time Temp Pulse Resp B/P Pulse Ox O2 Delivery O2 Flow Rate FiO2 10/17/16 08:00 97.6 79 19 155/89 96 10/17/16 00:00 96.1 74 18 128/80 96 10/16/16 20:00 97.5 76 18 116/78 96 10/16/16 19:45 96 21 10/16/16 16:00 96.0 82 20 164/96 96 10/16/16 12:00 95.8 89 20 118/71 96 10/16/16 10:00 Room Air 2.00 21 I/O 10/16/16 10/16/16 10/16/16 10/17/16 10/17/16 10/17/16 07:00 15:00 23:00 07:00 15:00 23:00 Intake Total 60 ml 800 ml 2170 ml Output Total 350 ml 950 ml 1800 ml Balance -290 ml -150 ml 370 ml Intake Oral 60 ml 800 ml 720 ml IV Total 1450 ml Output Urine Total 350 ml 950 ml 1800 ml # Bowel Movements 0 2 5 Result Diagram: 10/16/16 0820 10/17/16 0553 Imaging Last Impressions Abdomen Ultrasound 10/15/16 0000 Signed Impressions: Service Date/Time: Saturday, October 15, 2016 07:56 - CONCLUSION: Moderate left hydronephrosis. Splenomegaly. Abnormal appearance of the urinary bladder, however poorly evaluated secondary to nondistention. Harshad aMllory MD Head CT 10/12/161950 Signed Impressions: Service Date/Time: Wednesday, October 12, 2016 20:37 - CONCLUSION: Slight atrophic and small vessel ischemic changes without any evidence for acute hemorrhage or mass effect. Ramin Orourke MD Chest X-Ray 10/12/161950 Signed Impressions: Service Date/Time: Wednesday, October 12, 2016 20:32 - CONCLUSION: Tiny left pleural effusion. Ramin Orourke MD Objective Remarks GENERAL: NAD , well-developed and well-nourished SKIN: Warm and dry. HEAD: Normocephalic. EYES: No scleral icterus. No injection or drainage. NECK: Supple, trachea midline. No JVD or lymphadenopathy. CARDIOVASCULAR: Regular rate and rhythm without murmurs, gallops, or rubs. RESPIRATORY: Breath sounds equal bilaterally. No accessory muscle use. GASTROINTESTINAL: Abdomen soft, non-tender, nondistended. Root catheter in place MUSCULOSKELETAL: No cyanosis, or edema. BACK: Nontender without obvious deformity. No CVA tenderness. Procedures None A/P Problem List: (1) Bacteremia due to Gram-positive bacteria ICD Code: A49.9 Status: Acute (2) Severe sepsis ICD Code: A41.9 Status: Acute (3) Urinary outflow obstruction ICD Code: N13.9 Status: Acute (4) Acute kidney injury superimposed on chronic kidney disease ICD Code: N17.9 Status: Acute (5) Leucocytosis ICD Code: D72.829 Status: Resolved (6) Hypotension ICD Code: I95.9 Status: Resolved (7) Febrile illness ICD Code: R50.9 Status: Resolved Assessment and Plan 80-year-old man with Severe sepsis Patient meets criteria on admission with febrile illness, leukocytosis, tachypnea, tachycardia, hypotension, acute renal failure, urinary tract infection Currently on Rocephin Bacteremia Blood culture growing Proteus Repeat blood culture Pending, negative to date Continue with Rocephin C. difficile Still with diarrhea. Continue IV fluids, Lactinex and Flagyl. 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 Root exchange in the emergency department Continue on Rocephin Hypertension Continue Hold blood pressure medication secondary to ongoing diarrhea. As needed BP medications Hypotension s/p Solu-Cortef Improved discontinue Midrin Diarrhea -Check C. difficile and start Lactinex. Continue IV fluids Dementia Continue home medications Hypokalemia Replace electrolyte with K 30Meq x1 now and monitor DVT prevention sequential compression devices. Continue subcutaneous heparin Discharge Planning Not ready for discharge Ilya Colbert MD October 17, 2016 09:52
[2016-10-17] MEDS ORDERED: cloNIDine HCL 0.1 MG TAB PO PRN (10:00)
[2016-10-17 12:00] VITALS: BP 143/80; PULSE 69; RESP 17; TEMP 97.8; O2SAT 95
[2016-10-17] MEDS ORDERED: PHARMACY ORDERED LAB ONE (15:45)
[2016-10-17 16:00] VITALS: BP 139/76; PULSE 68; RESP 18; TEMP 97.6; O2SAT 96
[2016-10-17 20:14] VITALS: BP 129/77; PULSE 88; RESP 22; TEMP 97.7; O2SAT 96
[2016-10-17] MEDS: cefTRIAXone INJ 1,000 MG in SODIUM CHLORIDE 0.9% INJ 100 ML IV SCH (21:41)
[2016-10-17] MEDS: DONEPEZIL HCL 5 MG TAB PO SCH (21:41)
[2016-10-18 00:14] VITALS: BP 147/73; PULSE 74; RESP 14; TEMP 98; O2SAT 94
[2016-10-18] MEDS: HEPARIN SODIUM - SQ 10,000 UNITS/ML VIAL SQ SCH ×3 (05:52→21:39)
[2016-10-18] MEDS: metroNIDAZOLE 500 MG TAB PO SCH ×3 (05:52→21:39)
[2016-10-18 08:00] VITALS: BP 150/95; PULSE 91; RESP 18; TEMP 98; O2SAT 97
[2016-10-18 08:57] LABS: POTASSIUM 3.1 MEQ/L (3.5-5.1)
--- NOTE | 2016-10-18 08:57 | HHI.PR ---
Subjective Remarks Follow-up UTI and C. difficile. Patient has no complaints denies nausea and abdominal pain. Charted 7 BMs discussed with RN. ID also updated Objective Vitals Vital Signs Date Time Temp Pulse Resp B/P Pulse Ox O2 Delivery O2 Flow Rate FiO2 10/18/16 05:40 10/18/16 00:14 98.0 74 14 147/73 94 10/17/16 20:14 97.7 88 22 129/77 96 10/17/16 16:00 97.6 68 18 139/76 96 10/17/16 12:00 97.8 69 17 143/80 95 I/O 10/17/16 10/17/16 10/17/16 10/18/16 10/18/16 10/18/16 07:00 15:00 23:00 07:00 15:00 23:00 Intake Total 2170 ml Output Total 1800 ml 2400 ml 1550 ml 1050 ml Balance 370 ml -2400 ml -1550 ml -1050 ml Intake Oral 720 ml IV Total 1450 ml Output Urine Total 1800 ml 2400 ml 1550 ml 1050 ml # Bowel Movements 5 5 2 Result Diagram: 10/16/16 0820 10/17/16 0553 Imaging Last Impressions Abdomen Ultrasound 10/15/16 0000 Signed Impressions: Service Date/Time: Saturday, October 15, 2016 07:56 - CONCLUSION: Moderate left hydronephrosis. Splenomegaly. Abnormal appearance of the urinary bladder, however poorly evaluated secondary to nondistention. Harshad Mallory MD Head CT 10/12/161950 Signed Impressions: Service Date/Time: Wednesday, October 12, 2016 20:37 - CONCLUSION: Slight atrophic and small vessel ischemic changes without any evidence for acute hemorrhage or mass effect. Ramin Orourke MD Chest X-Ray 10/12/161950 Signed Impressions: Service Date/Time: Wednesday, October 12, 2016 20:32 - CONCLUSION: Tiny left pleural effusion. Ramin Orourke MD Objective Remarks GENERAL: NAD , well-developed and well-nourished. No signs of dehydration SKIN: Warm and dry. HEAD: Normocephalic. EYES: No scleral icterus. No injection or drainage. NECK: Supple, trachea midline. No JVD or lymphadenopathy. CARDIOVASCULAR: Regular rate and rhythm without murmurs, gallops, or rubs. RESPIRATORY: Breath sounds equal bilaterally. No accessory muscle use. GASTROINTESTINAL: Abdomen soft, non-tender, nondistended. Root catheter in place MUSCULOSKELETAL: No cyanosis, or edema. BACK: Nontender without obvious deformity. No CVA tenderness. Procedures None A/P Problem List: (1) Bacteremia due to Gram-positive bacteria ICD Code: A49.9 Status: Acute (2) Severe sepsis ICD Code: A41.9 Status: Acute (3) Urinary outflow obstruction ICD Code: N13.9 Status: Acute (4) Acute kidney injury superimposed on chronic kidney disease ICD Code: N17.9 Status: Acute (5) Leucocytosis ICD Code: D72.829 Status: Resolved (6) Hypotension ICD Code: I95.9 Status: Resolved (7) Febrile illness ICD Code: R50.9 Status: Resolved Assessment and Plan 80-year-old man with Severe sepsis Patient meets criteria on admission with febrile illness, leukocytosis, tachypnea, tachycardia, hypotension, acute renal failure, urinary tract infection Currently on Rocephin since October 12 Bacteremia Blood culture growing Proteus Repeat blood culture Pending, negative to date Continue with Rocephin C. difficile Still with diarrhea. Continue IV fluids, Lactinex and Flagyl started October 16. 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 Improving. Labs pending Secondary to outflow obstruction from malfunctioning Root Hypernatremic switch to 1/2 NS Continue monitor renal function Avoid nephrotoxins Urinary tract infection, complicated with sepsis, Root Await culture for appropriate antibiotics. Root exchange in the emergency department Continue on Rocephin Hypertension Continue Hold blood pressure medication secondary to ongoing diarrhea. As needed BP medications Hypotension s/p Solu-Cortef Improved discontinue Midrin Dementia Continue home medications Hypokalemia Replaced and monitor DVT prevention sequential compression devices. Continue subcutaneous heparin Discharge Planning Not ready for discharge still with ongoing diarrhea consider Julio bowden RN to update me today Ilya Colbert MD October 18, 2016 08:57
[2016-10-18] MEDS: SODIUM CHLORIDE 0.9% FLUSH 10 ML FLUSH IV FLUSH SCH ×2 (09:00→21:43)
[2016-10-18 09:10] LABS: BICARBONATE 23.2 MEQ/L (21.0-32.0); MAGNESIUM 1.6 MG/DL (1.5-2.5)
[2016-10-18] MEDS: LACTOBACILLUS ACIDOPHILUS TAB PO SCH ×3 (09:24→16:57)
[2016-10-18] MEDS: PANTOPRAZOLE SOD 40 MG DELAYED RELEASE TAB PO SCH (09:24)
[2016-10-18 09:25] LABS: CALCIUM-PROTEIN CORRECTED 8.3 MG/DL (8.5-10.1)
[2016-10-18] MEDS ORDERED: POTASSIUM CHLORIDE 20 MEQ CONTROLLED RELEASE TAB PO ONE (10:00)
--- NOTE | 2016-10-18 10:25 | HHI.IDPN ---
Subjective Subjective Remarks ID FU DR JC PT BEING TREATED FOR UTI REPORTED DIARRHEA + CDIFF TOX PCR PT STATES HE FEELS GREAT. HE IS HAVING MUCUS LIKE STOOLS SM BUT FREQUENT HE STATES THIS IS A NORM FOR HIM HE IS EATING WELL Antibiotics ROCEPHIN FLAGYL LACTINEX Allergies: Coded Allergies: Sulfa (Verified Allergy, Severe, Hives, 10/12/16) Review of Systems Constitutional Constitutional: Weakness Throat Throat: Sore Throat (DENIES) Pulmonary Respiratory: Coughing (NONE) Cardiology Cardiology: Chest Pain (NONE) GI/Abdomen GI/Abdominal Exam: Diarrhea, Abdominal Pain (NONE ) Objective . Vital Signs Date Time Temp Pulse Resp B/P Pulse Ox O2 Delivery O2 Flow Rate FiO2 10/18/16 08:00 98.0 91 18 150/95 97 10/18/16 05:40 10/18/16 00:14 98.0 74 14 147/73 94 10/17/16 20:14 97.7 88 22 129/77 96 10/17/16 16:00 97.6 68 18 139/76 96 10/17/16 12:00 97.8 69 17 143/80 95 10/17/16 10/17/16 10/18/16 15:00 23:00 07:00 Output Total 2400 ml 1550 ml 1050 ml Balance -2400 ml -1550 ml -1050 ml Output Urine Total 2400 ml 1550 ml 1050 ml # Bowel Movements 5 2 . Laboratory Tests Test 10/17/16 10/18/16 05:53 08:22 Sodium Level 145 MEQ/L 144 MEQ/L Potassium Level 3.4 MEQ/L 3.1 MEQ/L Chloride Level 114 MEQ/L 111 MEQ/L Carbon Dioxide Level 22.4 MEQ/L 23.2 MEQ/L Anion Gap 9 MEQ/L 10 MEQ/L Blood Urea Nitrogen 24 MG/DL 16 MG/DL Creatinine 1.50 MG/DL 1.30 MG/DL Estimat Glomerular Filtration 45 ML/MIN 53 ML/MIN Rate Random Glucose 88 MG/DL 93 MG/DL Calcium Level 7.3 MG/DL 7.4 MG/DL Protein Corrected Calcium 8.2 MG/DL 8.3 MG/DL Magnesium Level 1.5 MG/DL 1.6 MG/DL Total Protein 5.5 GM/DL 5.4 GM/DL Physical Exam PT AWAKE IN NAD PERRL NS NO JVD CHEST DIMISHED BUT CLEAR CARDIAC RRR ABD SOFT ACTIVE NT EXT: NO EDEMA NO REDNESS Assessment & Plan Diagnosis: (1) UTI (urinary tract infection) 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 difficile colitis Plan: CLINICALLY IMPROVING ON FLAGYL AND LACTINEX COMPLETE 14D COURSE IF PT REGRESSED START PO VANCO FU 1-2 WEEKS Problem Qualifiers (1) UTI (urinary tract infection): Qualified Code: T83.511D - Urinary tract infection associated with indwelling urethral catheter, subsequent encounter Justine Ortiz October 18, 2016 10:25
[2016-10-18] MEDS: SODIUM CHLOR 0.45% 1000 ML INJ 1,000 ML IV SCH (11:08)
[2016-10-18 12:00] VITALS: BP 140/73; PULSE 100; RESP 18; TEMP 97; O2SAT 98
[2016-10-18 16:00] VITALS: BP 138/78; PULSE 88; RESP 18; O2SAT 96
[2016-10-18] MEDS ORDERED: METR-1 PO (16:19)
[2016-10-18 20:50] VITALS: BP 128/71; PULSE 87; RESP 18; TEMP 97.6; O2SAT 93
[2016-10-18] MEDS: DONEPEZIL HCL 5 MG TAB PO SCH (21:39)
[2016-10-18] MEDS: METOPROLOL TARTRATE 25 MG TAB PO SCH (21:39)
[2016-10-19 00:52] VITALS: BP 117/68; PULSE 61; RESP 12; TEMP 98.7; O2SAT 96
[2016-10-19] MEDS: metroNIDAZOLE 500 MG TAB PO SCH ×3 (05:48→21:49)
[2016-10-19] MEDS: HEPARIN SODIUM - SQ 10,000 UNITS/ML VIAL SQ SCH ×3 (05:49→21:48)
[2016-10-19 08:00] VITALS: BP 150/70; PULSE 80; RESP 18; TEMP 98.7; O2SAT 95
[2016-10-19 09:15] LABS: BICARBONATE 41.8 MEQ/L (21.0-32.0); MAGNESIUM 1.7 MG/DL (1.5-2.5); POTASSIUM 4.6 MEQ/L (3.5-5.1)
--- NOTE | 2016-10-19 09:40 | HHI.PR ---
Subjective Remarks Follow-up C. difficile. Patient doing okay having semi-formed stools. Optimal oral intake. Agrees with rehabilitation if indicated. Discussed with case management and RN, patient will be ambulated today Objective Vitals Vital Signs Date Time Temp Pulse Resp B/P Pulse Ox O2 Delivery O2 Flow Rate FiO2 10/19/16 08:00 98.7 80 18 150/70 95 10/19/16 00:52 98.7 61 12 117/68 96 10/18/16 20:50 97.6 87 18 128/71 93 10/18/16 16:00 88 18 138/78 96 10/18/16 12:00 97.0 100 18 140/73 98 I/O 10/18/16 10/18/16 10/18/16 10/19/16 10/19/16 10/19/16 07:00 15:00 23:00 07:00 15:00 23:00 Intake Total 540 ml 480 ml Output Total 1050 ml 1403 ml 1900 ml 2000 ml Balance -1050 ml -863 ml -1900 ml -1520 ml Intake Oral 540 ml IV Total 480 ml Output Urine Total 1050 ml 1400 ml 1900 ml 2000 ml Stool Total 3 ml # Voids 1 # Bowel Movements 2 Result Diagram: 10/16/16 0820 10/19/16 0708 Imaging Last Impressions Abdomen Ultrasound 10/15/16 0000 Signed Impressions: Service Date/Time: Saturday, October 15, 2016 07:56 - CONCLUSION: Moderate left hydronephrosis. Splenomegaly. Abnormal appearance of the urinary bladder, however poorly evaluated secondary to nondistention. Harsahd Mallory MD Head CT 10/12/161950 Signed Impressions: Service Date/Time: Wednesday, October 12, 2016 20:37 - CONCLUSION: Slight atrophic and small vessel ischemic changes without any evidence for acute hemorrhage or mass effect. Ramin Orourke MD Chest X-Ray 10/12/161950 Signed Impressions: Service Date/Time: Wednesday, October 12, 2016 20:32 - CONCLUSION: Tiny left pleural effusion. Ramin Orourke MD Objective Remarks GENERAL: NAD , well-developed and well-nourished. No signs of dehydration SKIN: Warm and dry. HEAD: Normocephalic. EYES: No scleral icterus. No injection or drainage. NECK: Supple, trachea midline. No JVD or lymphadenopathy. CARDIOVASCULAR: Regular rate and rhythm without murmurs, gallops, or rubs. RESPIRATORY: Breath sounds equal bilaterally. No accessory muscle use. GASTROINTESTINAL: Abdomen soft, non-tender, nondistended. Root catheter in place MUSCULOSKELETAL: No cyanosis, or edema. BACK: Nontender without obvious deformity. No CVA tenderness. Neuro exam: Alert and answering questions appropriately. Nonfocal Procedures None A/P Problem List: (1) Bacteremia due to Gram-positive bacteria ICD Code: A49.9 Status: Acute (2) Severe sepsis ICD Code: A41.9 Status: Acute (3) Urinary outflow obstruction ICD Code: N13.9 Status: Acute (4) Acute kidney injury superimposed on chronic kidney disease ICD Code: N17.9 Status: Acute (5) Leucocytosis ICD Code: D72.829 Status: Resolved (6) Hypotension ICD Code: I95.9 Status: Resolved (7) Febrile illness ICD Code: R50.9 Status: Resolved Assessment and Plan 80-year-old man with Severe sepsis Patient meets criteria on admission with febrile illness, leukocytosis, tachypnea, tachycardia, hypotension, acute renal failure, urinary tract infection Resolved status post Rocephin Bacteremia Blood culture growing Proteus Repeat blood culture negative to date Status post Rocephin C. difficile Improved discontinue IV fluids. Continue Lactinex and Flagyl started October 16 total of 2 weeks. 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 Improved Secondary to outflow obstruction from malfunctioning Root Hypernatremic switched to 1/2 NS which already has been discontinued Continue monitor renal function Avoid nephrotoxins Urinary tract infection, complicated with sepsis, Root Await culture for appropriate antibiotics. Root exchange in the emergency department Status post Rocephin Hypertension Continue Lopressor as tolerated. As needed BP medications Hypotension s/p Solu-Cortef Improved discontinue Midrin Dementia Continue home medications Hypokalemia. Resolved Replaced and monitor DVT prevention sequential compression devices. Continue subcutaneous heparin Discharge Planning Stable for discharge. Patient will be ambulated today to determine if patient can safely go home versus rehabilitation Ilya Colbert MD October 19, 2016 09:40
[2016-10-19] MEDS: SODIUM CHLORIDE 0.9% FLUSH 10 ML FLUSH IV FLUSH SCH ×2 (09:45→21:49)
[2016-10-19] MEDS: PANTOPRAZOLE SOD 40 MG DELAYED RELEASE TAB PO SCH (09:45)
[2016-10-19] MEDS: LACTOBACILLUS ACIDOPHILUS TAB PO SCH ×3 (09:45→17:32)
[2016-10-19] MEDS: METOPROLOL TARTRATE 25 MG TAB PO SCH ×2 (09:45→21:49)
--- NOTE | 2016-10-19 09:58 | HHI.DS ---
Discharge Summary Admission Date Oct 12, 2016 at 21:54 Discharge Date: October 21, 2016 Admitting Diagnosis JOSE M, Urosepsis (1) Bacteremia due to Gram-positive bacteria ICD Code: A49.9 Diagnosis: Principal (2) Severe sepsis ICD Code: A41.9 Diagnosis: Principal (3) Urinary outflow obstruction ICD Code: N13.9 Diagnosis: Principal (4) Acute kidney injury superimposed on chronic kidney disease ICD Code: N17.9 Diagnosis: Principal (5) Leucocytosis ICD Code: D72.829 Diagnosis: Principal (6) Hypotension ICD Code: I95.9 Diagnosis: Principal (7) Febrile illness ICD Code: R50.9 Diagnosis: Principal Procedures None Brief History - From Admission 80-year-old male with known history of dementia, hypertension, coronary disease, recurrent UTI, chronic kidney disease stage IIIII who presented to hospital with family because of weakness. Patient himself does have history of dementia and he was unable to give any accurate information white he is here. Information was taken from medical records and nursing staff. As indicated the patient was brought to the hospital by his because he had a very weak and was unable to get off the couch. The patient was brought to emergency department for evaluation, patient found to have severe sepsis with leukocytosis, febrile illness, tachycardia, tachypnea, low blood pressure. Patient has indwelling Root and it was indicated that the states that it had been working. However the Root was changed and 1000 cc of urine was removed. Patient had acute renal failure. Recent admission which is likely due to outlet obstruction from malfunctioning Root. At the time evaluating the patient he is resting comfortable in bed. He does have low blood pressure this time with map between 6065. He denies any complaints or any pain. Renal functions are improving. Patient remains in ICU at this time for further management. CBC/BMP: 10/16/16 0820 10/19/16 0708 Significant Findings Laboratory Tests Test 10/16/16 10/17/16 10/18/16 10/19/16 10:25 05:53 08:22 07:08 Stool C. difficile Toxin (PCR) POSITIVE (NEGATIVE) Stl C. difficile Toxin PRESUMPTIVE Epiderm 027 POSITIVE (NEGATIVE) Potassium Level 3.4 MEQ/L 3.1 MEQ/L (3.5-5.1) (3.5-5.1) Chloride Level 114 MEQ/L 111 MEQ/L 89 MEQ/L (98-107) (98-107) (98-107) Blood Urea Nitrogen 24 MG/DL (7-18) 22 MG/DL (7-18) Creatinine 1.50 MG/DL 0.57 MG/DL (0.60-1.30) (0.60-1.30) Estimat Glomerular Filtration 45 ML/MIN (>89) 53 ML/MIN (>89) Rate Calcium Level 7.3 MG/DL 7.4 MG/DL (8.5-10.1) (8.5-10.1) Protein Corrected Calcium 8.2 MG/DL 8.3 MG/DL (8.5-10.1) (8.5-10.1) Total Protein 5.5 GM/DL 5.4 GM/DL (6.4-8.2) (6.4-8.2) Carbon Dioxide Level 41.8 MEQ/L (21.0-32.0) Random Glucose 135 MG/DL (74-106) Imaging Last Impressions Abdomen Ultrasound 10/15/16 0000 Signed Impressions: Service Date/Time: Saturday, October 15, 2016 07:56 - CONCLUSION: Moderate left hydronephrosis. Splenomegaly. Abnormal appearance of the urinary bladder, however poorly evaluated secondary to nondistention. Harshad Mallory MD Head CT 10/12/161950 Signed Impressions: Service Date/Time: Wednesday, October 12, 2016 20:37 - CONCLUSION: Slight atrophic and small vessel ischemic changes without any evidence for acute hemorrhage or mass effect. Ramin Orourke MD Chest X-Ray 10/12/161950 Signed Impressions: Service Date/Time: Wednesday, October 12, 2016 20:32 - CONCLUSION: Tiny left pleural effusion. Ramin Orourke MD PE at Discharge GENERAL: NAD , well-developed and well-nourished. No signs of dehydration SKIN: Warm and dry. HEAD: Normocephalic. EYES: No scleral icterus. No injection or drainage. NECK: Supple, trachea midline. No JVD or lymphadenopathy. CARDIOVASCULAR: Regular rate and rhythm without murmurs, gallops, or rubs. RESPIRATORY: Breath sounds equal bilaterally. No accessory muscle use. GASTROINTESTINAL: Abdomen soft, non-tender, nondistended. Root catheter in place MUSCULOSKELETAL: No cyanosis. RLE distal pitting edema BACK: Nontender without obvious deformity. No CVA tenderness. Neuro exam: Alert and answering questions appropriately. Nonfocal Hospital Course 80-year-old man with Severe sepsis Patient meets criteria on admission with febrile illness, leukocytosis, tachypnea, tachycardia, hypotension, acute renal failure, urinary tract infection Resolved status post Rocephin Bacteremia Blood culture growing Proteus Repeat blood culture negative to date Status post Rocephin C. difficile Improved discontinue IV fluids. Continue Lactinex and Flagyl started October 16 total of 2 weeks. 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 Improved Secondary to outflow obstruction from malfunctioning Root Hypernatremic switched to 1/2 NS which already has been discontinued Continue monitor renal function Avoid nephrotoxins Urinary tract infection, complicated with sepsis and chronic indwelling catheter Await culture for appropriate antibiotics. Root exchange in the emergency department Status post Rocephin --Root care Hypertension Continue Lopressor as tolerated. As needed BP medications Hypotension s/p Solu-Cortef Improved discontinue Midrin Dementia Continue home medications Hypokalemia. Resolved Replaced and monitor RLE pitting edema. Denies leg pain, chest pain and shortness of breath. No signs of heart failure. Check Doppler DVT prevention sequential compression devices. Continue subcutaneous heparin Pt Condition on Discharge: Stable Discharge Disposition: Discharge to SNF Discharge Time: > 30 minutes Discharge Instructions DIET: Follow Instructions for: Heart Healthy Diet Activities you can perform: Regular-No Restrictions Activities to Avoid: Driving Follow up Referrals: PCP Follow-up - 1 Week New Medications: Lactobacillus Acidophilus (Acidophilus/l-Sporogenes) 1 Tab Tab 1 TAB PO TID Bowel Management #45 TAB Metronidazole (Flagyl) 500 Mg Tab 500 MG PO Q8HR Infection #33 TAB Continued Medications: Donepezil (Donepezil) 5 Mg Tab 5 MG PO HS Dementia #30 Ref 0 TAB Famotidine (Famotidine) 10 Mg Tab Unknown Dose PO BID #60 Ref 0 TAB Metoprolol Tartrate (Metoprolol Tartrate) 25 Mg Tab Unknown Dose PO DAILY #30 Ref 0 TAB Ilya Colbert MD October 19, 2016 09:58
[2016-10-19 12:00] VITALS: BP 148/70; PULSE 80; RESP 18; TEMP 98; O2SAT 96
[2016-10-19 16:00] VITALS: BP 140/72; PULSE 80; RESP 18; TEMP 98; O2SAT 96
[2016-10-19 20:00] VITALS: BP 116/84; PULSE 73; RESP 18; TEMP 98; O2SAT 97
[2016-10-19] MEDS: DONEPEZIL HCL 5 MG TAB PO SCH (21:49)
[2016-10-20] VITALS: BP 134/81; PULSE 58; RESP 18; TEMP 98.2; O2SAT 97
[2016-10-20] MEDS: HEPARIN SODIUM - SQ 10,000 UNITS/ML VIAL SQ SCH ×3 (05:46→21:51)
[2016-10-20] MEDS: metroNIDAZOLE 500 MG TAB PO SCH ×3 (05:46→21:50)
[2016-10-20 08:00] VITALS: BP 109/76; PULSE 76; RESP 20; TEMP 97.1; O2SAT 95
[2016-10-20] MEDS: METOPROLOL TARTRATE 25 MG TAB PO SCH ×3 (09:00→21:51)
--- NOTE | 2016-10-20 09:57 | HHI.PR ---
Subjective Remarks Follow-up C. difficile. Formed BM today. Patient has been discharged pending SNF acceptance. Discussed with bottle caser, RN and physical therapy who will reevaluate patient today Objective Vitals Vital Signs Date Time Temp Pulse Resp B/P Pulse Ox O2 Delivery O2 Flow Rate FiO2 10/20/16 08:00 97.1 76 20 109/76 95 10/20/16 00:00 98.2 58 18 134/81 97 10/19/16 20:00 98.0 73 18 116/84 97 10/19/16 16:00 98.0 80 18 140/72 96 10/19/16 12:00 98.0 80 18 148/70 96 I/O 10/19/16 10/19/16 10/19/16 10/20/16 10/20/16 10/20/16 06:59 14:59 22:59 06:59 14:59 22:59 Intake Total 480 ml 240 ml 840 ml 360 ml Output Total 2000 ml 2 ml 1827 ml 625 ml Balance -1520 ml 238 ml -987 ml -265 ml Intake Oral 240 ml 840 ml 360 ml IV Total 480 ml Output Urine Total 2000 ml 1825 ml 625 ml Stool Total 2 ml 2 ml # Voids 1 # Bowel Movements 2 Result Diagram: 10/16/16 0820 10/19/16 0708 Imaging Last Impressions Abdomen Ultrasound 10/15/16 0000 Signed Impressions: Service Date/Time: Saturday, October 15, 2016 07:56 - CONCLUSION: Moderate left hydronephrosis. Splenomegaly. Abnormal appearance of the urinary bladder, however poorly evaluated secondary to nondistention. Harshad Mallory MD Head CT 10/12/161950 Signed Impressions: Service Date/Time: Wednesday, October 12, 2016 20:37 - CONCLUSION: Slight atrophic and small vessel ischemic changes without any evidence for acute hemorrhage or mass effect. Ramin Orourke MD Chest X-Ray 10/12/161950 Signed Impressions: Service Date/Time: Wednesday, October 12, 2016 20:32 - CONCLUSION: Tiny left pleural effusion. Ramin Orourke MD Objective Remarks GENERAL: NAD , well-developed and well-nourished. No signs of dehydration SKIN: Warm and dry. HEAD: Normocephalic. EYES: No scleral icterus. No injection or drainage. NECK: Supple, trachea midline. No JVD or lymphadenopathy. CARDIOVASCULAR: Regular rate and rhythm without murmurs, gallops, or rubs. RESPIRATORY: Breath sounds equal bilaterally. No accessory muscle use. GASTROINTESTINAL: Abdomen soft, non-tender, nondistended. Root catheter in place MUSCULOSKELETAL: No cyanosis, or edema. BACK: Nontender without obvious deformity. No CVA tenderness. Neuro exam: Alert and answering questions appropriately. Procedures None A/P Problem List: (1) Bacteremia due to Gram-positive bacteria ICD Code: A49.9 Status: Acute (2) Severe sepsis ICD Code: A41.9 Status: Acute (3) Urinary outflow obstruction ICD Code: N13.9 Status: Acute (4) Acute kidney injury superimposed on chronic kidney disease ICD Code: N17.9 Status: Acute (5) Leucocytosis ICD Code: D72.829 Status: Resolved (6) Hypotension ICD Code: I95.9 Status: Resolved (7) Febrile illness ICD Code: R50.9 Status: Resolved Assessment and Plan 80-year-old man with Severe sepsis Patient meets criteria on admission with febrile illness, leukocytosis, tachypnea, tachycardia, hypotension, acute renal failure, urinary tract infection Resolved status post Rocephin Bacteremia Blood culture growing Proteus Repeat blood culture negative to date Status post Rocephin C. difficile Improved discontinue IV fluids. Continue Lactinex and Flagyl started October 16 total of 2 weeks. 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 Improved Secondary to outflow obstruction from malfunctioning Root Hypernatremic switched to 1/2 NS which already has been discontinued Continue monitor renal function Avoid nephrotoxins Urinary tract infection, complicated with sepsis and chronic indwelling catheter Await culture for appropriate antibiotics. Root exchange in the emergency department Status post Rocephin --Root care Hypertension Continue Lopressor as tolerated. As needed BP medications Hypotension s/p Solu-Cortef Improved discontinue Midrin Dementia Continue home medications Hypokalemia. Resolved Replaced and monitor DVT prevention sequential compression devices. Continue subcutaneous heparin Discharge Planning Stable for discharge pending SNF acceptance Ilya Colbert MD October 20, 2016 09:57
[2016-10-20] MEDS: LACTOBACILLUS ACIDOPHILUS TAB PO SCH ×3 (09:59→17:14)
[2016-10-20] MEDS: PANTOPRAZOLE SOD 40 MG DELAYED RELEASE TAB PO SCH (09:59)
[2016-10-20] MEDS: SODIUM CHLORIDE 0.9% FLUSH 10 ML FLUSH IV FLUSH SCH ×2 (10:00→21:51)
[2016-10-20 12:00] VITALS: BP 113/65; PULSE 89; RESP 20; TEMP 97.8; O2SAT 95
[2016-10-20 16:00] VITALS: BP 114/71; PULSE 89; RESP 18; TEMP 98.2; O2SAT 95
[2016-10-20 19:00] VITALS: BP 117/77; PULSE 75; RESP 16; TEMP 98; O2SAT 96
[2016-10-20] MEDS: DONEPEZIL HCL 5 MG TAB PO SCH (21:51)
[2016-10-21] VITALS: BP 106/64; PULSE 72; RESP 20; TEMP 97.4; O2SAT 95
[2016-10-21] MEDS: metroNIDAZOLE 500 MG TAB PO SCH ×2 (06:20→13:51)
[2016-10-21] MEDS: HEPARIN SODIUM - SQ 10,000 UNITS/ML VIAL SQ SCH ×2 (06:20→13:51)
[2016-10-21 08:00] VITALS: BP 113/74; PULSE 74; RESP 20; TEMP 97.6; O2SAT 97
[2016-10-21] MEDS: LACTOBACILLUS ACIDOPHILUS TAB PO SCH ×2 (09:52→13:51)
[2016-10-21] MEDS: PANTOPRAZOLE SOD 40 MG DELAYED RELEASE TAB PO SCH (09:52)
[2016-10-21] MEDS: SODIUM CHLORIDE 0.9% FLUSH 10 ML FLUSH IV FLUSH SCH (09:52)
[2016-10-21] MEDS: METOPROLOL TARTRATE 25 MG TAB PO SCH (09:52)
--- NOTE | 2016-10-21 10:49 | HHI.PR ---
Subjective Remarks Follow-up diarrhea. 2 BM yesterday one was loose. No complaints. Usual RLE swelling denies leg pain, chest pain and shortness of breath. Discussed with RN , physical therapy and case management. Patient will be discharged to rehabilitation if Doppler negative Objective Vitals Vital Signs Date Time Temp Pulse Resp B/P Pulse Ox O2 Delivery O2 Flow Rate FiO2 10/21/16 08:00 97.6 74 20 113/74 97 10/21/16 00:00 97.4 72 20 106/64 95 10/20/16 19:00 98.0 75 16 117/77 96 10/20/16 16:00 98.2 89 18 114/71 95 10/20/16 12:00 97.8 89 20 113/65 95 I/O 10/20/16 10/20/16 10/20/16 10/21/16 10/21/16 10/21/16 07:00 15:00 23:00 07:00 15:00 23:00 Intake Total 360 ml 750 ml 240 ml Output Total 625 ml 1000 ml 750 ml 675 ml Balance -265 ml -250 ml -510 ml -675 ml Intake Oral 360 ml 750 ml 240 ml Output Urine Total 625 ml 1000 ml 750 ml 675 ml # Bowel Movements 3 0 Result Diagram: 10/19/16 0708 Imaging Last Impressions Abdomen Ultrasound 10/15/16 0000 Signed Impressions: Service Date/Time: Saturday, October 15, 2016 07:56 - CONCLUSION: Moderate left hydronephrosis. Splenomegaly. Abnormal appearance of the urinary bladder, however poorly evaluated secondary to nondistention. Harshad Mallory MD Head CT 10/12/161950 Signed Impressions: Service Date/Time: Wednesday, October 12, 2016 20:37 - CONCLUSION: Slight atrophic and small vessel ischemic changes without any evidence for acute hemorrhage or mass effect. Ramin Orourke MD Chest X-Ray 10/12/161950 Signed Impressions: Service Date/Time: Wednesday, October 12, 2016 20:32 - CONCLUSION: Tiny left pleural effusion. Ramin Orourke MD Objective Remarks GENERAL: NAD , well-developed and well-nourished. No signs of dehydration SKIN: Warm and dry. HEAD: Normocephalic. EYES: No scleral icterus. No injection or drainage. NECK: Supple, trachea midline. No JVD or lymphadenopathy. CARDIOVASCULAR: Regular rate and rhythm without murmurs, gallops, or rubs. RESPIRATORY: Breath sounds equal bilaterally. No accessory muscle use. GASTROINTESTINAL: Abdomen soft, non-tender, nondistended. Root catheter in place MUSCULOSKELETAL: No cyanosis. RLE distal pitting edema no tenderness BACK: Nontender without obvious deformity. No CVA tenderness. Neuro exam: Alert and answering questions appropriately. Procedures None A/P Problem List: (1) Bacteremia due to Gram-positive bacteria ICD Code: A49.9 Status: Acute (2) Severe sepsis ICD Code: A41.9 Status: Acute (3) Urinary outflow obstruction ICD Code: N13.9 Status: Acute (4) Acute kidney injury superimposed on chronic kidney disease ICD Code: N17.9 Status: Acute (5) Leucocytosis ICD Code: D72.829 Status: Resolved (6) Hypotension ICD Code: I95.9 Status: Resolved (7) Febrile illness ICD Code: R50.9 Status: Resolved Assessment and Plan 80-year-old man with Severe sepsis Patient meets criteria on admission with febrile illness, leukocytosis, tachypnea, tachycardia, hypotension, acute renal failure, urinary tract infection Resolved status post Rocephin Bacteremia Blood culture growing Proteus Repeat blood culture negative to date Status post Rocephin C. difficile Improved discontinue IV fluids. Continue Lactinex and Flagyl started October 16 total of 2 weeks. 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 Improved Secondary to outflow obstruction from malfunctioning Root Hypernatremic switched to 1/2 NS which already has been discontinued Continue monitor renal function Avoid nephrotoxins Urinary tract infection, complicated with sepsis and chronic indwelling catheter Await culture for appropriate antibiotics. Root exchange in the emergency department Status post Rocephin --Root care Hypertension Continue Lopressor as tolerated. As needed BP medications Hypotension s/p Solu-Cortef Improved discontinue Midrin Dementia Continue home medications Hypokalemia. Resolved Replaced and monitor RLE pitting edema. Denies leg pain, chest pain and shortness of breath. No signs of heart failure. Check Doppler DVT prevention sequential compression devices. Continue subcutaneous heparin Discharge Planning Discharge to SNF pending Doppler Ilya Colbert MD October 21, 2016 10:49
[2016-10-21 12:00] VITALS: BP 113/68; PULSE 70; RESP 20; TEMP 97.5; O2SAT 96
--- NOTE | 2016-10-21 12:10 | RADHPO ---
EXAM DATE/TIME: 10/21/2016 11:29 [facility] COMPARISON: No previous studies available for comparison. INDICATIONS : Right leg pain. MEDICAL HISTORY : Alzheimer's hernia, inguinal. arthritis. htn. retension merrill. cardiac disorders. hiatal hernia. brenda al failure. uti. SURGICAL HISTORY : Appendectomy. ENCOUNTER: Initial ACUITY: 1 day PAIN SCORE: 2/10 LOCATION: Right leg. TECHNIQUE: Venous ultrasound of the leg was performed from the inguinal ligament to the proximal calf. Real-lorraine e, color Doppler and spectral tracing, compression and augmentation techniques were used. FINDINGS: There is normal compressibility of the deep venous system from the inguinal region to the proximal ca lf. No echogenic clot is seen in the lumen of the common femoral, femoral, popliteal, and posterior tibial veins. There is a normal response of the venous system to proximal and distal augmentation an d respiration. CONCLUSION: No evidence of right lower extremity DVT. Arnold Monreal MD on October 21, 2016 at 12:08 Board Certified Radiologist. This report was verified electronically.
== END 2016-10-21 16:12 | DRG 698 ==
LOC: PHED 19:20 → PHEDA 21:54 → PHICU 10-13 01:33 → PH3B 10-16 03:27
PROVIDERS: ADMIT Hospitalist; ATTEND Hospitalist
PROC: 0T2BX0Z Change Drainage Device in Bladder, External Approach (ICD-10-PCS; principal; 2016-10-12)
DX: T83.511A Infection and inflammatory reaction due to indwelling urethral catheter, initial encounter (principal); A41.9 Sepsis, unspecified organism; R65.20 Severe sepsis without septic shock; N17.9 Acute kidney failure, unspecified; E87.0 Hyperosmolality and hypernatremia; N18.3 Chronic kidney disease, stage 3 (moderate); A04.7 Enterocolitis due to Clostridium difficile; N39.0 Urinary tract infection, site not specified; G30.9 Alzheimer's disease, unspecified; F02.80 Dementia in other diseases classified elsewhere, unspecified severity, without behavioral disturbance, psychotic disturbance, mood disturbance, and anxiety; M19.90 Unspecified osteoarthritis, unspecified site; H91.91 Unspecified hearing loss, right ear; K40.90 Unilateral inguinal hernia, without obstruction or gangrene, not specified as recurrent; Z96.612 Presence of left artificial shoulder joint; Z96.651 Presence of right artificial knee joint; Z88.2 Allergy status to sulfonamides; I12.9 Hypertensive chronic kidney disease with stage 1 through stage 4 chronic kidney disease, or unspecified chronic kidney disease; I25.10 Atherosclerotic heart disease of native coronary artery without angina pectoris; Y84.6 Urinary catheterization as the cause of abnormal reaction of the patient, or of later complication, without mention of misadventure at the time of the procedure; Z87.440 Personal history of urinary (tract) infections; N13.9 Obstructive and reflux uropathy, unspecified; E87.6 Hypokalemia
CPT/HCPCS: 51702; 70450; 71010; 76700; 80048; 80053; 81001; 82550; 83605; 83735; 84155; 84443; 84484; 85025; 85610; 85730; 87040; 87077; 87086; 87186; 87205; 87493; 87641; 93005; 93971; J0696; J0744; J1644; J1720; J3370; J7030; J7050

== ENCOUNTER 2016-11-28 13:10 | Emergency (ER) | payer MEDICARE ==
[~2016-11-28] VITALS: Ht 170.2 cm; Wt 64.4 kg
[~2016-11-28 13:10] MED LIST changes: -AMLO5 PO; -CIPR250T2 PO; +DILT30TA PO; +FAMO1TAB30 PO; +LACT PO; +LISI2.5T3 PO; +METO25TA3 PO; +METR-1 PO
[2016-11-28 13:19] VITALS: BP 111/70; PULSE 67; RESP 16; TEMP 97.9; O2SAT 96
[2016-11-28] MEDS ORDERED: SODIUM CHLORIDE 0.9% FLUSH 10 ML FLUSH IVF PRN (13:30)
[2016-11-28] MEDS ORDERED: DILT-60 PO (13:38)
[2016-11-28] MEDS ORDERED: METO25TA3 PO (13:38)
[2016-11-28] MEDS ORDERED: FAMO20TA2 PO (13:38)
--- NOTE | 2016-11-28 13:39 | PD ---
HPI Chief Complaint: Complaint Time Seen by Provider: 13:28 Travel History International Travel<30 days: No Contact w/Intl Traveler<30days: No History of Present Illness HPI PATIENT HAS INDWELLING MERRILL CATHETER, TODAY NOTED BLOOD IN LEG BAG, PER PT AND HE IS NOT ON ANY BLOOD THINNERS, MERRILL PLACED FOR URINARY RETENTION...BLOOD NOTED ON MERRILL BAG WAS MINIMAL AND NOTED TODAY ONLY PFSH Past Medical History Alzheimer's Disease: Yes ("beginning stages" ) Arthritis: Yes (right knee- limps) Autoimmune Disease: No Heart Rhythm Problems: No Cancer: No Cardiovascular Problems: Yes High Cholesterol: No Chemotherapy: No Chest Pain: No Congestive Heart Failure: No Cerebrovascular Accident: No Diminished Hearing: Yes (right side hearing aids) Endocrine: No Gastrointestinal Disorders: No GERD: No Genitourinary: Yes Hiatal Hernia: Yes Hypertension: Yes Immune Disorder: No Inguinal Hernia: Yes Implanted Vascular Access Dvce: No Kidney Stones: No Musculoskeletal: No Neurologic: Yes Psychiatric: No Reproductive: No Respiratory: No Migraines: No Radiation Therapy: No Renal Failure: Yes Seizures: No Sickle Cell Disease: No Ulcer: No PNEUMOCCOCAL Vaccine (Year): 1 Past Surgical History Abdominal Surgery: No AICD: No Appendectomy: Yes Arteriovenous Shunt: No Body Medical Devices: merrill Cardiac Surgery: No Ear Surgery: No Endocrine Surgery: No Eye Surgery: Yes Genitourinary Surgery: No Gynecologic Surgery: No Insulin Pump: No Joint Replacement: No Neurologic Surgery: Yes Oral Surgery: No Thoracic Surgery: No Other Surgery: Yes Social History Alcohol Use: Yes (Occassional) Tobacco Use: No Substance Use: No Allergies-Medications (Allergen,Severity, Reaction): Coded Allergies: Sulfa (Verified Allergy, Severe, Hives, 11/28/16) Reported Meds & Prescriptions Reported Meds & Active Scripts Active Flagyl (Metronidazole) 500 Mg Tab 500 Mg PO Q8HR Reported Metoprolol Tartrate 25 Mg Tab 25 Mg PO DAILY Diltiazem CD 24 HR 120 Mg Caper 120 Mg PO DAILY Famotidine 20 Mg Tab 20 Mg PO BID Donepezil 5 Mg Tab 5 Mg PO HS Review of Systems Except as stated in HPI: all other systems reviewed are Neg Genitourinary: Positive: Hematuria Physical Exam Narrative GENERAL: SKIN: Warm and dry. HEAD: Atraumatic. Normocephalic. EYES: Pupils equal and round. No scleral icterus. No injection or drainage. ENT: No nasal bleeding or discharge. Mucous membranes pink and moist. NECK: Trachea midline. No JVD. CARDIOVASCULAR: Regular rate and rhythm. RESPIRATORY: No accessory muscle use. Clear to auscultation. Breath sounds equal bilaterally. GASTROINTESTINAL: Abdomen soft, non-tender, nondistended. Hepatic and splenic margins not palpable. MUSCULOSKELETAL: Extremities without clubbing, cyanosis, or edema. No obvious deformities. NEUROLOGICAL: Awake and alert. No obvious cranial nerve deficits. Motor grossly within normal limits. Five out of 5 muscle strength in the arms and legs. Normal speech. PSYCHIATRIC: Appropriate mood and affect; insight and judgment normal. Data Data Last Documented VS Vital Signs Date Time Temp Pulse Resp B/P Pulse Ox O2 Delivery O2 Flow Rate FiO2 11/28/16 13:34 11/28/16 13:19 97.9 67 16 96 Orders Urinalysis - C+S If Indicated (11/28/16 13:28) Ct Abd/Pel W/O Iv Contrast (11/28/16 13:28) Sodium Chloride 0.9% Flush (Ns Flush) (11/28/16 13:30) Bladder/Catheter Irrigation (11/28/16 13:28) MDM Medical Decision Making Medical Screen Exam Complete: Yes Emergency Medical Condition: Yes Medical Record Reviewed: Yes Differential Diagnosis UTI VS SPONT HEMORR DUE TO MERRILL IRRITATION Narrative Course MERRILL IS SPONT DRAINING BUT THERE IS SOME BLOOD IN DRAINAGE BAG, WILL IRRIGATE TIL CLEAR, CHECK UA FOR POSS UTI AND IF POS WILL ADD ABX AND ADVISE FOLLOWUP WITH UROLOGIST.... OF NOTE TODAY MERRILL WAS REPLACED BECAUSE PATIENT ACCIDENTALLY PULLED OUT HIS FIRST MERRILL, WHICH FULLY EXPLAINS BLEEDING. WILL D/ C HOME, GOT CALL FROM HOME HEALTH NURSE WHO COLLECTED AND SENT UA FROM MERRILL AFTER PLACING NEW ONE IN. Diagnosis Primary Impression: MERRILL CATHETER CARE Additional Impression: HEMATURIA DUE TO MERRILL Patient Instructions: Merrill Catheter Placement and Care (ED), General Instructions Disposition: 01 DISCHARGE HOME Condition: Stable Mayank Owens MD Nov 28, 2016 13:39
--- NOTE | 2016-11-28 14:40 | RADHPO ---
EXAM DATE/TIME: 11/28/2016 13:35 [facility] COMPARISON: CT ABDOMEN & PELVIS W/O CONTRAST, June 29, 2015, 20:33. INDICATIONS : Blood in catheter. Evaluate for renal stone. ORAL CONTRAST: No oral contrast ingested. RADIATION DOSE: 12.81 CTDIvol (mGy) MEDICAL HISTORY : Alzheimer's Hypertension. Renal failure, chronic. Hiatal hernia. SURGICAL HISTORY : Appendectomy. ENCOUNTER: Initial ACUITY: 1 day PAIN SCALE: 0/10 LOCATION: Abdomen. TECHNIQUE: Volumetric scanning of the abdomen and pelvis was performed. Using automated exposure control and ad justment of the mA and/or kV according to patient size, radiation dose was kept as low as reasonably achievable to obtain optimal diagnostic quality images. FINDINGS: Severe hydronephrosis is bilaterally. The ureters are markedly dilated to the level of the urinary b ladder. No calcified obstructed calculi are identified within the distal ureters. Urinary bladder is non-disten ded and contains a Root catheter. The wall of the urinary bladder is diffusely thickened. Cystoscopy would be more sensitive to rule out bladder wall mass in this patient if clinically indicated. There is marked cortical thinnin g involving the left kidney. A small cyst is noted within the right kidney and measures 8 mm. Uncomplicated colonic diverticulosis is noted. No acute diverticulitis is noted. The prostate gland is enlarged. Evaluat ion of the solid organs is limited by a lack of intravenous contrast. Degenerative changes and scoliosis of the thora columbar spine are noted. A ventriculoperitoneal shunt is again noted. A right inguinal hernia is noted and contains only fat. CONCLUSION: 1. Severe ureteropelvic caliectasis bilaterally. 2. Extensive diffuse urinary bladder wall thickening. Cystoscopy would be more sensitive to rule ou t bladder wall mass in this patient if clinically indicated. 3. Enlarged prostate. 4. Uncomplicated colonic diverticulosis. 5. Degenerative changes and scoliosis of the thoracolumbar spine. 6. Right inguinal hernia containing only fat. Romario Adkins MD on November 28, 2016 at 14:09 Board Certified Radiologist. This report was verified electronically.
[2016-11-28 15:07] VITALS: BP 101/69; PULSE 92; RESP 14; O2SAT 97
== END 2016-11-28 15:34 | disposition home or self-care (01) ==
LOC: PHED 13:10
DX: T83.83XA Hemorrhage due to genitourinary prosthetic devices, implants and grafts, initial encounter (principal); Y84.6 Urinary catheterization as the cause of abnormal reaction of the patient, or of later complication, without mention of misadventure at the time of the procedure; I12.9 Hypertensive chronic kidney disease with stage 1 through stage 4 chronic kidney disease, or unspecified chronic kidney disease; N18.9 Chronic kidney disease, unspecified
CPT/HCPCS: 51700; 74176